=== PATIENT | female | born 1940 | race Caucasian/White ===

== ENCOUNTER 2022-02-15 12:12 | Outpatient (CLI) | payer MEDICARE, SELFPAY ==
[2022-02-15 12:54] LABS: Hematocrit 40.4 % (37.0-47.0); Hemoglobin 13.2 g/dL (12.0-15.0)
[2022-02-15 13:03] LABS: Estimated Glomerular Filt Rate > 60; Glucose 94 mg/dL (65-110)
== END 2022-02-15 12:13 | disposition home or self-care (01) ==
LOC: ANHLAB 12:15
PROVIDERS: PCP Family Medicine; Visit Provider Orthopaedic Surgery
DX: M17.11 Unilateral primary osteoarthritis, right knee (principal); Z01.818 Encounter for other preprocedural examination
CPT/HCPCS: 36415; 82040; 82565; 82947; 85014; 85018

== ENCOUNTER 2022-03-18 10:58 | Outpatient (CLI) | payer MEDICARE, SELFPAY ==
[2022-03-18 12:28] LABS: Basophils Percent Auto 0.5 % (0.2-1.2); Eosinophils Absolute Auto 0.2 K/mm3 (0-0.3); Hemoglobin 13.5 g/dL (12.0-15.0); Lymphocytes Absolute Auto 1.61 K/mm3 (0.9-3.2); Lymphocytes Percent Auto 28.3 % (18.3-44.2); Mean Corpuscular HGB Conc 32.1 g/dl (32-36); Mean Corpuscular Hemoglobin 32.1 pg (26-34); Mean Platelet Volume 11.1 fl (7.4-10.4); Monocytes Absolute Auto 0.5 K/mm3 (0.1-0.6); Monocytes Percent Auto 8.5 % (2.6-8.5); Neutrophils Absolute Auto 3.4 K/mm3 (1.3-6.7); Neutrophils Percent Auto 59.7 % (45.5-73.1); Platelet Count Result 156 k/mm3 (150-375); Red Cell Distribution Width 13.3 % (11.5-14.5); White Blood Count 5.7 K/mm3 (4.5-10.0)
[2022-03-18 12:33] LABS: Albumin Level 4.2 g/dL (3.5-5.1)
[2022-03-18 12:37] LABS: Anion Gap 4 mmol/L (8-16); Blood Urea Nitrogen 24 mg/dL (7-17); Calcium 9.1 mg/dL (8.4-10.2); Carbon Dioxide 35 mmol/L (22-30); Chloride 100 mmol/L (98-107); Estimated Glomerular Filt Rate 60; Glucose 107 mg/dL (65-110); Potassium 5.4 mmol/L (3.4-5.0); Sodium 139 mmol/L (137-145)
[2022-03-18 12:40] LABS: Hemoglobin A1C 5.3 % (<5.7)
[2022-03-18 12:40] LABS: Urine Cotinine NEGATIVE
== END 2022-03-18 10:59 | disposition home or self-care (01) ==
LOC: ANHSURGERY 11:07
PROVIDERS: Anesthesiology; PCP Family Medicine; Visit Provider Orthopaedic Surgery
DX: Z01.812 Encounter for preprocedural laboratory examination (principal); M17.0 Bilateral primary osteoarthritis of knee; Z51.81 Encounter for therapeutic drug level monitoring; Z79.899 Other long term (current) drug therapy
CPT/HCPCS: 80048; 80307; 82040; 83036; 85025; 87081

== ENCOUNTER 2022-04-20 00:11 | Day surgery (SDC) | payer MEDICARE, SELFPAY ==
--- NOTE | 2022-03-18 10:53 | PC.NURSE ---
Addendum entered by Janell Nicholas RN 03/18/22 12:03: PT/DAUGHTER INSTRUCTED NOT TO TAKE ESCITALOPRAM THE AM OF SURGERY - UNDERSTANDING VOICED. Addendum entered by Janell Nicholas RN 03/18/22 11:50: PT/DAUGHTER INSTRUCTED FOR PT TO TAKE LAMOTRIGINE AM OF SURGERY - UNDERSTANDING VOICED Original Note: Report to the Outpatient Waiting Room, entrance under the green pavilion located off [address], at time _0600_ on date _04/20/22_. OR Time: _729_. PACK A SMALL OVERNIGHT BAG AND LEAVE IN THE CAR - You and your visitor will be asked a series of questions to screen for COVID 19 for your protection. - Only one visitor is allowed at this time. - The patient visitor is requested to leave or wait in car when not with patient. VISITING HOURS 10AM-8PM, USE MAIN HOSPITAL ENTRANCE #1 - A mask is required within the hospital. Patients may have clear liquids (water, carbonated beverages, clear teas, apple juice) until 3 hours prior to surgery (0430 AM) with a maximum of 20 ounces. - No food from midnight until time of surgery Take the following medications with a SIP of water the morning of surgery: _ESCITALOPRAM, METOPROLOL, DORZOLAMIDE EYE DROP, PAIN MED IF NEEDED._ Medications to discontinue per DR. TONY - ASPIRIN & MELOXICAM 7 DAYS PRIOR TO SURGERY, Date to take last dose 04/12/22_ Medications to discontinue per ANESTHESIA - PRESERVISION AREDS-2 3 DAYS PRIOR TO SURGERY, Date to take last dose 04/16/22_ Please no make-up, nail french, hairspray, perfume, deodorant, or body powder the day of surgery. No jewelry (including any body piercings) or valuables the day of surgery, leave them at home. Please take a shower or bath the night before, or the morning of, surgery with an antibacterial soap. Wear comfortable, loose fitting clothing. - Jewelry must be removed prior to entering the operating room. Rings and piercings that are not removed may be cut off. - The hospital will not accept responsibility for valuables. - Please leave all valuables, including medications, at home the day of surgery. If you are going home after surgery, a licensed diesel pile driver operator must drive you home. - NO public transportation without another adult. - We recommend that an adult stay with you for 24 hours following discharge. - We also recommend that you do not drive, make important decision, drink alcoholic beverages, or take any drugs that were not prescribed by your health care provider for at least 24 hours after your discharge time. Follow any additional instructions given to you from DR. TONY. TOTAL JOINT CLASS 04/14/22 @ [address] [place] [address] LOWER LEVEL, USE MAIN HOSPITAL ENTRANCE # 1 If you or anyone in your household have experienced Covid symptoms in the week before your surgery, please notify your surgeon or the nurse liaison at the phone number below for possible testing. Instructions given to _PT & DAUGHTER ( JESSICA)_and asked if any additional questions and then verbalized understanding. Patient advised to call surgeon office or pre surgery nurse liaison [phone] if any additional questions.
[2022-03-18 11:39] VITALS: BP 180/80; PULSE 62; RESP 18; TEMP 36.7; O2SAT 95; BMI 30.7
--- NOTE | 2022-04-19 13:39 | WPDANESEPPF ---
Anes - Initial Pre Proc Eval Procedure: Operation Date: 04/20/22 07:30 Proposed Procedures p Right Total Knee Arthroplasty - Benjamin Rodriguez MD Date/Time: 04/19/22 13:39 Surgeon: Benjamin Rodriguez MD Pre Op Diagnosis: primary oa right knee Patient Data Age: 81 Gender: F Height: 1.64 m Weight: 82.5 kg Last Vital Signs Temp 36.7 C 03/18/22 11:39 Pulse 62 03/18/22 11:39 Resp 18 03/18/22 11:39 BP 180/80 H 03/18/22 11:39 Pulse Ox 95 03/18/22 11:39 O2 Del Method Room Air 03/18/22 11:39 Allergies Allergy/AdvReac Type Severity Reaction Status Date / Time No Known Allergies Allergy Verified 04/20/22 06:04 Home Medications Medication Instructions Recorded Confirmed Type aspirin 81 mg chewable tablet 81 mg PO HS 02/10/22 04/20/22 History (Abe Chewable Low Dose Aspirin) escitalopram oxalate 20 mg tablet 20 mg PO HS 02/10/22 04/20/22 History hydrochlorothiazide 25 mg tablet 25 mg PO QAM 02/10/22 04/20/22 History lamotrigine 200 mg tablet 200 mg PO QAM 02/10/22 04/20/22 History losartan 50 mg tablet 50 mg PO BID 02/10/22 04/20/22 History metoprolol tartrate 25 mg tablet 75 mg PO QAM 02/10/22 04/20/22 History simvastatin 20 mg tablet 20 mg PO HS 02/10/22 04/20/22 History vit C 250 mg-vit E 90 mg-zinc 40 1 tablet PO BID 02/10/22 04/20/22 History mg-copper 1 [id number] capsule (PreserVision AREDS-2) dorzolamide 2 % eye drops (Trusopt) 1 drp TID 03/18/22 04/20/22 History latanoprost 0.005 % eye drops 1 drp HS 03/18/22 04/20/22 History amlodipine 5 mg tablet 5 tablet PO QPM 04/20/22 04/20/22 History Patient hx anesthesia problems: none Family hx anesthesia problems: none Results Review: All pre-operative results and documents have been reviewed as part of the pre-operative evaluation. PMFSH Past Medical History Medical History (Updated 04/19/22 @ 13:40 by Guero Thomas MD) Arthritis History of benign ovarian tumor (~2002) History of bipolar disorder History of breast cancer (~2002) History of stress test Hyperlipidemia Hypertension CAT (obstructive sleep apnea) Surgical History Surgical History History of carpal tunnel release (~2020) History of cataract surgery History of hysterectomy (~2002) Family History Family History Other Cancer Social History Social History Smoking packs per day: 1 Smoking cigarettes per day: 20.0 Years smoked: 41 Smoking pack-years: 41.00 Smoking status: Former smoker Tobacco type: cigarettes Second hand tobacco smoke exposure: No Smoking end date: 11/14/79 Alcohol intake: never Drinks per week: 2 Substance use: never Substance use type: does not use Living arrangements: with friend(s) Additional living arrangements comments: LIVES WITH FRIEND JUAN ERICKSON Spiritual care concerns: No Anes - Eval Final PreProcedure Day of Procedure 04/19/22 13:39 Patient weight: obese Heart: regular rate and rhythm Lungs: clear to auscultation and normal air movement Airway: Mallampati scale class II Neurological: alert and oriented Last oral intake: >/= 8 hours ASA classification: III Emergent: no Anesthetic plan: proceed Anesthesia type and monitoring: general LMA Results Review: All pre-operative results and documents have been reviewed as part of the pre-operative evaluation. Informed Consent: The patient's anesthetic plan and its attendant risks and benefits were discussed with the patient/family/POA. Questions were solicited and answers provided to the satisfaction of the patient/family/POA.
--- NOTE | 2022-04-19 13:40 | WPDANESPNB ---
Anes - Peripheral Nerve Block Date/Time: 04/19/22 13:40 I have discussed with the patient/family/POA the placement of a peripheral nerve block for post-operative pain management, including associated risks, benefits, complications, and side effects. Alternative methods of post-operative analgesia were detailed. Questions were solicited and answers provided to the satisfaction of the patient/family/POA. Time-Out: A pre-procedural Time-Out was completed immediately before starting the procedure and confirmed: Patient Identification, Site, Procedure, Patient Position and the Availability of Requisite Equipment. Clinical Indications: Acute post-operative pain management requested by the operative surgeon. Nerve Block Insertion Note Anes-nerve block: adductor canal right Patient position: supine Skin prep: chlorhexidine Needle: 22 gauge, stimulating, insulated echogenic needle. Needle length: 80 mm Technique: ultrasound Technique comment: in plane Injectate: bupivacaine 0.5% with epi 5 mcg/ml (30cc) Observations: tolerated well Complications: none Procedure start time:: 715 Procedure end time:: 720
[2022-04-20] VITALS (17 sets, daily range): BP systolic 97–119; BP diastolic 42–60; PULSE 69–88; RESP 12–17; TEMP 36.3–37; O2SAT 91–100
--- NOTE | ~2022-04-20 | XR_ITS ---
EXAMINATION: XR knee RT 2V DATE: 04/20/2022 10:10 CDT INDICATION: Right total knee arthroplasty TECHNIQUE: 2 views right knee FINDINGS: There is a right total knee arthroplasty in expected position. Subcutaneous gas with fluid and air in the joint are consistent with recent surgery. No evidence of periprosthetic fracture. IMPRESSION: 1. Recent right total knee arthroplasty. Reviewed, dictated and finalized at location B.
[2022-04-20] MEDS: ACETAMINOPHEN 500 MG TABLET 1000 MG PO (06:10)
[2022-04-20] MEDS: LACTATED RINGERS 1,000 ML 30 ML IV CONT ×2 (06:56→09:52)
[2022-04-20] MEDS: TRANEXAMIC ACID 1,000MG/ISO100 1,000 MG/100 ML BAG 200 MG IVPB (06:56)
--- NOTE | 2022-04-20 07:17 | WPDHPUPDATE1 ---
History and Physical Update Update Date/Time: 04/20/22 07:17 History and Physical has been reviewed, including an updated exam of the patient. There are NO changes in the patient's condition. Risks, benefits, and alternatives have been discussed and questions answered. Patient agrees to proceed with procedure.
[2022-04-20] MEDS: ceFAZolin 2 GM/D5W 50 ML 2 GM/50 ML BAG IVPB ×2 (07:29→16:45)
--- NOTE | 2022-04-20 13:59 | PM.IMCN ---
Assessment and Plan Assessment and plan (1) Status post total right knee replacement: Code(s): Z96.651 - Presence of right artificial knee joint Status: Acute Assessment and Plan: POD 0 Post op care managed by ortho Pain medications: Oxycodone 5-10 mg p.o. Q 4 p.r.n., meloxicam 7.5 mg p.o. b.i.d. Antibiotic therapy: Cefazolin x3 bags Antiemetic Zofran 4 mg q.4 DVT prophylaxis per Orthopedic surgery PT and OT Weight-bearing status as tolerated (2) Primary osteoarthritis of knees, bilateral: Code(s): M17.0 - Bilateral primary osteoarthritis of knee Status: Acute Assessment and Plan: See above (3) Hypertension: Code(s): I10 - Essential (primary) hypertension Status: Acute Assessment and Plan: Current BP 102/57 Continue Home losartan 50mg PO BID, metoprolol 75mg PO Qam, amlodipine 5 PO, HCTZ 25mg PO Trend Blood pressure Adjust therapy as indicated (4) CAT (obstructive sleep apnea): Code(s): G47.33 - Obstructive sleep apnea (adult) (pediatric) Status: Acute Assessment and Plan: Continue with home treatment (5) Hyperlipidemia: Code(s): E78.5 - Hyperlipidemia, unspecified Status: Acute Assessment and Plan: Continue home simvastatin Check LFTs in the am HPI Data of Consult Consult date: 04/20/22 Requesting Physician: Benjamin Rodriguez MD Primary Care Provider: Zack SweeneyMD Consult Narrative Narrative: Jacquie Peters is a 81 year old female with a past medical history of HTN, HLD, and CAT who is here for an elective right knee replacement with Dr. Rodriguez. She is currently sitting in the chair and she is saying that she has very little pain. She currently has ice on her knee. She also is alert and oriented x 4 and is very aware. It was brought to my attention that her blood pressure can be as high as 180/95. However she stated that her blood pressure has actually been doing well. Her daughter stated that her blood pressure has been running even in preop. She stated that she is going to call the chief design engineer Dr. Earl about her blood pressure. She is doing really well. She is denying chest pain, shortness of breath, nausea, vomiting, diarrhea, constipation, weakness, or fatigue. Review of Systems Review of Systems: All systems reviewed & are unremarkable except as noted in HPI and below PMFSH Past Medical History Medical History Arthritis History of benign ovarian tumor (~2002) History of bipolar disorder History of breast cancer (~2002) History of stress test Hyperlipidemia Hypertension CAT (obstructive sleep apnea) Surgical History Surgical History History of carpal tunnel release (~2020) History of cataract surgery History of hysterectomy (~2002) Family History Family History Other Cancer Social History Social History (Updated 04/20/22 @ 14:02 by CRESCENCIO Valentin) Social History: Patient lives with a friend. She wishes to be a full code at this time. She wants her surrogate to be Smoking packs per day: 1 Smoking cigarettes per day: 20.0 Years smoked: 41 Smoking pack-years: 41.00 Smoking status: Former smoker Second hand tobacco smoke exposure: No Alcohol intake: never Drinks per week: 2 Substance use: never Substance use type: does not use Living arrangements: with friend(s) Additional living arrangements comments: LIVES WITH FRIEND JUAN ERICKSON Spiritual care concerns: No Meds Home Medications and Allergies Home Medications Medication Instructions Recorded Confirmed Type aspirin 81 mg chewable tablet 81 mg PO HS 02/10/22 04/20/22 History (Abe Chewable Low Dose Aspirin) escitalopram oxalate
[2022-04-20] MEDS: ASPIRIN 81 MG ENTERIC TABLET PO (16:45)
[2022-04-20] MEDS: SENNA/DOCUSATE SODIUM TABLET 2 TAB PO (16:46)
[2022-04-20] MEDS: LOSARTAN POTASSIUM 50 MG TABLET PO (16:47)
[2022-04-20] MEDS: MELOXICAM 7.5 MG TABLET PO (16:48)
[2022-04-20] MEDS: amLODIPine BESYLATE 5 MG TABLET PO (17:01)
--- NOTE | 2022-04-20 17:32 | W.PM.PROC2 ---
Procedure Note - Detailed Date of Procedure 04/20/22 Pre-op Diagnosis primary oa right knee Post-op Diagnosis Same Procedure Performed Total knee arthroplasty, right. Surgeon Benjamin Rodriguez MD Snuff Packing Machine Operator April Sheikh PA-C Anesthesia General and Regional (subsartorial block) Findings Bone quality was fair. Moderate valgus deformity was passively correctable. Thus only minimal releases along the lateral tibial capsular margin were required for balancing of the knee. Description of Procedure The patient was brought to the operating room. A general anesthetic was administered. The leg was prepped and draped in the usual sterile fashion. The limb was elevated and the tourniquet inflated to 300 mmHg during initial exposure, and cementation. A longitudinal incision was created along the medial border of the patella and patellar tendon, and a trivector approach to the knee was performed. No medial release was taken. Slight lateral release at the anterior and lateral tibia. The knee was then flexed. The osteophytes were carefully removed. The intramedullary guide was placed in the femoral canal. The distal femoral resection was then taken with the oscillating saw. The collateral ligaments were carefully protected. The tibia was carefully exposed. The jig was applied, and the proximal tibia was resected according to preoperative plan. The knee was balanced in extension. Appropriate releases were taken where needed. The anterior cruciate ligament and meniscal remnants were removed. The posterior cruciate ligament was preserved. The patella was measured. Patellar resection was carried out with the oscillating saw. The lug holes drilled. The femur was sized and rotation assessed using a combination of gap balancing, posterior referencing, and the AP axis. The 4 in 1 cutting block was used to finish the femoral cuts after equal gaps were assured. The osteophytes were carefully removed from the back of the knee. The knee was copiously irrigated with antibiotic solution periodically throughout the procedure. The meniscal remnants were removed. The spacer block was used to confirm equal flexion and extension gaps. The tibia was sized and broached. The bony surfaces were prepared for cementing with pulsatile lavage. The real tibial and femoral and patellar components were cemented into position. Excess cement was carefully removed. Patellar tracking was carefully assessed. No additional releases were required. Dilute sterile Betadine soak performed for three minutes. Copious irrigation then performed. The wound was closed with #1 Vicryl suture, #2, 2-0, and 3-0 barbed suture, followed by Steri-Strips. A sterile bulky dressing was applied. Meticulous hemostasis was maintained throughout the procedure. The bipolar cautery device was used. The pain relieving mixture was injected into the periarticular tissues during the procedure. There were no complications. The patient was extubated and brought to the recovery room in stable condition after the application of sterile dressing with [place] bandage. Implants SHIMAU[employer] Print System Triathlon knee system, low profile cemented tibia size 3, cemented cruciate retaining femoral component size 3 ,and an 11 mm cruciate retaining polyethylene insert. 32mm asymmetric all polyethylene patella component. Estimated Blood Loss 200 Drains No Pathology None sent Complications No immediate complications Condition Stable Disposition PACU [facility] Billing Surgery - Charge Forward: Surgery Billing
[2022-04-20] MEDS: FAMOTIDINE 20 MG TABLET PO (20:37)
[2022-04-20] MEDS: SIMVASTATIN 20 MG TABLET PO (20:37)
[2022-04-20] MEDS: ESCITALOPRAM OXALATE 10 MG TABLET 20 MG PO (20:37)
[2022-04-20] MEDS: oxyCODONE HCL (*CRX) 5 MG TAB IR PO (20:41)
[2022-04-21 00:41] VITALS: BP 137/57; PULSE 70; RESP 16; TEMP 37.1; O2SAT 93
[2022-04-21] MEDS: ceFAZolin 2 GM/D5W 50 ML 2 GM/50 ML BAG IVPB ×2 (00:42→09:10)
[2022-04-21 04:41] VITALS: BP 114/53; PULSE 79; RESP 16; TEMP 36.3; O2SAT 94
[2022-04-21 05:35] LABS: Basophils Percent Auto 0.3 % (0.2-1.2); Eosinophils Percent Auto 0.7 % (0-4.4); Hemoglobin 11.6 g/dL (12.0-15.0); Immature Platelet Fraction Pct 5.4 % (0.9-11.2); Lymphocytes Absolute Auto 0.25 K/mm3 (0.9-3.2); Lymphocytes Percent Auto 8.6 % (18.3-44.2); Mean Corpuscular HGB Conc 32.2 g/dl (32-36); Mean Corpuscular Volume 99.4 fl (80-100); Mean Platelet Volume 11.1 fl (7.4-10.4); Monocytes Absolute Auto 0.3 K/mm3 (0.1-0.6); Monocytes Percent Auto 10.3 % (2.6-8.5); Neutrophils Absolute Auto 2.3 K/mm3 (1.3-6.7); Neutrophils Percent Auto 80.1 % (45.5-73.1); Platelet Count Result 85 k/mm3 (150-375); Red Blood Count 3.62 M/mm3 (4.2-5.4); Red Cell Distribution Width 13.5 % (11.5-14.5); White Blood Count 2.9 K/mm3 (4.5-10.0)
[2022-04-21 05:46] LABS: Alanine Aminotransferase 18 U/L (6-35); Albumin Level 3.6 g/dL (3.5-5.1); Alkaline Phosphatase 61 U/L (38-126); Anion Gap 6 mmol/L (8-16); Aspartate Amino Transferase 32 U/L (14-36); Bilirubin,Total 0.4 mg/dL (0.2-1.3); Blood Urea Nitrogen 40 mg/dL (7-17); Calcium 7.8 mg/dL (8.4-10.2); Carbon Dioxide 30 mmol/L (22-30); Chloride 99 mmol/L (98-107); Estimated CRCL calculation 36 ml/min; Estimated Glomerular Filt Rate 48; Glucose 111 mg/dL (65-110); Magnesium 1.8 mg/dL (1.6-2.3); Potassium 4.2 mmol/L (3.4-5.0); Sodium 135 mmol/L (137-145)
[2022-04-21] MEDS: oxyCODONE HCL (*CRX) 5 MG TAB IR PO (06:22)
[2022-04-21] MEDS: SENNA/DOCUSATE SODIUM TABLET 2 TAB PO (09:09)
[2022-04-21] MEDS: polyethylene glycoL 3350 17 GM POWD.PACK PO (09:09)
[2022-04-21] MEDS: ASPIRIN 81 MG ENTERIC TABLET PO (09:10)
[2022-04-21] MEDS: lamoTRIgine 100 MG TABLET 200 MG PO (09:10)
[2022-04-21 09:11] VITALS: PULSE 79
[2022-04-21] MEDS: METOPROLOL TARTRATE 25 MG TABLET 75 MG PO (09:11)
--- NOTE | 2022-04-21 09:12 | WPDANESPN ---
Anes - Prog Note Post-Op Date/Time: 04/21/22 09:12 Cardiovascular status: normal Respiratory status: normal Airway patency: baseline Mental status: baseline Post-Op hydration status: normal Vital Signs: Last Vital Signs Temp 36.3 C L 04/21/22 04:41 Pulse 79 04/21/22 04:41 Resp 16 04/21/22 04:41 BP 114/53 L 04/21/22 04:41 Pulse Ox 94 04/21/22 04:41 O2 Del Method Room Air 04/20/22 21:12 O2 Flow Rate 2 04/20/22 11:30 Pain Score (VAS): 2 I/O: Intake & Output 04/20/22 04/21/22 04/21/22 23:59 07:59 15:59 Intake Total 540 500 480 Output Total 100 800 Balance 440 -300 480 Laboratory Tests 04/21/22 05:27 04/21/22 05:27 04/20/22 04/21/22 04/21/22 06:54 05:27 05:27 WBC 2.9 L RBC 3.62 L Hgb 11.6 L Hct 36.0 L MCV 99.4 MCH 32.0 MCHC 32.2 RDW 13.5 Plt Count 85 L MPV 11.1 H Immature Gran % (Auto) 0.0 Neut % (Auto) 80.1 H Lymph % (Auto) 8.6 L Branch % (Auto) 10.3 H Eos % (Auto) 0.7 Baso % (Auto) 0.3 Lymph # (Auto) 0.25 L Branch # (Auto) 0.3 Eos # (Auto) 0.0 Baso # (Auto) 0.0 Abs Immat Gran (auto) 0.00 Absolute Neuts (auto) 2.3 Absolute Nucleated RBC 0.0 Nucleated RBC % 0.0 % Immature Plt Fraction 5.4 Sodium 135 L Potassium 4.2 Chloride 99 Carbon Dioxide 30 Anion Gap 6 L BUN 40 H D Creatinine 1.10 H Estim Creat Clear Calc 36 Estimated GFR 48 L Glucose 111 H Calcium 7.8 L Magnesium 1.8 Total Bilirubin 0.4 AST 32 ALT 18 Alkaline Phosphatase 61 Total Protein 6.0 L Albumin 3.6 Antibody Identification Anti-D Antigen Identification C Antigen - NEGATIVE HENRY, Complement Interp Not Performed Patient Feedback: Patient satisfied with anesthetic care.
--- NOTE | 2022-04-21 09:13 | PM.DS ---
DS: Admitting Diagnosis Discharge Date 04/21/22 Admitting Diagnosis OA knee Right DS: Discharge Diagnosis Discharge Diagnosis (1) Status post total right knee replacement: Code(s): Z96.651 - Presence of right artificial knee joint Status: Acute Plan Postop day 1: Right total knee arthroplasty. Patient tolerated procedure well. No complications. Pain manageable with pain medication. No numbness or tingling. We had a lengthy discussion regarding postoperative wound care, limitations, expectations, and exercises. Patient shows good understanding. He has had initial physical therapy and is tolerating it well. DVT prophylaxis: 81 mg baby aspirin b.i.d. for 14 days. Pain medication: Percocet. Prednisone. Meloxicam. Patient has followup appointment with Dr. Rodriguez in 3 weeks. DS: Summary Hospital Course Reason for hospitalization: Total knee arthroplasty Hospital Course: Patient tolerated procedure well. Has had initial PT/OT. Status at Discharge Functional status at discharge: uses cane/walker Overall status at discharge: patient is progressing back to baseline Time Spent with Patient Time attestation: Total time spent providing and/or coordinating discharge services: Exam Narrative: Overweight 81 y/o female. Resting comfortably in bed. Wearing compression socks bilaterally. Dressing intact with no drainage. Moderate swelling. Small area of ecchymosis. No erythema. No hematoma. Range of motion limited due to pain. Calf nontender. Neurologic status intact. No varicosities. Distal pulses palpable. DS: Data Data Completed and Pending Labs on day of discharge: Labs from last 24 hours 04/21/22 04/21/22 04/20/22 05:27 05:27 06:54 WBC 2.9 L RBC 3.62 L Hgb 11.6 L Hct 36.0 L MCV 99.4 MCH 32.0 MCHC 32.2 RDW 13.5 Plt Count 85 L MPV 11.1 H Immature Gran % (Auto) 0.0 Neut % (Auto) 80.1 H Lymph % (Auto) 8.6 L Dickey % (Auto) 10.3 H Eos % (Auto) 0.7 Baso % (Auto) 0.3 Lymph # (Auto) 0.25 L Dickey # (Auto) 0.3 Eos # (Auto) 0.0 Baso # (Auto) 0.0 Abs Immat Gran (auto) 0.00 Absolute Neuts (auto) 2.3 Absolute Nucleated RBC 0.0 Nucleated RBC % 0.0 % Immature Plt Fraction 5.4 Sodium 135 L Potassium 4.2 Chloride 99 Carbon Dioxide 30 Anion Gap 6 L BUN 40 H D Creatinine 1.10 H Estim Creat Clear Calc 36 Estimated GFR 48 L Glucose 111 H Calcium 7.8 L Magnesium 1.8 Total Bilirubin 0.4 AST 32 ALT 18 Alkaline Phosphatase 61 Total Protein 6.0 L Albumin 3.6 Antibody Identification Anti-D Antigen Identification C Antigen - NEGATIVE HENRY, Complement Interp Not Performed Discharge Plan Discharge Patient Disposition: Home, Self-Care Discharge Instructions: See green instruction sheets Patient Instructions: Help Prevent Suicide in Older Adults (DC), Suicide Prevention (DC) Stand Alone Forms: General Discharge Instructions Follow-up/Referrals: April Sheikh PA [Physician Cloud Developer] - Discharge Medications: New prednisone 5 mg tablet 5 mg PO DAILY 21 Days Qty: 21 0RF oxycodone-acetaminophen 5-325 mg tablet 1 - 2 tablet PO Q4-6H MDD 6 PRN (Reason: pain) Qty: 30 0RF meloxicam 15 mg tablet 15 mg PO DAILY Qty: 30 0RF Rx Instructions: Cut in half. Take 1/2 in morning and 1/2 at night. Take with food. Stop if stomach upset. aspirin 81 mg tablet,delayed release (DR/EC) 81 mg PO BID 14 Days Qty: 28 0RF Continued simvastatin 20 mg tablet 20 mg PO HS hydrochlorothiazide 25 mg tablet 25 mg PO QAM metoprolol tartrate 25 mg tablet 75 mg PO QAM losartan 50 mg tablet 50 mg PO BID lamotrigine 200 mg tablet 200 mg PO QAM escitalopram oxalate 20 mg tablet 20 mg PO HS PreserVision AREDS-2 250-90-40-1 mg capsule 1 tablet PO BID latanoprost 0.005 % drops
[2022-04-21] MEDS: MELOXICAM 7.5 MG TABLET PO (09:14)
[2022-04-21] MEDS: FAMOTIDINE 20 MG TABLET PO (09:14)
[2022-04-21] MEDS: LOSARTAN POTASSIUM 50 MG TABLET PO (09:14)
[2022-04-21] MEDS: hydroCHLOROthiazide 25 MG TABLET PO (09:15)
[2022-04-21] MEDS: predniSONE 5 MG TABLET PO (09:15)
[2022-04-21 10:00] VITALS: BP 123/47; PULSE 76; RESP 16; TEMP 36.9; O2SAT 94
[2022-04-21] MEDS: oxyCODONE HCL (*CRX) 5 MG TAB IR 10 MG PO (11:10)
== END 2022-04-21 12:15 | disposition home or self-care (01) ==
LOC: ANHSURGERY 10:11 → ANH2MED 10:59
PROVIDERS: Nurse Practitioner; Orthopaedic Surgery; PCP Family Medicine; Visit Provider Physician Assistant
PROC: (CPT 27447; principal; 2022-04-20 07:30)
DX: M17.11 Unilateral primary osteoarthritis, right knee (principal); G89.18 Other acute postprocedural pain; I10 Essential (primary) hypertension; E78.5 Hyperlipidemia, unspecified; G47.33 Obstructive sleep apnea (adult) (pediatric); Z85.3 Personal history of malignant neoplasm of breast; F31.9 Bipolar disorder, unspecified; Z79.82 Long term (current) use of aspirin; Z87.891 Personal history of nicotine dependence; E66.9 Obesity, unspecified; Z68.29 Body mass index [BMI] 29.0-29.9, adult
CPT/HCPCS: 27447; 64447; 36415; 73560; 80048; 80053; 80307; 82040; 83036; 83735; 85025; 85055; 86850; 86880; 86900; 86901; 86902; 87081; 97110; 97161; 97165; 97530; 97535; A9270; C1713; C1776; J0131; J0171; J0690; J1100; J1885; J2250; J2270; J2405; J2704; J2795; J3010; J7120; J7512

== ENCOUNTER 2022-10-27 12:17 | Outpatient (CLI) | payer MEDICARE, SELFPAY ==
[2022-10-27 12:46] LABS: Hematocrit 39.4 % (37.0-47.0); Hemoglobin 12.8 g/dL (12.0-15.0)
--- NOTE | 2022-10-27 12:48 | ECG_ITS ---
Measurements Intervals [place] Rate: 63 P: 72 UT: 160 QRS: -15 QRSD: 93 T: 24 QT: 391 QTc: 402 Interpretive Statements SINUS RHYTHM NO PREVIOUS ECG AVAILABLE FOR COMPARISON Electronically Signed On 10-27-2022 13:27:12 SCRAP HOOKER by Abi Avalos M.D.
[2022-10-27 12:54] LABS: Albumin Level 4.3 g/dL (3.5-5.1); Estimated Glomerular Filt Rate 60; Glucose 94 mg/dL (65-110)
[2022-10-27 12:57] LABS: Urine Cotinine NEGATIVE
[2022-10-27 12:58] LABS: Hemoglobin A1C 5.6 % (<5.7)
== END 2022-10-27 12:18 | disposition home or self-care (01) ==
PROVIDERS: Visit Provider Orthopaedic Surgery
DX: M17.12 Unilateral primary osteoarthritis, left knee (principal); I10 Essential (primary) hypertension; Z92.89 Personal history of other medical treatment; E78.5 Hyperlipidemia, unspecified; Z79.899 Other long term (current) drug therapy
CPT/HCPCS: 80307; 82040; 82565; 82947; 83036; 85014; 85018; 93005

== ENCOUNTER 2023-01-06 11:48 | Outpatient (CLI) | payer MEDICARE, SELFPAY ==
[2023-01-06 13:20] LABS: Basophils Absolute Auto 0.1 K/mm3 (0.0-0.1); Basophils Percent Auto 0.7 % (0.2-1.2); Eosinophils Absolute Auto 0.2 K/mm3 (0-0.3); Eosinophils Percent Auto 2.4 % (0-4.4); Hematocrit 41.2 % (37.0-47.0); Hemoglobin 13.5 g/dL (12.0-15.0); Immature Granulocyte Absolute 0.07 K/mm3 (0.00-0.031); Immature Granulocyte Percent A 0.8 % (0-0.5); Lymphocytes Absolute Auto 1.83 K/mm3 (0.9-3.2); Mean Corpuscular HGB Conc 32.8 g/dl (32-36); Mean Corpuscular Hemoglobin 32.5 pg (26-34); Mean Platelet Volume 10.9 fl (7.4-10.4); Monocytes Absolute Auto 1.5 K/mm3 (0.1-0.6); Monocytes Percent Auto 16.4 % (2.6-8.5); Neutrophils Absolute Auto 5.5 K/mm3 (1.3-6.7); Neutrophils Percent Auto 59.7 % (45.5-73.1); Platelet Count Result 191 k/mm3 (150-375); Red Blood Count 4.16 M/mm3 (4.2-5.4); Red Cell Distribution Width 13.5 % (11.5-14.5); White Blood Count 9.2 K/mm3 (4.5-10.0)
[2023-01-06 13:26] LABS: Albumin Level 4.3 g/dL (3.5-5.1)
[2023-01-06 13:36] LABS: Urine Cotinine NEGATIVE
[2023-01-06 14:14] LABS: Hemoglobin A1C 5.6 % (<5.7)
[2023-01-07 12:16] LABS: Anion Gap 7 mmol/L (8-16); Blood Urea Nitrogen 22 mg/dL (7-17); Calcium 8.6 mg/dL (8.4-10.2); Carbon Dioxide 33 mmol/L (22-30); Chloride 98 mmol/L (98-107); Estimated Glomerular Filt Rate 60; Glucose 105 mg/dL (65-110); Potassium 4.3 mmol/L (3.4-5.0); Sodium 138 mmol/L (137-145)
== END 2023-01-06 11:49 | disposition home or self-care (01) ==
LOC: ANHSURGERY 11:54
PROVIDERS: PCP Family Medicine; Visit Provider Orthopaedic Surgery
DX: M17.12 Unilateral primary osteoarthritis, left knee (principal); Z01.818 Encounter for other preprocedural examination
CPT/HCPCS: 36415; 80048; 80307; 82040; 83036; 85025; 87081

== ENCOUNTER 2023-06-23 11:50 | Outpatient (CLI) | payer MEDICARE, SELFPAY ==
[2023-06-23 14:09] LABS: Basophils Percent Auto 0.2 % (0.2-1.2); Eosinophils Absolute Auto 0.2 K/mm3 (0-0.3); Eosinophils Percent Auto 2.7 % (0-4.4); Hematocrit 36.4 % (37.0-47.0); Hemoglobin 11.2 g/dL (12.0-15.0); Immature Granulocyte Absolute 0.02 K/mm3 (0.00-0.031); Immature Granulocyte Percent A 0.3 % (0-0.5); Lymphocytes Absolute Auto 1.71 K/mm3 (0.9-3.2); Lymphocytes Percent Auto 29.4 % (18.3-44.2); Mean Corpuscular HGB Conc 30.8 g/dl (32-36); Mean Corpuscular Hemoglobin 31.6 pg (26-34); Mean Corpuscular Volume 102.8 fl (80-100); Mean Platelet Volume 10.7 fl (7.4-10.4); Monocytes Absolute Auto 0.5 K/mm3 (0.1-0.6); Monocytes Percent Auto 8.4 % (2.6-8.5); Neutrophils Absolute Auto 3.4 K/mm3 (1.3-6.7); Platelet Count Result 201 k/mm3 (150-375); Red Blood Count 3.54 M/mm3 (4.2-5.4); Red Cell Distribution Width 15.6 % (11.5-14.5); White Blood Count 5.8 K/mm3 (4.5-10.0)
[2023-06-23 14:21] LABS: Albumin Level 4.1 g/dL (3.5-5.1)
[2023-06-23 14:23] LABS: Anion Gap 5 mmol/L (8-16); Blood Urea Nitrogen 17 mg/dL (7-17); Calcium 8.6 mg/dL (8.4-10.2); Carbon Dioxide 34 mmol/L (22-30); Chloride 100 mmol/L (98-107); Estimated Glomerular Filt Rate > 60; Glucose 95 mg/dL (65-110); Potassium 4.9 mmol/L (3.4-5.0); Sodium 139 mmol/L (137-145)
[2023-06-23 15:20] LABS: Urine Cotinine NEGATIVE
== END 2023-06-23 11:51 | disposition home or self-care (01) ==
LOC: ANHSURGERY 11:56
PROVIDERS: Anesthesiology; PCP Family Medicine; Visit Provider Orthopaedic Surgery
DX: Z01.818 Encounter for other preprocedural examination (principal); Z51.81 Encounter for therapeutic drug level monitoring; M17.12 Unilateral primary osteoarthritis, left knee
CPT/HCPCS: 36415; 80048; 80307; 82040; 83036; 85025; 87081

== ENCOUNTER 2023-07-21 03:02 | Day surgery (SDC) | payer MEDICARE, SELFPAY ==
[2023-06-23 12:01] VITALS: BMI 30.9
[2023-06-23 12:30] VITALS: BP 141/56; PULSE 65; RESP 16; TEMP 37.2; O2SAT 92
--- NOTE | 2023-06-23 12:53 | PC.NURSE ---
Report to the Outpatient Waiting Room, entrance under the green pavilion located off [facility], at time __6:00AM on date __07/21/23 . Planned Procedure Time: __7:30AM . Time changes happen often and if your time is changed the preop area will call you the afternoon before. - You and your visitor will be asked to self-screen and do not enter if you have any COVID symptoms. - A mask is optional within the hospital at this time. Patients may have clear liquids (water, carbonated beverages, clear teas, apple juice) until 3 hours prior to surgery with a maximum of 20 ounces. - No food from midnight until time of surgery Take the following medications with a SIP of water the morning of surgery: _AMLODIPINE, METOPROLOL, LAMOTRIGINE, EYE DROPS DO NOT STOP ANY OF YOUR OTHER PRESCRIPTION MEDICATIONS PRIOR TO SURGERY ?EXCEPT THE FOLLOWING Medications to discontinue per physician HOLD VITAMIN/SUPPLEMENTS FOR 3 DAYS PRE-OP Date to take last dose 07/17/23 Please no make-up, nail emirati, hairspray, perfume, deodorant, or body powder the day of surgery. No jewelry (including any body piercings) or valuables the day of surgery, leave them at home. Please take a shower or bath the night before, or the morning of, surgery with an antibacterial soap. Wear comfortable, loose fitting clothing. Children are encouraged to wear pajamas. - Jewelry must be removed prior to entering the operating room. Rings and piercings that are not removed may be cut off. - The hospital will not accept responsibility for valuables. - Please leave all valuables, including medications, at home the day of surgery. If you are going home after surgery, a licensed coal tram driver must drive you home. - NO public transportation without another adult if you receive anesthesia. - We recommend that an adult stay with you for 24 hours following discharge. - We also recommend that you do not drive, make important decision, drink alcoholic beverages, or take any drugs that were not prescribed by your health care provider for at least 24 hours after your discharge time. Follow any additional instructions given to you from your surgeon. If you or anyone in your household have experienced Covid symptoms in the past week, please notify your surgeon or the nurse liaison at the phone number below for possible testing. Telephone instructions given to _PATIENT AND S.O. and asked if any additional questions and then verbalized understanding. Patient advised to call surgeon office or pre surgery nurse liaison [phone] if any additional questions.
[2023-07-21] VITALS (15 sets, daily range): BP systolic 114–146; BP diastolic 48–80; PULSE 64–81; RESP 10–22; TEMP 36–37.1; O2SAT 91–99
--- NOTE | ~2023-07-21 | XR_ITS ---
EXAMINATION: [id number] DATE: 07/21/2023 09:53 INDICATION: Postoperative evaluation following left total knee arthroplasty. TECHNIQUE: Anteroposterior and lateral views of the left knee were obtained. COMPARISON: None. FINDINGS: Left total knee arthroplasty with patellar resurfacing appears well seated and in near anatomic align ment. No fractures identified. Expected postoperative subcutaneous and intra-articular gas. IMPRESSION: 1. Left total knee arthroplasty, negative for postoperative purposes. Reviewed, dictated and finalized at location A.
[2023-07-21] MEDS: LACTATED RINGERS 1,000 ML 30 ML IV CONT ×2 (06:30→09:28)
[2023-07-21] MEDS: ACETAMINOPHEN 500 MG TABLET 1000 MG PO ×3 (06:45→18:04)
[2023-07-21] MEDS: TRANEXAMIC ACID 1,000MG/ISO100 1,000 MG/100 ML BAG 200 MG IVPB (07:00)
--- NOTE | 2023-07-21 07:00 | WPDANESEPPF ---
Anes - Initial Pre Proc Eval Procedure: Operation Date: 07/21/23 07:30 Proposed Procedures p Left Total Knee Arthroplasty - Benjamin Rodriguez MD Date/Time: 07/21/23 07:00 Surgeon: Benjamin Rodriguez MD Pre Op Diagnosis: primary OA left knee Patient Data Age: 82 Gender: F Height: 1.61 m Weight: 79.8 kg Last Vital Signs Temp 37.2 C 06/23/23 12:30 Pulse 65 06/23/23 12:30 Resp 16 06/23/23 12:30 BP 141/56 H 06/23/23 12:30 Pulse Ox 92 06/23/23 12:30 O2 Del Method Room Air 06/23/23 12:30 Allergies Allergy/AdvReac Type Severity Reaction Status Date / Time No Known Allergies Allergy Verified 07/21/23 06:54 Home Medications Medication Instructions Recorded Confirmed Type escitalopram oxalate 20 mg tablet 20 mg PO HS 02/10/22 07/21/23 History lamotrigine 200 mg tablet 200 mg PO QAM 02/10/22 07/21/23 History losartan 50 mg tablet 50 mg PO BID 02/10/22 07/21/23 History metoprolol tartrate 25 mg tablet 75 mg PO QAM 02/10/22 07/21/23 History vit C 250 mg-vit E 90 mg-zinc 40 1 tablet PO BID 02/10/22 07/21/23 History mg-copper 1 [id number] capsule (PreserVision AREDS-2) dorzolamide 2 % eye drops (Trusopt) 1 drp EACH EYE TID 03/18/22 07/21/23 History latanoprost 0.005 % eye drops 1 drp EACH EYE HS 03/18/22 07/21/23 History amlodipine 5 mg tablet 5 tablet PO QAM 04/20/22 07/21/23 History acetaminophen 500 mg tablet 1,000 mg PO Q6H PRN Pain 06/23/23 07/21/23 History atorvastatin 10 mg tablet 10 mg PO HS 06/23/23 07/21/23 History furosemide 20 mg tablet 20 mg PO QAM 06/23/23 07/21/23 History potassium chloride 10 mEq 10 meq PO QAM 06/23/23 07/21/23 History tablet,extended release(part/cryst) (Klor-Con M) Patient hx anesthesia problems: none Family hx anesthesia problems: none Results Review: All pre-operative results and documents have been reviewed as part of the pre-operative evaluation. [facility] Past Medical History Medical History Arthritis History of benign ovarian tumor (~2002) History of bipolar disorder History of breast cancer (~2002) History of stress test Hyperlipidemia Hypertension CAT (obstructive sleep apnea) Surgical History Surgical History History of carpal tunnel release (~2020) History of cataract surgery History of hysterectomy (~2002) Family History Family History Other Cancer Social History Social History Social History: Patient lives with a friend. She wishes to be a full code at this time. She wants her surrogate to be Smoking packs per day: 1 Smoking cigarettes per day: 20.0 Years smoked: 20 Smoking pack-years: 20.00 Smoking status: Former smoker Tobacco type: cigarettes Second hand tobacco smoke exposure: No Smoking end date: 05/14/80 Alcohol intake: current Drinks per week: 2 Substance use: never Substance use type: does not use Lack of Transportation: No Lack of Food: Never True Current Housing: I Have Housing Concerned About Future Housing: No Difficulty Paying Gas/Electric Bills: No Difficulty Paying for Meds: No Currently Unemployed: No Education: High School Diploma/GED Difficulty w/ Childcare or Family Care: No Living arrangements: with family Additional living arrangements comments: S.O. Spiritual care concerns: No Anes - Eval Final PreProcedure Day of Procedure 07/21/23 07:00 Patient weight: obese Heart: regular rate and rhythm Lungs: clear to auscultation Airway: Mallampati scale class II Neurological: alert and oriented Last oral intake: >/= 8 hours ASA classification: III Emergent: no Anesthetic plan: proceed Anesthesia type and monitoring: general LMA and standard monitoring Results Review: All pre-operative results and d
--- NOTE | 2023-07-21 07:11 | WPDHPUPDATE1 ---
History and Physical Update Update Date/Time: 07/21/23 07:11 History and Physical has been reviewed, including an updated exam of the patient. There are NO changes in the patient's condition. Risks, benefits, and alternatives have been discussed and questions answered. Patient agrees to proceed with procedure.
--- NOTE | 2023-07-21 07:28 | WPDANESPNB ---
Anes - Peripheral Nerve Block Date/Time: 07/21/23 07:28 I have discussed with the patient/family/POA the placement of a peripheral nerve block for post-operative pain management, including associated risks, benefits, complications, and side effects. Alternative methods of post-operative analgesia were detailed. Questions were solicited and answers provided to the satisfaction of the patient/family/POA. Time-Out: A pre-procedural Time-Out was completed immediately before starting the procedure and confirmed: Patient Identification, Site, Procedure, Patient Position and the Availability of Requisite Equipment. Clinical Indications: Acute post-operative pain management requested by the operative surgeon. Nerve Block Insertion Note Anes-nerve block: adductor canal left Patient position: supine Skin prep: chlorhexidine Needle: 22 gauge, stimulating, insulated echogenic needle. Needle length: 80 mm Technique: ultrasound Technique comment: mid 0.5mg fent 50mcg Injectate: bupivacaine 0.5% with epi 5 mcg/ml (30ml no epi) and dexamethasone (mg) (4) Observations: tolerated well Complications: none Procedure start time:: 715 Procedure end time:: 722
[2023-07-21] MEDS: ceFAZolin 2 GM/D5W 50 ML 2 GM/50 ML BAG IVPB ×2 (07:30→15:46)
[2023-07-21] MEDS: GENTAMICIN BONE CEMENT REFOBACIN 1 EACH TOPICAL (08:12)
--- NOTE | 2023-07-21 11:20 | ADMGEN ---
This patient, Jacquie Peters, was admitted to 3 [facility] Surg Room 309-01. Patient/family oriented to hospital policies and general routines including ID bracelet, bed and alarms, visiting hours, pain management, procedures, bathroom and other care routines, personal items, smoking policy, room service/diet, and visiting hours. Information on how to activate the Rapid Response Team has been discussed. Patient/Family are encouraged to report perceived risks to care and to ask questions if they do not understand what they are told or what they should do.
[2023-07-21] MEDS: ASPIRIN 81 MG ENTERIC TABLET PO ×2 (12:10→18:04)
[2023-07-21] MEDS: predniSONE 5 MG TABLET PO (12:11)
[2023-07-21] MEDS: LOSARTAN POTASSIUM 50 MG TABLET PO ×2 (12:13→21:39)
[2023-07-21] MEDS: FAMOTIDINE 20 MG TABLET PO ×2 (12:13→21:39)
[2023-07-21] MEDS: lamoTRIgine 100 MG TABLET 200 MG PO (12:14)
--- NOTE | 2023-07-21 15:28 | P.OP_ITS ---
Procedure Note - Detailed Date of Procedure 07/21/23 Pre-op Diagnosis primary OA left knee Post-op Diagnosis Same Procedure Performed Total knee arthroplasty, left. Surgeon Benjamin Rodriguez MD Surgeon Partner April Sheikh PA-C Anesthesia General and Regional (subsartorial block) Findings No contracture. Good bone quality. Standard resections. Description of Procedure The patient was brought to the operating room. A general anesthetic was administered. The leg was prepped and draped in the usual sterile fashion. The limb was elevated and the tourniquet inflated to 300 mmHg during initial exposure, and cementation. A longitudinal incision was created along the medial border of the patella and patellar tendon, and a trivector approach to the knee was performed. A mild medial release was taken. The knee was then flexed. The osteophytes were carefully removed. The intramedullary guide was placed in the femoral canal. The distal femoral resection was then taken with the oscillating saw. The collateral ligaments were carefully protected. The tibia was carefully exposed. The jig was applied, and the proximal tibia was resected according to preoperative plan. The knee was balanced in extension. Appropriate releases were taken where needed. The anterior cruciate ligament and meniscal remnants were removed. The posterior cruciate ligament was preserved. The patella was measured. Patellar resection was carried out with the oscillating saw. The lug holes drilled. The femur was sized and rotation assessed using a combination of gap balancing, posterior referencing, and the AP axis. The 4 in 1 cutting block was used to finish the femoral cuts after equal gaps were assured. The osteophytes were carefully removed from the back of the knee. The knee was copiously irrigated with antibiotic solution periodically throughout the procedure. The meniscal remnants were removed. The spacer block was used to confirm equal flexion and extension gaps. No further releases were needed. The tibia was sized and broached. The bony surfaces were prepared for cementing with pulsatile lavage. The real tibial and femoral and patellar components were cemented into position. Excess cement was carefully removed. Patellar tracking was carefully assessed. No additional releases were required. Dilute sterile Betadine soak performed for three minutes. Copious irrigation then performed. The wound was closed with #1 Vicryl suture, #2, 2-0, and 3-0 barbed suture, followed by Steri-Strips. A sterile bulky dressing was applied. Meticulous hemostasis was maintained throughout the procedure. The bipolar cautery device was used. The pain relieving mixture was injected into the periarticular tissues during the procedure. There were no complications. The patient was extubated and brought to the recovery room in stable condition after the application of sterile dressing with [place] bandage. Physician assistant program manager, April Sheikh PA-C, required for surgery; including patient positioning, draping, tissue retraction, maintaining instrument position, cement removal, wound closure, and dressing placement. Implants Aphria Triathlon knee system, low profile cemented tibia size 3, cemented cruciate retaining femoral component size 3 ,and an 11 mm cruciate stabilizing polyethylene insert. 32mm asymmetric all polyethylene patella component. Estimated Blood Loss -150.0 Drains No Pathology None sent Complications No immediate complications Condition Stable Disposition PACU [facility] Billing Surgery - Charge Forward: Surgery Billing
[2023-07-21] MEDS: ESCITALOPRAM OXALATE 10 MG TABLET 20 MG PO (21:38)
[2023-07-21] MEDS: ATORVASTATIN 10 MG TABLET PO (21:38)
[2023-07-21] MEDS: SENNA/DOCUSATE SODIUM TABLET 2 TAB PO (21:39)
[2023-07-22] VITALS: BP 138/58; PULSE 77; RESP 16; TEMP 36.5; O2SAT 92
[2023-07-22] MEDS: ACETAMINOPHEN 500 MG TABLET 1000 MG PO ×3 (00:29→12:22)
[2023-07-22] MEDS: ceFAZolin 2 GM/D5W 50 ML 2 GM/50 ML BAG IVPB ×2 (00:31→08:51)
[2023-07-22 04:00] VITALS: BP 135/54; PULSE 77; RESP 20; TEMP 36.4; O2SAT 93
[2023-07-22 06:20] LABS: Basophils Percent Auto 0.1 % (0.2-1.2); Eosinophils Percent Auto 0.3 % (0-4.4); Hematocrit 33.4 % (37.0-47.0); Hemoglobin 10.5 g/dL (12.0-15.0); Immature Granulocyte Absolute 0.04 K/mm3 (0.00-0.031); Immature Granulocyte Percent A 0.5 % (0-0.5); Lymphocytes Percent Auto 16.5 % (18.3-44.2); Mean Corpuscular HGB Conc 31.4 g/dl (32-36); Mean Corpuscular Hemoglobin 32.4 pg (26-34); Mean Corpuscular Volume 103.1 fl (80-100); Mean Platelet Volume 11.6 fl (7.4-10.4); Monocytes Absolute Auto 0.8 K/mm3 (0.1-0.6); Monocytes Percent Auto 10.7 % (2.6-8.5); Neutrophils Absolute Auto 5.2 K/mm3 (1.3-6.7); Neutrophils Percent Auto 71.9 % (45.5-73.1); Platelet Count Result 120 k/mm3 (150-375); Red Blood Count 3.24 M/mm3 (4.2-5.4); Red Cell Distribution Width 12.8 % (11.5-14.5); White Blood Count 7.3 K/mm3 (4.5-10.0)
[2023-07-22 06:28] LABS: Anion Gap 4 mmol/L (8-16); Blood Urea Nitrogen 28 mg/dL (7-17); Calcium 8.3 mg/dL (8.4-10.2); Carbon Dioxide 33 mmol/L (22-30); Chloride 104 mmol/L (98-107); Estimated CRCL calculation 41 ml/min; Estimated Glomerular Filt Rate 60; Glucose 105 mg/dL (65-110); Potassium 4.7 mmol/L (3.4-5.0); Sodium 141 mmol/L (137-145)
[2023-07-22 07:45] VITALS: BP 139/55; PULSE 73; RESP 16; TEMP 36.3; O2SAT 94
--- NOTE | 2023-07-22 08:25 | PM.DS ---
DS: Admitting Diagnosis Discharge Date 07/22/23 Admitting Diagnosis OA knee Left DS: Discharge Diagnosis Discharge Diagnosis (1) Status post total left knee replacement: Code(s): Z96.652 - Presence of left artificial knee joint Status: Acute Assessment and Plan: Postop day 1: Left total knee arthroplasty. Patient tolerated procedure well. No complications. Pain manageable with pain medication. No numbness or tingling. We had a lengthy discussion regarding postoperative wound care, limitations, expectations, and exercises. Patient shows good understanding. She has had initial physical therapy and is tolerating it well. DVT prophylaxis: 81 mg baby aspirin b.i.d. for 14 days. Pain medication: Percocet. Prednisone. Patient has followup appointment with Dr. Rodriguez in 3 weeks. DS: Summary Hospital Course Reason for hospitalization: Total knee arthroplasty Hospital Course: Patient tolerated procedure well. Has had initial PT/OT. Status at Discharge Functional status at discharge: uses cane/walker Overall status at discharge: patient is progressing back to baseline Time Spent with Patient Time attestation: Total time spent providing and/or coordinating discharge services: Exam Narrative: 82-year-old overweight female. Resting comfortably in chair. Alert and oriented x3. No acute distress. Wearing compression socks bilaterally. Dressing dry and intact without drainage. Moderate swelling. No ecchymosis. No erythema. No hematoma. Range of motion limited due to pain. Calf nontender. Neurologic status intact. No varicosities. Distal pulses palpable. DS: Data Data Completed and Pending Labs on day of discharge: Labs from last 24 hours 07/22/23 07/21/23 07/21/23 05:38 06:47 06:47 WBC 7.3 RBC 3.24 L Hgb 10.5 L Hct 33.4 L MCV 103.1 H MCH 32.4 MCHC 31.4 L RDW 12.8 Plt Count 120 L MPV 11.6 H Immature Gran % (Auto) 0.5 Neut % (Auto) 71.9 Lymph % (Auto) 16.5 L [place] % (Auto) 10.7 H Eos % (Auto) 0.3 Baso % (Auto) 0.1 L Lymph # (Auto) 1.20 [place] # (Auto) 0.8 H Eos # (Auto) 0.0 Baso # (Auto) 0.0 Abs Immat Gran (auto) 0.04 H Absolute Neuts (auto) 5.2 Absolute Nucleated RBC 0.0 Nucleated RBC % 0.0 Sodium 141 Potassium 4.7 Chloride 104 Carbon Dioxide 33 H Anion Gap 4 L BUN 28 H D Creatinine 0.90 Estim Creat Clear Calc 41 Estimated GFR 60 Glucose 105 Calcium 8.3 L Blood Type A Negative Antibody Screen Positive Antibody Identification Anti-D Anti-C Antigen Identification TNP HENRY, IgG Interpret Not Performed HENRY, Poly Interpret Negative HENRY, Complement Interp Not Performed Enhanced Crossmatch See Detail Discharge Plan Discharge Patient Disposition: Home, Self-Care Discharge Instructions: See green instructions sheets Stand Alone Forms: General Discharge Instructions Follow-up/Referrals: April Sheikh PA [Physician [facility] Guide] - Discharge Medications: New prednisone 5 mg tablet 5 mg PO DAILY 21 Days Qty: 21 0RF aspirin 81 mg tablet,delayed release (DR/EC) 81 mg PO BID 14 Days Qty: 28 0RF oxycodone-acetaminophen 5-325 mg tablet 1 - 2 tablet PO Q4-6H MDD 6 PRN (Reason: pain) Qty: 30 0RF Continued metoprolol tartrate 25 mg tablet 75 mg PO QAM losartan 50 mg tablet 50 mg PO BID lamotrigine 200 mg tablet 200 mg PO QAM escitalopram oxalate 20 mg tablet 20 mg PO HS PreserVision AREDS-2 250-90-40-1 mg capsule 1 tablet PO BID latanoprost 0.005 % drops 1 drp EACH EYE HS Rx Instructions: EACH EYE dorzolamide [Trusopt] 2 % drops 1 drp EACH EYE TID Rx Instructions: EACH EYE amlodipine 5 mg tablet 5 tablet PO QAM atorvastatin 10 mg tablet 10 mg PO HS furosemide 20 mg tablet 20 mg PO QAM potassium chloride [Kl
[2023-07-22] MEDS: ASPIRIN 81 MG ENTERIC TABLET PO (08:52)
[2023-07-22] MEDS: POTASSIUM CHLORIDE 10 MEQ ER TABLET PO (08:52)
[2023-07-22] MEDS: lamoTRIgine 100 MG TABLET 200 MG PO (08:52)
[2023-07-22] MEDS: FUROSEMIDE 20 MG TABLET PO (08:53)
[2023-07-22] MEDS: predniSONE 5 MG TABLET PO (08:53)
[2023-07-22] MEDS: LOSARTAN POTASSIUM 50 MG TABLET PO (08:53)
[2023-07-22] MEDS: FAMOTIDINE 20 MG TABLET PO (08:53)
[2023-07-22 11:53] VITALS: BP 157/59; PULSE 73; RESP 20; TEMP 36.5; O2SAT 92
[2023-07-22 12:21] VITALS: PULSE 92
[2023-07-22] MEDS: METOPROLOL SUCCINATE EXT REL 25 MG TABCR 75 MG PO (12:21)
[2023-07-22] MEDS: amLODIPine BESYLATE 5 MG TABLET 25 MG PO (12:21)
--- NOTE | 2023-07-22 12:34 | WPDANESPN ---
Anes - Prog Note Post-Op Date/Time: 07/22/23 12:34 Cardiovascular status: normal Respiratory status: normal Airway patency: baseline Mental status: baseline Post-Op hydration status: normal Vital Signs: Last Vital Signs Temp 36.5 C 07/22/23 11:53 Pulse 92 07/22/23 12:21 Resp 20 07/22/23 11:53 BP 157/59 H 07/22/23 11:53 Pulse Ox 92 07/22/23 11:53 O2 Del Method Room Air 07/22/23 08:00 O2 Flow Rate 2 07/21/23 11:30 Pain Score (VAS): 04/23 I/O: Intake & Output 07/21/23 07/22/23 07/22/23 23:59 07:59 15:59 Intake Total 450 300 240 Output Total 500 400 Balance -50 -100 240 Laboratory Tests 07/22/23 05:38 07/22/23 05:38 07/22/23 05:38 WBC 7.3 RBC 3.24 L Hgb 10.5 L Hct 33.4 L MCV 103.1 H MCH 32.4 MCHC 31.4 L RDW 12.8 Plt Count 120 L MPV 11.6 H Immature Gran % (Auto) 0.5 Neut % (Auto) 71.9 Lymph % (Auto) 16.5 L [place] % (Auto) 10.7 H Eos % (Auto) 0.3 Baso % (Auto) 0.1 L Lymph # (Auto) 1.20 [place] # (Auto) 0.8 H Eos # (Auto) 0.0 Baso # (Auto) 0.0 Abs Immat Gran (auto) 0.04 H Absolute Neuts (auto) 5.2 Absolute Nucleated RBC 0.0 Nucleated RBC % 0.0 Sodium 141 Potassium 4.7 Chloride 104 Carbon Dioxide 33 H Anion Gap 4 L BUN 28 H D Creatinine 0.90 Estim Creat Clear Calc 41 Estimated GFR 60 Glucose 105 Calcium 8.3 L Post-procedural complaints: none Patient Feedback: Patient satisfied with anesthetic care.
== END 2023-07-22 14:25 | disposition home or self-care (01) ==
LOC: ANHSURGERY 07:22 → ANH3MEDSUR 11:13
PROVIDERS: Physician Assistant Surgical; PCP Family Medicine; Visit Provider Orthopaedic Surgery
PROC: (CPT 27447; principal; 2023-07-21 07:30)
DX: M17.12 Unilateral primary osteoarthritis, left knee (principal); G89.18 Other acute postprocedural pain; I10 Essential (primary) hypertension; E78.5 Hyperlipidemia, unspecified; G47.33 Obstructive sleep apnea (adult) (pediatric); Z85.3 Personal history of malignant neoplasm of breast; F31.9 Bipolar disorder, unspecified; Z87.891 Personal history of nicotine dependence; E66.9 Obesity, unspecified; Z68.30 Body mass index [BMI] 30.0-30.9, adult
CPT/HCPCS: 27447; 64447; 36415; 73560; 80048; 80307; 82040; 83036; 85025; 86850; 86880; 86900; 86901; 86902; 86922; 87081; 97110; 97116; 97161; 97165; 97530; 97535; A9270; C1713; C1776; J0171; J0690; J1100; J1170; J1885; J2250; J2270; J2405; J2704; J2795; J3010; J7120; J7512

== ENCOUNTER 2024-07-31 16:01 | Outpatient (CLI) | payer MEDICARE, SELFPAY ==
--- NOTE | ~2024-07-31 | XR_ITS ---
EXAM: XR knee LT 3V DATE: 07/31/2024 16:20 HISTORY: Z96.652 - Presence of left artificial knee joint . COMPARISON: 07/21/2023. FINDINGS: Decreased mineralization. No fracture or dislocation. No lytic or blastic lesion. Status p ost left total knee arthroplasty. No hardware fracture or perihardware lucency. No erosion or periost eal change. Large volume joint fluid. IMPRESSION: Osteopenia. No acute osseous finding in the left knee. Uncomplicated appearing left total knee arthroplasty hardware. Large knee joint effusion. Reviewed, dictated and finalized at location K. IMPRESSION: Osteopenia. No acute osseous finding in the left knee. Uncomplicate d appearing left total knee arthroplasty hardware. Large knee joint effusion.
== END 2024-07-31 16:02 | disposition home or self-care (01) ==
LOC: ANHIMG 16:06
PROVIDERS: PCP Family Medicine; Visit Provider Orthopaedic Surgery
DX: M85.88 Other specified disorders of bone density and structure, other site (principal); M25.462 Effusion, left knee; Z96.652 Presence of left artificial knee joint
CPT/HCPCS: 73562

== ENCOUNTER 2024-12-05 14:34 | Outpatient (CLI) | payer MEDICARE, SELFPAY ==
--- NOTE | ~2024-12-05 | XR_ITS ---
HISTORY: S92.355A - Nondisplaced fracture of fifth metatarsal bone... COMPARISON: None TECHNIQUE: 3 views of the left foot were performed FINDINGS: No acute fracture or dislocation is appreciated. Moderate degenerative disease is noted. Subacute nondisplaced fracture of the base of the fifth metatarsal is identified, with callus formati on. Moderate calcaneal spur is noted. Ossification of the insertion of the Achilles tendon is noted. Increased density within the visualized bones for which a systemic process is suspected. No significant soft tissue swelling is present. IMPRESSION: Subacute nondisplaced fracture of the base of the fifth metatarsal with callus formation. Reviewed, dictated and finalized at location A. 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
--- OUTSIDE RECORDS SUMMARY | 2024-12-07 02:17 | XMS_ITS | Encounter Summary ---
Author Organization [facility] Address [address] [place] [address]. [place] [address] [place] [address] Care Team Providers Care Sustainability Purchasing Agent Name Role Phone Zack Sweeney MD Primary Care Provider Chi Earl MD Unavailable [phone] Reason for Visit * Reason Onset Date Comments Information 12/05/2024 Encounter Details Date Type Department Care Team (Late st Contact Info) Description 12/05/2024 Telephone [facility] [address] [place] [address] Zack Sweeney MD [address] [place] [address] Information Social History Tobacco Use Types Packs/Day Years Used Date Smoking Tobacco: Former Cigarettes 1 20 0 11/14/1959 - 11/14/1979 Passive Smoke Exposure: Past Smokeless Tobacco: Never Comments:None Alcohol Use Standard Drinks/Week Comments Yes 3.3 (1 standard drink = 0.6 oz p ure alcohol) Social drinker Humiliation, Afraid, Rape, and Kick questionnair e Answer Date Recorded Within the last year, have y ou been afraid of your partner or ex-partner? No 06/03/2023 Within the last year, have y ou been humiliated or emotionally abused in other ways by your partner or ex-partner? No Within the last year, have y ou been kicked, hit, slapped, or otherwise physically hurt by your partner or ex-partner? No 06/03/2023 Within the last year, have y ou been raped or forced to have any kind of sexual activity by your partner or ex-partner? No 06/03/2023 Social Connection and Isolation Panel [NHANES] A nswer Date Recorded In a typical week, how many times do you talk on the phone with family, friends, or neighbors? Twice a week 06/03/20 How often do you get togethe r with friends or relatives? Three times a week 06/03/2023 How often do you attend chur ch or latter-day services? Never 06/03/2023 Do you belong to any clubs o r organizations such as scientology groups, unions, fraternal or athletic groups, or school groups? Yes 06/03/2023 How often do you attend meet ings of the clubs or organizations you belong to? 1 to 4 times per year 06/03/2023 Are you , , di vorced, , never , or living with a partner? Living with partner 06/03/2023 AUDIT-C Answer Date Recorded Q1: How often do you have a drink containing alc ohol? Monthly or less 06/03/2023 Q2: How many drinks containi ng alcohol do you have on a typical day when you are drinking? 1 or 2 06/03/2023 Q3: How often do you have si x or more drinks on one occasion? Never 06/03/2023 Overall Financial Resource Strain (CARDIA) Answe r Date Recorded How hard is it for you to pa y for the very basics like food, housing, medical care, and heating? Not hard at all 06/03/2023 PHQ-2 Answer Date Recorded Patient Health Questionnaire-2 Score 0 08/21/2024 [facility] - Occupational Stress Questionnaire Answer Date Recorded Do you feel stress - tense, restless, nervous, or anxious, or unable to sleep at night because your mind is troubled all the time - these days? Not at all 06/03/2023 Exercise Vital Sign Answer Date Recorde d On average, how many days pe r week do you engage in moderate to strenuous exercise (like a brisk walk)? 0 days 06/03/2023 On average, how many minutes do you engage in exercise at this level? 0 min 06/03/2023 Hunger Vital Sign Answer Date Recorded Within the past 12 months, y ou worried that your food would run out before you got the money to buy more. Never true 06/03/20 23 Within the past 12 months, t he food you bought just didn't last and you didn't have money to get more. Never true 06/03/2023 PRAPARE - Transportation Answer Date Re corded In the past 12 months, has l ack of transportation kept you from medical appointments or from getting medications? No 05/15 In the past 12 months, has l ack of transportation kept you from meetings, work, or from getting things needed for daily living? No 06/03/2023 Housing Stability Vital Sign Answer Branodn e Recorded In the last 12 months, was t here a time when you were not able to pay the mortgage or rent on time? No 06/03/2023 In the last 12 months, how many places have you lived? 1 06/03/2023 In the last 12 months, was t here a time when you did not have a steady place to sleep or slept in a fdc (including now)? 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 Answer Date of Assessment Author Status No 06/03/2023 6:13 AM Coy Silveira RN Active * Do you have serious difficulty walking or climbing stairs? Answer Date of Assessment Author Status No 06/03/2023 6:13 AM Coy Silveira RN Active * Do you have difficulty dressing or bathing? Answer Date of Assessment Author Status No 06/03/2023 6:13 AM Coy Silveira RN Active * Because of a physical, mental, or emotional condition, do you have difficulty doing errands alone such as visiting a doctor's office or shopping? Answer Date of Assessment Author Status No 06/03/2023 6:13 AM Coy Silveira RN Active documented as of this encounter Mental Status * Because of a physical, mental, or emotional condition, do you have serious difficulty concentrating, remembering, or making decisions? Answer Entry Date Author Status No 06/03/2023 6:13 AM Coy Silveira RN Active documented in this encounter Progress Notes * Loren Kennedy RN - 12/05/2024 4:23 PM CST Addressed via another task EXTINGUISHER INSPECTOR * Cyndi Campuzano - 12/05/2024 3:[address] Rodriguez's office called to let Dr. Sweeney know pt needs an US to rule out DVT's in her leg. Person on the phone asked for our fax number. Informed that our outpatient registration closes at 5 and she would not be back from [place] in time to have it done today. Informed they would need to have her go somewhere local there to have it done. EXTINGUISHER INSPECTOR documented in this encounter Plan of Treatment Upcoming Encounters Date Type Department Care Team (Late st Contact Info) Description 02/07/2025 1:00 PM CDT Office Visit [facility] [address] [place] [address] Zack Sweeney MD [address] [place] [address] 02/22/2025 11:00 AM [place] [address] [place] [address] Georges Gandhi MD [address] [facility] [address] [place] [address] 02/28/2025 10:15 AM CDT [facility] [place] [address] [place] [address] Georges Gandhi MD [address] [facility] [address] [place] [address] 03/19/2025 10:00 AM CDT Appointment [facility] [address] [place] [address] Chi Earl MD [address] [facility]. [place] [address] [place] [address] 04/03/2025 11:30 AM CDT Office Visit [facility] [address] [place] [id number] Chi Earl MD [address] [facility]. [address] [id number] documented as of this encounter Goals Goal Patient Goal Type Associated Problems Recent Progress Patient-Stated? Author Establish Regular Follow-Ups with PCP Lifestyle On track( 023 3:37 PM CDT) No Marylou Carter, RN Note: 06/08/23: PCP appt on 06/14/23 and patient is aware of this appt. Moving forward, please see body of note for patient status and progress towards the goal. Establish Plan for Symptom Monitoring Lifestyle On track( 023 3:37 PM CDT) No Marylou Carter, RN Note: 06/08/23: Moving forward, please see body of note for patient status and progress towards the goal. documented as of this encounter Visit Diagnoses Not on filedocumented in this encounter Additional Health Concerns Assessment Noted Time PHQ-9 Depression Total Score: 14 023 12:45 PM CDT documented as of this encounter Care Teams Sustainability Purchasing Agent Relationship Specialty Start Date End Date Zack Sweeney MD PCP - General FAMILY PRACTICE 04/14/16 Chi Earl MD [facility]. [address] [address] [place] [employer] Developer CARDIOVASCULAR DISEASE 04/14/16 documented as of this encounter
--- OUTSIDE RECORDS SUMMARY | 2024-12-07 02:17 | XMS_ITS | Patient Health Summary ---
Author Organization [facility] Address [address] [place] [address] Care Team Providers Care Die Developer Name Role Phone Zack Sweeney MD Primary Care Provider [phone] Note from [facility],non-owned Affiliates and Associated Physician Practices is amultiple site organization consisting of ambulatory clinics and hospital sitesin [place], [place]. This disclosure is being madepursuant to the Care Everywhere program and may not contain all information available regarding this patient. Last updated 18.[facility] Allergies No known active allergies Medications * Be aware that medications may not be up to date on this document. Alwaysverify current medications with the patient. * escitalopram (LEXAPRO) 20 MG tablet(Started 04/11/2018) Take 20 mg by mouth 2 times daily * lamoTRIgine (LAMICTAL) 200 MG tablet(Started 06/15/2018) Take 200 mg by mouth once daily as needed * losartan (COZAAR) 50 MG tablet(Started 07/21/2018) Take 50 mg by mouth once daily * metoprolol succinate XL 24hr (TOPROL XL) 25 MG tablet(Started 07/29/2018) Take 75 mg by mouth once daily * simvastatin (ZOCOR) 20 MG tablet(Started 07/21/2018) Take 20 mg by mouth once daily * BABY ASPIRIN PO Take 81 mg by mouth * hydroCHLOROthiazide (HYDRODIURIL) 25 MG tablet(Started 05/14/2019) Take 25 mg by mouth once daily 1 refill left * latanoprost (XALATAN) 0.005 % ophthalmic solution(Started 05/25/2019) Instill 2.5 mL into both eyes once daily 3 refills left * meloxicam (MOBIC) 7.5 MG tablet(Started 07/09/2019) Take 7.5 mg by mouth once daily 2 refills left Social History Tobacco Use Types Packs/Day Years Used Date Smoking Tobacco: Former Smokeless Tobacco: Never Sex and Gender Information Value Date Recorded Sex Assigned at Not on file Gender Identity Not on file Sexual Orientation Not on file Last Filed Vital Signs Vital Sign Reading Time Taken Comments Blood Pressure 130/70 08/06/2019 9:13 AM CDT Pulse - - Temperature - - Respiratory Rate - - Oxygen Saturation - - Inhaled Oxygen Concentration - - Weight 85.9 kg (189 lb 6.4 oz) 08/06/2019 9:13 A M CDT Height 165.1 cm (5' 5 ) 08/06/2019 9:13 AM CDT Body Mass Index 31.52 08/06/2019 9:13 AM CDT Procedures * DERMATOPATHOLOGY(Performed 10/24/2023) * DERMATOPATHOLOGY(Performed 09/29/2023) * MAMMOGRAM(Performed 08/13/2019) * MAMMOGRAM(Performed 08/01/2018) * PAP IG RFLX HPV ASCU(Performed 04/30/2013) * LAB HISTORICAL RESULTS-ONBASE(Performed 04/24/2012) * PATHOLOGY/GENETICS HISTORICAL-ONBASE(Performed 12/27/2011) * LAB HISTORICAL RESULTS-ONBASE(Performed 12/20/2011) * LAB HISTORICAL RESULTS-ONBASE(Performed 12/20/2011) * LAB HISTORICAL RESULTS-ONBASE(Performed 08/26/2011) * LAB HISTORICAL RESULTS-ONBASE(Performed 10/28/2010) * LAB HISTORICAL RESULTS-ONBASE(Performed 07/03/2010) * LAB HISTORICAL RESULTS-ONBASE(Performed 03/02/2010) * LAB HISTORICAL RESULTS-ONBASE(Performed 09/22/2009) * LAB HISTORICAL RESULTS-ONBASE(Performed 05/06/2009) * LAB HISTORICAL RESULTS-ONBASE(Performed 01/13/2009) * LAB HISTORICAL RESULTS-ONBASE(Performed 01/03/2009) * LAB HISTORICAL RESULTS-ONBASE(Performed 07/23/2008) * PATHOLOGY/GENETICS HISTORICAL-ONBASE(Performed 07/20/2007) * PATHOLOGY/GENETICS HISTORICAL-ONBASE(Performed 04/29/2003) * CYTOLOGY NON-SCRIPT WRITER PANEL(Performed 04/17/2003) * FROZEN SECTION(Performed 04/16/2003) * PATHOLOGY/GENETICS HISTORICAL-ONBASE(Performed 04/16/2003) Results * DERMATOPATHOLOGY (10/24/2023 12:00 AM INDUSTRIAL RELATIONS SPECIALIST) Only the most recent of2 resultswithin the time period is included. Case Report Dermatopathology Report ? Case: [id number] ? Authorizing Provider: ??Román Bridges MD ?Collected: ? 10/24/2023 12:00 AM ? Ordering Location: ? [facility] ? Received: ?10/25/2023 06:24 AM ? Pathologist: ? Debbie Beckman, ? MD ? Specimen: ?Skin, right medial max ? 3 12:51 PM INDUSTRIAL RELATIONS SPECIALIST DERMATOPATHOLOGY LABORATORY Final Diagnosis Specimen A. SKIN, right medial max: DERMAL SCAR RESIDUAL BASAL CELL CARCINOMA NOT IDENTIFIED (L90.5) CHRONIC PERIFOLLICULITIS (L73.8) 3 12:51 PM [facility] Clinical History BCC Bx Site. Check Margins. 3 12:51 PM [facility] Gross Description Specimen A: Received is one formalin filled container labeled with the patient's name and designated right medial max. The specimen consists of a curettage and desiccation biopsy measuring 6x4x1 mm. Jar 0. 3 12:51 PM [facility] Microscopic Description Specimen A. SKIN, right medial max: There are fibroblasts and collagen bundles oriented parallel to the skin surface. There are elongated blood vessels, some of which are oriented perpendicular to the skin surface. No basal cell carcinoma is identified. There is also a perifollicular lymphohistiocytic infiltrate. 3 12:51 PM [facility] Disclaimer An external and internal positive and negative controls are appropriate for the histochemical, immunohistochemical and immunofluorescence stain(s) in this case (if any), except where stated explicitly. The performance characteristics of the stain(s) cited in this report were developed and its performance characteristic determined by the Dermatopathology Laboratory at [facility], directed by Dr. Tiny Avendaño. These tests need not be, and therefore are not, approved by the [place] Food and Drug Administration. The tests are used for clinical purposes. Billing Codes Specimen Charges Stain Charges 20324 1 3 12:51 PM [facility] Embedded Images 3 12:51 PM [facility] Pathology/Cytolog y TISSUE SPECIMEN FROM SKIN / Unknown 10/24/2023 10/25/2023 6:24 AM INDUSTRIAL RELATIONS SPECIALIST Román Bridges MD LAB - PATHOLOGY/CYTO LOGY ORDERABLES DERMATOPATHOLOGY LABORATORY [facility] Department of Dermatology [facility] [address] [facility] [phone] * MAMMOGRAM (08/13/2019) Only the most recent of2 resultswithin the time period is included. Anatomical Region Laterality Modality Other Historical Provider MD SCANNING ONLY * PAP IG RFLX HPV ASCU (04/30/2013) ENTIRE VAGINA / Unknown 04/30/2013 Narrative [facility] - 05/02/2013 4:16 PM CDT Fani Posadas MD LAB - PATHOLOGY/CYTO LOGY ORDERABLES Performing Organization Address [facility] Co de Phone Number [address] * LAB HISTORICAL RESULTS-ONBASE (04/24/2012) Only the most recent of12 resultswithin the time period is included. 04/24/2012 Historical Provider LAB - CHEMISTRY O RDERABLES Performing Organization Address [facility] Co de Phone Number [address] * PATHOLOGY/GENETICS HISTORICAL-ONBASE (12/27/2011) Only the most recent of4 resultswithin the time period is included. 12/27/2011 Historical Provider LAB - CHEMISTRY O RDERAEPIFANIO Performing Organization Address [facility] de Phone Number [address] * CYTOLOGY NON-SCRIPT WRITER PANEL (04/17/2003 10:18 AM CDT) Result CASE NUMBER [id number] Comment: ORDERING PHYSICIAN ??TIFFANIE POSADAS SPECIMEN TYPE ?Pelvic Washings Date ? 04/17/2003 Physician ?[place] Specimen Adequacy ?Satisfactory for Evaluation Cell Pathology ? Abundant benign mesothelial cells' *Diagnosis ? Negative for malignant or atypical cells. Snomed. ?04/17/2003 1451 <1> Pathologist ?Maverick Morrell M.D. CPT code ? 69164. MISCELLANEOUS SAMPLES / Unknown 04/17/2003 10:18 AM CDT 04/17/2003 10:18 AM CDT Historical Provider MD LAB - PATHOLOGY/C YTOLOGY ORDERABLES * FROZEN SECTION (04/16/2003 3:13 PM CDT) Result CASE NUMBER [id number] Comment: ORDERING PHYSICIAN ??TIFFANIE POSADAS SPECIMEN TYPE ?Tissue-vaginal polyp Date ? 04/16/2003 Physician ?Tiny Posadas Gross Description ? The specimen is received fresh labeled with the patient's name and identified as vaginal polyp . ??The specimen is a fragment of whitish tissue measuring 3 x 2 x 1.5 cm. ??The external surface is smooth and glistening. ??The specimen is serially sectioned to reveal a cyst filled with clear fluid. ??Splash Line Operator sections are submitted for frozen section examination in cassette FSA ??the rest of the specimen is entirely submitted in cassette B. TK/bk The next specimen is identified as left tube and ovary and consists of a single cyst of dilated left ovary measuring 27 x 25 x 15 cm. with attached fragment of fallopian tube measuring 2.5 x 0.5 cm. ??The total weight of the specimen is 2,550 grams. ??The external surface of the ovary is slightly variegated in color but smooth and glistening in most areas. ??The specimen is sectioned to reveal mucus in consistency fluid mucus. ??The cut surface is multiloculated, cystically dilated cavity filled with mucus with multiple areas that appear whitish, firm in consistency. ??Splash Line Operator sections are submitted for frozen section examination in cassettes FSA and D. ??Splash Line Operator sections from different areas of the ovary are submitted in cassettes E through K ?? cassette L, fallopian tube. TK/bk The next container is identified as omentum and consists of a single fragment of adipose tissue measuring 39 x 10 x 0.5 cm. ??On sectioning, it is grossly unremarkable. ??Splash Line Operator sections are submitted in cassettes M and N. The next container is identified as sigmoid appendage and consists of an irregularly-shaped fragment of adipose tissue measuring 5 x 1.5 x 2.5 cm. ??Splash Line Operator sections are submitted in cassette O. The next container is identified as pelvic washings and consists of bright reddish, semi-translucent fluid measuring approximately 30 ml. ?? The specimen is entirely submitted for cell block preparation in cassette P. The next container is identified as left pelvic wall adhesion and consists of an irregularly-shaped fragment of brownish soft tissue measuring 1.5 x 1 x 0.3 cm. ??The entire specimen is submitted in a single cassette labeled Q. The next container is identified as cul-de-sac, biopsy and consists of two fragments of soft kirkpatrick tissue, one measuring 0.2 x less than 0.1 x less than 0.1 cm., the second measuring 0.5 x 0.2 x 0.2 cm. ??The entire specimen is submitted in a single cassette labeled R. The next container is identified as right pelvic lymph node and consists of a fragment of fibroadipose tissue measuring 6 x 5 x 1 cm. ?? Grossly there are 5 lymph nodes present within the specimen. ??The lymph nodes are entirely submitted in cassette S, single sectioned lymph node ??cassette T, single serially sectioned lymph node ??cassette U, single serially sectioned lymph node ??cassette V, two lymph nodes. The next container is identified as right common iliac and consists of a fragment of fibroadipose tissue measuring 3 x 2 x 0.5 cm. ??Grossly there are 4 lymph nodes present within the specimen. ??They are entirely submitted in cassette W, single serially sectioned lymph node ??cassette X, three lymph nodes. The next container is identified as uterus, cervix, right tube and ovary . ??The specimen consists of a uterus measuring 5 x 4.5 x 3 cm. with attached cervix measuring 3.5 x 3 x 2.5 cm. ??The total weight of the uterus, including the cervix is 80 grams. ??The serosal surface of the uterus appears partially smooth, partially shaggy with a few outpouching fibroid nodules. ??The cervix has an external os measuring 0.7 cm. in diameter. ??The uterine cavity is elongated, slit-like, measuring 3 x 1 cm. ??It has a pinkish internal lining. ??The thickness of the myometrium is 2 cm. ??The cervix has multiple cysts varying in size from 0.2 x 0.2 cm. to 1 x 0.8 x 0.8 cm. filled with mucus. ??Serial sectioning through the specimen doesn't reveal any additional fibroid nodules. ??Splash Line Operator sections are submitted as follows ??cassettes Y and Z, cervix, anterior/posterior ??cassettes AA, BB, endomyometrium, anterior/posterior ??cassette CC, fibroid nodules. ?? The right ovary measures 2.5 x 2 x 1 cm. ??The right fallopian tube measures 5 x 0.7 cm. ??Both are grossly unremarkable. ??Splash Line Operator sections are submitted in cassette DD. The next container is identified as left pelvic lymph node and consists of several fragments of fibroadipose tissue measuring in aggregate 5.5 x 5 x 1.5 cm. ??Splash Line Operator sections are submitted as follows ??cassette EE, three lymph nodes, the bigger one is inked black and bisected ??cassette FF, single serially sectioned lymph node ?? cassette GG, two lymph nodes, the bigger one is inked black, serially sectioned ??cassette HH, single serially sectioned lymph node ??cassette II, JJ, single serially sectioned lymph node. The next container is identified as left common iliac lymph node and consists of a fragment of soft tissue measuring 2 x 1.3 x 0.5 cm. ?? There is a single lymph node identified within the specimen. ??It is serially sectioned and entirely submitted in cassette KK. ?? The next container is identified as sigmoid adhesion and consists of two fragments of lobulated adipose tissue, one measuring 4 x 2.5 x 0.3 cm., the second measuring 5 x 3 x 0.3 cm. ??Splash Line Operator sections are submitted in cassette LL. ?? The next container is identified as right gutter biopsy and consists of two irregularly-shaped, equally-sized fragments of soft kirkpatrick tissue, each measuring 0.8 x 0.3 x 0.3 cm. ??The entire specimen is submitted in a single cassette labeled MM. The next container is identified as left gutter biopsy and consists of two fragments of soft kirkpatrick tissue, one measuring 0.6 x 0.3 x 0.3 cm., the second measuring 0.5 x 0.2 x 0.2 cm. ??The entire specimen is submitted in a single cassette labeled NN. ?? The next container is identified as omentum and consists of a single brownish fragment of soft tissue measuring 1.5 x 1 x 0.3 cm. ??It is bisected and entirely submitted in cassette OO. The next container is identified as appendix and consists of an appendix measuring 6.5 x 0.3 cm. with a mesoappendix measuring 6 x 2 cm. ??The serosal surface of the appendix is smooth, glistening and kirkpatrick in color. ??On sectioning, the appendix is grossly unremarkable. ?? Splash Line Operator sections are submitted in cassette PP. The next container is identified as right periaortic lymph nodes and consists of a fragment of fibroadipose tissue measuring 2.5 x 2.5 x 0.5 cm. ??There are three lymph nodes present within the specimen. ?? Splash Line Operator sections are submitted as follow ??cassette QQ, two bisected lymph nodes, the smaller one is inked black ??cassette RR, single serially sectioned lymph node. The next container is identified as left periaortic lymph node and consists of a fragment of soft tissue measuring 2.3 x 1 x 0.3 cm. ??The specimen consists of two lymph nodes, entirely submitted in cassette SS. TK/bk Microscopic Exam ? Permanent sections confirm the frozen section diagnoses. 1. ??Sections show a fragment of squamous cell lined mucosa. ??Submucosal benign cyst is identified which is lined by a single layer of endocervical type mucinous cells. ??There is no evidence of atypia or malignancy. ?? 2. ??Sections of the fallopian tube are benign with no evidence of malignancy. 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 ??The tumor shows both intestinal and endocervical differentiation with majority of tumors showing endocervical differentiation with scattered goblet cells present. ??The tumor shows large glandular structures with numerous papillary projections into the glandular lumina. ??The tumor cells are columnar with a moderate amount of cytoplasm, large, irregular dense to vesicular nuclei with moderate nuclear hyperchromasia and pleomorphism, and brisk mitotic activity. ??Splash Line Operator sections of the tumor were reviewed with Drs Rudy and Tisha, who concur with the diagnosis. 3, 4. ??Sections show benign lobulated adipose tissue. ??No malignancy is seen. 5. ??Sections of the cell block show scattered mesothelial cells and blood. ??There is no evidence of malignancy. 6,7 ??Sections show benign fibroadipose tissue. ??No malignancy is seen. 8,9. ??Specimen #8 has five benign lymph nodes and specimen #9 has four benign lymph nodes. ??No metastatic carcinoma is seen. 10. ??Sections of the cervical tissue shows focal mild chronic inflammation with squamous metaplasia. ??No dysplasia or malignancy is seen. ??Sections of the endomyometrium show inactive endometrium and benign myometrium. ??Sections of the fibroids show proliferation of benign smooth muscle cells in fascicles. ??Sections of the fallopian tube and ovary are benign with no evidence of malignancy. 11, 12. ??Specimen #11 shows eight benign lymph nodes and specimen #12 shows five benign lymph nodes. ??There is no evidence of metastatic carcinoma. 13-16 ??Sections show benign fibroadipose tissue. ??There is no evidence of malignancy. 17. ??Sections show a benign unremarkable appendix. ??No atypia or malignancy is seen. 18 and 19. ??Specimen #18 shows three benign lymph nodes and specimen #19 shows two benign lymph nodes. ??There is no evidence of metastatic carcinoma. MC/bk 1 Diagnosis ? FROZEN SECTION DIAGNOSIS ?I. ??Vaginal polyp, frozen section diagnosis ?FSA - mucinous cyst, benign in a squamous epithelial lined ?fragment. ? (SR/GM/RT). ? II. 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 ??(SR/GM/RT). FINAL DIAGNOSIS ?I. ??Vaginal polyp, resection ?A. ??Benign mucinous cyst. ? II. ??Left fallopian tube and ovary, salpingo-oophorectomy ?A. 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 ?B. ??TNM stage, T1b, N0, MX. ?C. ??Benign fallopian tube tissue. ?III. ??Omentum, omentectomy ?A. ??Negative for malignancy. ? IV. ??Sigmoid appendage, resection ?A. ??Negative for malignancy. ?V. ??Pelvic washings, cell block ?A. ??Negative for malignancy. ? . ??Left pelvic wall adhesion, biopsy ?A. ??Negative for malignancy. ?VII. ??Cul-de-sac, biopsy ?A. ??Negative for malignancy. ? VIII. ??Pelvic lymph node, right, biopsy ?A. ??Five benign lymph nodes, negative for metastatic ?carcinoma (0/5). ? IX. ??Common iliac lymph node, right, biopsy ?A. ??Four benign lymph nodes, negative for metastatic ?carcinoma (0/4). ?X. ??Uterus, right fallopian tube and ovary, hysterectomy and ?salpingo-oophorectomy ?A. ??Inactive endometrium. ?B. ??Mild chronic cervicitis. ?C. ??Leiomyomata. ?D. ??Benign ovarian and fallopian tube tissue. ? XI. ??Pelvic lymph node, left, biopsy ?A. ??Eight benign lymph nodes, negative for metastatic ?carcinoma (0/8). ?XII. ??Common iliac lymph node, left, biopsy ?A. ??One benign lymph node, negative for metastatic ?carcinoma (0/1). ? XIII. ??Sigmoid adhesion, biopsy ?A. ??Negative for malignancy. ?XIV. ??Right gutter, biopsy ?A. ??Negative for malignancy. ? XV. ??Left gutter, biopsy ?A. ??Negative for malignancy. ?XVI. ??Omentum, biopsy ?A. ??Negative for malignancy. ? XVII. ??Appendix, appendectomy ?A. ??Negative for malignancy. ?XVIII. ??Periaortic lymph node, right, biopsy ?A. ??Three benign lymph nodes, negative for metastatic ?carcinoma (0/3). ?XIX. ??Periaortic lymph node, left, biopsy ?A. ??Two benign lymph nodes, negative for metastatic ?carcinoma (0/2). ? Incendiary Powder Mixer ? bk Pathologist ?Teresa Walter M.D. / Jessica Morrell M.D. Snomed. ?04/18/2003 1139 <13> CPT code ? 34812 x2, 00605 x2, 24723 x16, 17567 x2, 74368 x1 MISCELLANEOUS SAMPLES / Unknown 04/16/2003 3:13 PM CDT 04/16/2003 3:13 PM CDT Historical Provider LAB - PATHOLOGY/C YTOLOGY ORDERABLES Care Teams Die Developer Relationship Specialty Start Date End Date Zack Sweeney MD PCP - General 04/21/18
--- OUTSIDE RECORDS SUMMARY | 2024-12-07 02:17 | XMS_ITS | Encounter Summary ---
Author Organization [facility] Address [address] [place] [address] Care Team Providers Care Rural Sociologist Name Role Phone Zack Sweeney MD Primary Care Provider [phone] Encounter Details Date Type Department Care Team (Late st Contact Info) Description 10/24/2023 Lab Requisition [facility] Derm[facility] Lab [address] [place] [address] Román Bridges MD [address] [place] [address] Social History Tobacco Use Types Packs/Day Years Used Date Smoking Tobacco: Former Smokeless Tobacco: Never Sex and Gender Information Value Date Recorded Sex Assigned at Not on file Gender Identity Not on file Sexual Orientation Not on file documented as of this encounter Plan of Treatment Not on file documented as of this encounter Procedures Procedure Name Priority Date/Time Associated Diagnosis Comments DERMATOPATHOLOGY Routine 10/24/2023 12:0 0 AM PROGRAMMING DEVELOPMENT PROJECT MANAGER documented in this encounter Results * DERMATOPATHOLOGY (10/24/2023 12:00 AM PROGRAMMING DEVELOPMENT PROJECT MANAGER) Case Report Dermatopathology Report ? Case: [id number] ? Authorizing Provider: ??Román Bridges MD ?Collected: ? 10/24/2023 12:00 AM ? Ordering Location: ? [facility] ? Received: ?10/25/2023 06:24 AM ? Pathologist: ? Debbie Beckman, ? MD ? Specimen: ?Skin, right medial max ? 3 12:51 PM [facility] Final Diagnosis Specimen A. SKIN, right medial max: DERMAL SCAR RESIDUAL BASAL CELL CARCINOMA NOT IDENTIFIED (L90.5) CHRONIC PERIFOLLICULITIS (L73.8) 3 12:51 PM [facility] Clinical History BCC Bx Site. Check Margins. 3 12:51 PM [facility] Gross Description Specimen A: Received is one formalin filled container labeled with the patient's name and designated right medial max. The specimen consists of a curettage and desiccation biopsy measuring 6x4x1 mm. Jar 0. 3 12:51 PM [facility] Microscopic Description Specimen A. SKIN, right medial max: There are fibroblasts and collagen bundles oriented parallel to the skin surface. There are elongated blood vessels, some of which are oriented perpendicular to the skin surface. No basal cell carcinoma is identified. There is also a perifollicular lymphohistiocytic infiltrate. 3 12:51 PM [facility] Disclaimer An external and internal positive and negative controls are appropriate for the histochemical, immunohistochemical and immunofluorescence stain(s) in this case (if any), except where stated explicitly. The performance characteristics of the stain(s) cited in this report were developed and its performance characteristic determined by the Dermatopathology Laboratory at [facility], directed by Dr. Tiny Avendaño. These tests need not be, and therefore are not, approved by the [place] Food and Drug Administration. The tests are used for clinical purposes. Billing Codes Specimen Charges Stain Charges 86733 1 3 12:51 PM [facility] Embedded Images 3 12:51 PM [facility] Pathology/Cytolog y TISSUE SPECIMEN FROM SKIN / Unknown 10/24/2023 10/25/2023 6:24 AM PROGRAMMING DEVELOPMENT PROJECT MANAGER Román Bridges MD LAB - PATHOLOGY/CYTO [facility] ORDERABLES DERMATOPATHOLOGY LABORATORY [facility] - Department of Dermatology [facility] [address] [place] [address], [address] [phone] documented in this encounter Visit Diagnoses Not on filedocumented in this encounter Care Teams Rural Sociologist Relationship Specialty Start Date End Date Zack Sweeney MD PCP - General 04/21/18 documented as of this encounter
--- OUTSIDE RECORDS SUMMARY | 2024-12-07 02:17 | XMS_ITS | Patient Health Record ---
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 Name Role Phone DL STUBBS Unavailable [phone] Zack Sweeney Unavailable Unavailable Allergies No Known Allergies Reason For Referral No Information Immunizations Vaccine Route Administration Date Status Comme nts Influenza, high dose seasonal Unknown 08/19/2023 Admini stered Vital Signs Height-cm 167.64 cm 03/19/2024 Weight-kg 83.91 kg 03/19/2024 Height 66.00 in 03/19/2024 Weight 185 lbs 03/19/2024 BMI 29.86 kg/m2 03/19/2024 Encounters Encounter Location Date Provider Diagnosis [facility] [address] [place] [address] [id number] 12/03/2024 DL SNOOK Tinea unguium B35.1 ; Pain in right toe(s) M79.674 ; Pain in left toe(s) M79.675 ; Atherosclerosis of [place] arteries of extremities with intermittent claudication, bilateral legs 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 and Type 2 diabetes mellitus with other circulatory complications E11.59 [facility] [address] [place] [address] [id number] 12/26/2023 DL SNJOSE [place] Tinea unguium B35.1 ; Pain in right toe(s) M79.674 ; Pain in left toe(s) M79.675 and Atherosclerosis of [place] arteries of extremities with intermittent claudication, bilateral legs I70.213 [facility] [address] [place] [address] [id number] 03/19/2024 DL SNOOK Tinea unguium B35.1 ; Pain in right toe(s) M79.674 ; Pain in left toe(s) M79.675 and Atherosclerosis of [place] arteries of extremities with intermittent claudication, bilateral legs I70.213 [facility] [place] [address] [place], [place] [phone] 07/23/2024 DL SNOOK Tinea unguium B35.1 ; Pain in right toe(s) M79.674 ; Pain in left toe(s) M79.675 and Atherosclerosis of [place] arteries of extremities with intermittent claudication, bilateral legs I70.213 Assessments Encounter Date Diagnosis (ICD Code) Assessment Notes Treatment Notes Treatment Clinical Notes Section Notes 12/26/2023 Tinea unguium (ICD-10 - B35.1) FUNGAL TOENAILS: Discussed various treatment options for fungal toenails including debridement, topical antifungals, oral antifungals, toenail avulsion, or toenail matrixectomy. NAIL DEBRIDEMENT: Nails 1-5 Bilateral were debrided extensively with nail nippers and emery board, reducing length and girth to pink healthy tissue with any subungual debris and necrotic tissue removed 12/26/2023 Pain in right toe(s) (ICD-10 - M79.674) 03/19/2024 Tinea unguium (ICD-10 - B35.1) FUNGAL TOENAILS: Discussed various treatment options for fungal toenails including debridement, topical antifungals, oral antifungals, toenail avulsion, or toenail matrixectomy. NAIL DEBRIDEMENT: Nails 1-5 Bilateral were debrided extensively with nail nippers and emery board, reducing length and girth to pink healthy tissue with any subungual debris and necrotic tissue removed 03/19/2024 Pain in right toe(s) (ICD-10 - M79.674) 07/23/2024 Tinea unguium (ICD-10 - B35.1) FUNGAL TOENAILS: Discussed various treatment options for fungal toenails including debridement, topical antifungals, oral antifungals, toenail avulsion, or toenail matrixectomy. NAIL DEBRIDEMENT: Nails 1-5 Bilateral were debrided extensively with nail nippers and emery board, reducing length and girth to pink healthy tissue with any subungual debris and necrotic tissue removed 07/23/2024 Pain in right toe(s) (ICD-10 - M79.674) 12/03/2024 Tinea unguium (ICD-10 - B35.1) NAIL DEBRIDEMENT: Nails 1-5 Bilateral were debrided extensively with nail nippers and emery board, reducing length and girth to pink healthy tissue with any subungual debris and necrotic tissue removed 12/03/2024 Pain in right toe(s) (ICD-10 - M79.674) 07/23/2024 Pain in left toe(s) (ICD-10 - M79.675) 03/19/2024 Pain in left toe(s) (ICD-10 - M79.675) 12/26/2023 Pain in left toe(s) (ICD-10 - M79.675) 12/26/2023 Atherosclerosis of [place] arteries of extremities with intermittent claudication, bilateral legs (ICD-10 - I70.213) 03/19/2024 Atherosclerosis of [place] arteries of extremities with intermittent claudication, bilateral legs (ICD-10 - I70.213) 07/23/2024 Atherosclerosis of [place] arteries of extremities with intermittent claudication, bilateral legs (ICD-10 - I70.213) 12/03/2024 Pain in left toe(s) (ICD-10 - M79.675) 12/03/2024 Atherosclerosis of [place] arteries of extremities with intermittent claudication, bilateral legs (ICD-10 - I70.213) 12/03/2024 Type 2 diabetes mellitus with other circulatory complications (ICD-10 - E11.59) Diabetic Foot Care: The patient was educated on diabetes and the lower extremity. The patient was instructed to check his feet daily to report any problems or signs of infection immediately. The patient was provided written information on Diabetic Foot Care as well as the Amputation Prevention Guide. Plan Of Treatment Next Appt Details Provider Name:DL STUBBS, 01:00:00 PM, [address] [facility], [place], [place], [id number], Insurance Providers Payer Name Payer Address Payer Phone Subscriber Number Group Number Insured Name Patient Relationship to Insured Coverage Start Date Coverage End Date [employer] [address] [place] [phone] [id number] EVAN BUSTOS Self - patient is the insured
--- OUTSIDE RECORDS SUMMARY | 2024-12-07 02:17 | XMS_ITS | Clinical Summary ---
Author Organization [facility] Address [facility] [place] [address] [place] [address] Care Team Providers Care Overhead Cleaner Maintainer Name Role Phone Zack Sweeney MD Primary Care Provider [phone] Chi Earl MD Unavailable [phone] Allergies No known active allergies Medications * This document contains information received from the source organization and may not represent a complete record from that organization. Multiple Vitamins-Minerals (PRESERVISION AREDS) Tab Take 1 tablet by mouth 2 (two) times daily. 11/29/19 17 Active dorzolamide 2 % ophthalmic solution Place 1 drop into both eyes 3 (three) times daily. 03/02/20 18 Active latanoprost 0.005 % ophthalmic solution Place 1 drop into both eyes nightly at bedtime. 3 01/17/20 19 Active furosemide (LASIX) 20 MG tablet take 1 tablet by mouth every day 90 tablet 2 06/11/20 24 Active metoprolol succinate ER (TOPROL-XL) 25 MG 24 hr tabletIndications :Hypertension TAKE 3 TABLETS BY MOUTH DAILY 270 tablet 10/04/20 24 Active lamoTRIgine (LAMICTAL) 200 MG tabletIndications :Hypertension TAKE 1 TABLET BY MOUTH EVERY DAY 90 tablet 1 10/05/20 24 Active losartan (COZAAR) 50 MG tabletIndications :Hypertension TAKE 1 TABLET BY MOUTH TWICE A DAY 180 tablet 10/19/20 24 Active atorvastatin (LIPITOR) 20 MG tabletIndications :Mixed hyperlipidemia TAKE 1 TABLET BY MOUTH NIGHTLY AT BEDTIME 90 tablet 1 12/04/19 25 Active escitalopram (LEXAPRO) 20 MG tabletIndications :Anxiety TAKE 1 TABLET BY MOUTH EVERY DAY 90 tablet 1 12/05/19 25 Active amLODIPine (NORVASC) 5 MG tabletIndications :Primary hypertension TAKE 1 TABLET (5 MG TOTAL) BY MOUTH DAILY. 90 tablet 1 12/05/19 25 Active pantoprazole EC (PROTONIX) 40 MG tabletIndications :Duodenal ulcer,Gastrointes tinal hemorrhage associated with duodenal ulcer TAKE 1 TABLET BY MOUTH EVERY DAY 90 tablet 1 12/05/19 25 Active potassium chloride CR (KLOR-CON M10) 10 MEQ tablet Take 1 tablet (10 mEq total) by mouth daily. 90 tablet 1 12/05/19 25 Active atorvastatin (LIPITOR) 20 MG tabletIndications :Mixed hyperlipidemia Take 1 tablet (20 mg total) by mouth nightly at bedtime. 90 tablet 2 03/14/20 24 025 Discontinued escitalopram (LEXAPRO) 20 MG tabletIndications :Anxiety take 1 tablet by mouth every day 90 tablet 2 05/11/20 24 025 Discontinued KLOR-CON M10 10 MEQ tablet take 1 tablet by mouth every day 90 tablet 1 05/11/20 24 025 Discontinued(Re order) amLODIPine (NORVASC) 5 MG tabletIndications :Primary hypertension Take 1 tablet (5 mg total) by mouth daily. 90 tablet 1 07/02/20 24 025 Discontinued pantoprazole EC (PROTONIX) 40 MG tabletIndications :Duodenal ulcer,Gastrointes tinal hemorrhage associated with duodenal ulcer Take 1 tablet (40 mg total) by mouth daily. 90 tablet 1 07/17/20 24 025 Discontinued Active Problems Problem Noted Date Diagnosed Date Acute bronchitis 08/28/2024 Assessment & Plan (08/28/2024 3:56 PM CDT): Cough is much better and almost resolved. Same with nasal congestion and drainage. Continue to finish Z-Serg as ordered. Tylenol as needed. Encourage increase fluids. No need for chest x-ray for now. Clear breath sound is clear. S/P TKR (total knee replacement), left Assessment & Plan (10/04/2023 2:19 PM CORK FLOOR INSTALLER): Patient continues to do well. Ambulating well. Continue exercises learned to PT. Knee pain, left 08/04/2023 Preoperative clearance 06/28/2023 Assessment & Plan (06/28/2023 3:45 PM CDT): Refer patient to pulmonology and cardiology for clearances before stated left total knee replacement July 21. She was already seen by GI and was cleared to undergo stated procedure. Lung nodule 06/14/2023 Assessment & Plan (10/08/2024 1:42 PM CORK FLOOR INSTALLER): Patient CT of the chest without contrast showed stable pulmonary nodules. Patient has follow-up appointment with pulmonology next week. Assessment & Plan (06/06/2024 1:25 PM CDT): Stable. Under the care of pulmonology. Monitoring surveillance. Has a follow-up in July. Assessment & Plan (02/04/2024 4:35 PM CDT): Stable. Evaluated by pulmonology. Recommend monitoring surveillance. Assessment & Plan (06/14/2023 10:39 AM CDT): Stable. Seen and evaluated by pulmonology. Follow-up next year with repeat CTA. Anemia 06/14/2023 Assessment & Plan (10/04/2023 2:19 PM CORK FLOOR INSTALLER): Anemia due to GI loss. No episode of bleeding. CBC back to normal. Denies any rectal bleed or black stool. Continue ferrous sulfate as ordered. Assessment & Plan (06/28/2023 3:50 PM CDT): Anemia due to GI loss. No episode of bleeding. Patient hemoglobin/hematocrit 10.3/33.1 from 8.3/36.7 during admission. Scheduled for CBC next week. Denies any rectal bleed or black stool. Continue ferrous sulfate as ordered. Assessment & Plan (06/14/2023 10:37 AM CDT): Anemia due to acute GI loss. Recent hemoglobin hematocrit June 06: 8.3/26.7. We will get repeat CBC this coming . Denies any rectal bleed or black stool. Denies any abdominal pain. Duodenal ulcer 06/07/2023 Assessment & Plan (10/04/2023 2:18 PM CORK FLOOR INSTALLER): Large duodenal ulcer noted per EGD. Intervention done successfully. Continue pantoprazole 40 mg twice daily for 2 months then once daily dosing thereafter indefinitely. Done with Carafate. Asymptomatic. Denies abdominal pain, nausea, vomiting, rectal bleed or black stool. Assessment & Plan (06/28/2023 3:46 PM CDT): Large duodenal ulcer noted per EGD. Intervention done successfully. Continue pantoprazole 40 mg twice daily for 2 months then once daily dosing thereafter indefinitely. Likewise continue Carafate as ordered and just to finish then discontinue. Patient asymptomatic. Denies any abdominal pain, nausea, vomiting and no rectal blood or black stool. Assessment & Plan (06/14/2023 11:17 AM CDT): Large duodenal ulcer noted per EGD. Intervention done successfully. Currently on pantoprazole and sucralfate as ordered. Hemoglobin/hematocrit stable. We will get CBC. Follow-up GI.-She was again advised to avoid any NSAIDs at all. This was discussed at length with patient.--SHe is currently asymptomatic. Denies any abdominal pain, nausea, vomiting. No rectal blood or black stool. Gastrointestinal hemorrhage associated with duod enal ulcer 06/07/2023 Assessment & Plan (10/04/2023 2:18 PM CORK FLOOR INSTALLER): History of GI bleed due to large duodenal ulcer. Underwent EGD intervention/epinephrine injection plus cautery. No episode of bleeding. Patient continues to do well. CBC back to normal. Continue ferrous sulfate 325 mg daily. Denies any rectal bleed/black stool. Assessment & Plan (06/28/2023 3:49 PM CDT): GI bleed due to large duodenal ulcer. Underwent EGD intervention/epinephrine injection plus cautery. Patient continues to do well. Hemoglobin/hematocrit stable and much better. Recent hemoglobin/hematocrit 10.3/33.1 from 8.3/25.9. She is scheduled to get another CBC next week. Continue iron ferrous sulfate 325 mg daily. Denies any rectal bleed/black stool. We will continue to monitor. Assessment & Plan (06/14/2023 10:35 AM CDT): GI bleed due to large duodenal ulcer. Patient underwent EGD intervention/epinephrine injection plus cautery. Tolerated procedure well. Hemoglobin/hematocrit stable. Denies any rectal bleed or black stool. We will get CBC this coming . Continue pantoprazole and sucralfate as ordered compliantly. Has appointment with GI this coming Tuesday. Duodenitis 06/03/2023 Overview (06/04/2023): Added automatically from request for surgery [id number] Assessment & Plan (06/28/2023 3:49 PM CDT): Asymptomatic. Continue pantoprazole and Carafate as ordered compliantly. Assessment & Plan (06/14/2023 10:36 AM CDT): Currently asymptomatic. Continue pantoprazole and Carafate as ordered. Abdominal aortic aneurysm (AAA) 03/08/2023 Assessment & Plan (10/08/2024 1:44 PM CORK FLOOR INSTALLER): Stable ascending aortic aneurysm 4.1 x 4.0 cm. Asymptomatic. Follow-up cardiology and vascular. Monitor. Assessment & Plan (06/06/2024 1:27 PM CDT): Stable ascending aortic aneurysm 4.1 x 4.0 cm. She remains asymptomatic. Monitor. Follow-up cardiology and vascular. Assessment & Plan (02/04/2024 4:35 PM CDT): Stable ascending aortic aneurysm 4.1 x 4.0 cm. Asymptomatic. Monitor. Follow-up cardiology/vascular. Assessment & Plan (10/04/2023 2:15 PM CORK FLOOR INSTALLER): Stable ascending aortic aneurysm 4.1 x 4.0 cm. Follow-up cardiology/vascular. Assessment & Plan (06/14/2023 10:42 AM CDT): Ascending aortic aneurysm 4.1 x 4.0 cm. Stable. Follow-up vascular. Assessment & Plan (03/08/2023 9:16 AM CDT): Ascending aortic aneurysm measuring 4.1 x 4.0 cm. We will refer patient to vascular. Leg edema 02/14/2023 Assessment & Plan (03/08/2023 10:19 AM CDT): Venous insufficiency/stasis dermatitis. No leg swelling/edema noted in this visit. Patient currently HCTZ. Continue wearing tight support compression stocking hose. On during the day and off during the night. Leg elevation as needed. Patient aware of signs and symptoms of heart failure. Assessment & Plan (02/14/2023 12:44 PM CDT): Possibly venous insufficiency/stasis dermatitis right more than the left. History of right total knee replacement--no warmth/tenderness/pain.--Swelling/edema obvious during the end of the day. Gone when she wakes up in the morning. Patient is currently on HCTZ. Advised patient to be compliant in wearing her tight support compression stocking hose. On during the day and off during the night. Leg elevation as needed. Patient aware of signs and symptoms of heart failure. We will continue to monitor for now. Consider discontinuing HCTZ and start Lasix if indicated. Monitor. Acute respiratory failure with hypoxia ([facility]/HCC HHS/HCC) 01/13/2023 Assessment & Plan (06/28/2023 3:51 PM CDT): Patient continues to do well. Denies any shortness of breath and CAMACHO. Home O2 between 94 to 96% without oxygen. Continue albuterol HFA 2 puffs 4 times daily as needed. We will get pulmonary clearance before surgery. Assessment & Plan (06/14/2023 10:38 AM CDT): Shortness of breath is better. Same with CAMACHO. Home oxygen stat between 93 to 95%. States more than 95% with oxygen 2 L during exertion or activities. Advised to continue albuterol HFA 2 puffs 4 times daily as needed. Patient was already seen and evaluated by pulmonology recently. Assessment & Plan (02/14/2023 12:40 PM CDT): Shortness of breath is resolved. Same with CAMACHO. No longer using O2. O2 sat at room air 94% to 96%. Continue butyryl HFA 2 puffs 4 times daily as needed. Was referred to pulmonology. Assessment & Plan (01/31/2023 6:50 AM CDT): Clinically doing well. Denies any shortness of breath. No longer using O2. O2 sat at room air 94% to 96%. Continue albuterol HFA 2 puffs 4 times daily as needed. Was referred to pulmonology. Assessment & Plan (01/16/2023 3:33 PM CORK FLOOR INSTALLER): Clinically better compared from admission. Patient is still currently needing O2. O2 sat is between 94 to 97% with oxygen. Continue O2 as ordered compliantly including albuterol HFA. Will refer patient to pulmonology. S/P total knee arthroplasty, right 05/12/2022 Assessment & Plan (10/04/2023 2:19 PM CORK FLOOR INSTALLER): Patient continues to do well. Ambulating well. Done with PT. Continue exercises learned from PT. Primary osteoarthritis of right knee 04/15/2022 Assessment & Plan (12/01/2022 1:14 PM CORK FLOOR INSTALLER): SP total knee replacement April 20, 2022. She continues to do well. No complications noted. She is ambulating well with her right knee. Assessment & Plan (07/21/2022 2:08 PM CDT): SP right total knee replacement. April 20, 2022. She did well with no complications noted. Tolerated procedure well. Ambulating well. Assessment & Plan (04/18/2022 2:45 PM CDT): Patient is scheduled for total right knee replacement April 20, 2022. Cardiac peters cleared and may undergo stated procedure. Skin lesion 04/15/2022 Assessment & Plan (04/18/2022 2:48 PM CDT): Discolored skin lesion noted left posterior lower leg. No warmth, swelling, tenderness, erythema.-Chronic. No sign of infection. States does not bother her at all. Prediabetes 12/24/2021 Assessment & Plan (10/08/2024 1:43 PM CORK FLOOR INSTALLER): Hemoglobin A1c 5.8, 5.6. Continue diet and exercise. See ophthalmology regular. Footcare. Routine blood test/labs next visit. Assessment & Plan (06/06/2024 1:26 PM CDT): Recent hemoglobin A1c 5.8 from 5.6. Continue diet and exercise. See ophthalmology regular. Footcare. Assessment & Plan (02/04/2024 4:34 PM CDT): Most recent hemoglobin A1c 5.6. Controlled with diet and exercise. See ophthalmology regular. Footcare. Will get routine blood tests including hemoglobin A1c. Consider low-dose metformin if indicated. Assessment & Plan (10/04/2023 2:16 PM CORK FLOOR INSTALLER): Last hemoglobin A1c 5.6. Continue diet and exercise. Routine blood test next visit. See ophthalmology regularly. Foot care. Assessment & Plan (06/14/2023 10:42 AM CDT): Hemoglobin A1c 5.6. Continue diet and exercise. See ophthalmology regular. Foot care. Monitor. Assessment & Plan (02/14/2023 12:43 PM CDT): Hemoglobin A1c 5.6. Continue low-cholesterol/carbohydrate diet. Monitor. Assessment & Plan (01/31/2023 6:52 AM CDT): Recent hemoglobin A1c 5.6. Continue diet and exercise. See ophthalmology regularly. Foot care. Assessment & Plan (01/16/2023 3:36 PM CORK FLOOR INSTALLER): Most recent hemoglobin A1c 5.6. Controlled with diet and exercise. See ophthalmology regular. Foot care. Assessment & Plan (12/01/2022 1:59 PM CORK FLOOR INSTALLER): Less hemoglobin A1c 5.6. Continue diet and exercise. See ophthalmology regular. Foot care. Routine blood tests in December. Assessment & Plan (07/21/2022 2:18 PM CDT): Hemoglobin A1c 5.6. Continue diet and exercise. Monitor. See ophthalmology regularly. Foot care. Assessment & Plan (04/18/2022 2:46 PM CDT): Last hemoglobin A1c 5.6. Diet and exercise. We will continue to monitor. This ophthalmology regularly. Foot care. Assessment & Plan (12/27/2021 4:53 PM CORK FLOOR INSTALLER): Will get routine blood test with hemoglobin A1c. Consider low-dose Metformin if indicated. Advised to always stay on a low-cholesterol/carbohydrate diet. See ophthalmology regularly. Foot care. Impacted cerumen, right ear 12/14/2021 Assessment & Plan (09/03/2024 9:46 AM CDT): Ear flushing/irrigation/lavage of right ear done successfully with no complications noted. Patient tolerated procedure well. Tympanic membrane normal with good light reflex. Same with canal. No congestion is noted. Counseling done regarding how to clean ear. Avoid Q-tips. May discontinue Debrox otic solution now. Assessment & Plan (08/28/2024 3:56 PM CDT): Tried ear flushing/irrigation/lavage--unsuccessfully due to hard cerumen. She was again advised to start using Debrox otic solution 3 drops 3-4 times a day and avoid using cotton plug. Return to clinic in 5 to 7 days for ear flushing and irrigation. Avoid Q-tips as well. Counseling done. Assessment & Plan (12/27/2021 4:54 PM CORK FLOOR INSTALLER): Ear flushing/irrigation/lavage of right ear done successfully with no complications noted. Tolerated procedure well. Tympanic membrane normal with good light reflex and landmarks. Not congested. Same with canal. Advised to discontinue Debrox Otic solution. Avoid Q-tips. Assessment & Plan (12/14/2021 1:18 PM CORK FLOOR INSTALLER): Start Debrox otic solution 2 to 3 drops 3 times a day until her next visit. Will do ear flushing/irrigation/lavage. Advised not to use any Q-tips. Carpal tunnel syndrome, right 10/13/2020 Assessment & Plan (12/01/2022 2:00 PM CORK FLOOR INSTALLER): Stable. Advised to continue wearing cock up wrist splint especially at night. She had steroid injection with some relief. Assessment & Plan (07/21/2022 2:19 PM CDT): She had steroid injection with relief. Advised to continue wearing cock up splint. She continues to do well. Assessment & Plan (04/18/2022 2:39 PM CDT): She continues to do well. Had steroid injection with relief. Continue wearing cock-up splint. Assessment & Plan (12/27/2021 4:52 PM CORK FLOOR INSTALLER): Stable. SP steroid injection with relief. Continue wearing cock-up wrist splint as needed. Assessment & Plan (08/23/2021 10:02 AM CDT): Stable. Had steroid injection with some relief. Continue wearing cock-up wrist splint. Assessment & Plan (10/13/2020 11:27 AM CORK FLOOR INSTALLER): Seen by hand surgeon recently. Had steroid injection with some relief. We will continue to monitor. Consider surgery/release if getting worse. Subclinical hypothyroidism 01/01/2020 Assessment & Plan (10/08/2024 1:43 PM CORK FLOOR INSTALLER): Slight elevated TSH with normal free T4. She remains asymptomatic. Monitor. TSH/reflex next visit. Assessment & Plan (06/06/2024 1:26 PM CDT): Slightly elevated TSH with normal free T4. Asymptomatic. Monitor. Assessment & Plan (02/04/2024 4:34 PM CDT): Last TSH back to normal. Asymptomatic. Monitor. Assessment & Plan (10/04/2023 2:17 PM CORK FLOOR INSTALLER): TSH back to normal. Asymptomatic. Monitor. Assessment & Plan (03/08/2023 10:17 AM CDT): Asymptomatic. We will continue to monitor for now. Normal free T4. Assessment & Plan (02/14/2023 12:42 PM CDT): Slight elevated TSH with normal free T4. Asymptomatic. Monitor. Assessment & Plan (01/31/2023 6:52 AM CDT): Slight elevated TSH with normal free T4. She remains asymptomatic. Monitor. Assessment & Plan (01/16/2023 3:35 PM CORK FLOOR INSTALLER): Slightly elevated TSH with normal free T4. Asymptomatic. We will continue to monitor. Continue low-dose levothyroxine if indicated. Assessment & Plan (12/01/2022 1:59 PM CORK FLOOR INSTALLER): Mild elevated TSH. Normal free T4. She remains asymptomatic. Monitor. Routine blood test in December including TSH. Consider low-dose allopurinol if indicated. Assessment & Plan (07/21/2022 2:19 PM CDT): Mildly elevated TSH with normal free T4. Asymptomatic. Monitor. Routine blood test next visit. Continue low-dose levothyroxine if indicated. Assessment & Plan (08/23/2021 10:01 AM CDT): TSH 4.3, free T4 0.85. She remains asymptomatic. We will continue to monitor. Consider low-dose levothyroxine if indicated. Assessment & Plan (01/06/2021 11:12 AM CORK FLOOR INSTALLER): Recent TSH 4.3 with normal free T4 0.85. She is asymptomatic. We will continue to monitor. Assessment & Plan (10/13/2020 11:29 AM CORK FLOOR INSTALLER): She remains asymptomatic. Slight elevated TSH with normal free T4. We will continue to monitor. Repeat TSH in December. Assessment & Plan (06/25/2020 11:49 AM CDT): Slight elevated TSH with normal free T4--patient is asymptomatic. We will continue to monitor. Assessment & Plan (01/01/2020 3:24 PM CORK FLOOR INSTALLER): TSH 4.39 with normal free T4 0.9. Patient is completely asymptomatic. Will continue to monitor for now. Primary osteoarthritis of left knee 08/13/2019 Assessment & Plan (06/28/2023 3:45 PM CDT): Chronic left knee pain due to severe OA/DJD. Scheduled for total knee arthroplasty July 21. We will get pulmonary and cardiac clearance. Assessment & Plan (06/14/2023 10:39 AM CDT): Chronic left knee pain due to severe OA/DJD. Scheduled for total knee arthroplasty possibly July 21. If this persists 2, we will send patient to pulmonology and cardiology for clearances before surgery. Assessment & Plan (03/08/2023 10:16 AM CDT): Chronic left knee pain due to severe OA/DJD. Scheduled for total knee arthroplasty but was canceled due to recent admission and Tuesday. Scheduled to see pulmonology for further evaluation. Will need to get clearance both from pulmonology and cardiology. Assessment & Plan (02/14/2023 12:41 PM CDT): She continues to have left knee pain due to severe OA/DJD. Scheduled for total knee arthroplasty but was canceled due to recent admission. Will get CT scan of the chest and possibly pulmonary clearance before undergoing stated procedure. Same with cardiac clearance. Assessment & Plan (01/31/2023 6:51 AM CDT): Severe OA/DJD left knee. Scheduled for left total knee arthroplasty. This was canceled due to recent admission to hospital. Was referred to pulmonology for further evaluation and possibly clearance as well. Same referred to cardiology for cardiac clearance. Assessment & Plan (01/16/2023 3:37 PM CORK FLOOR INSTALLER): Severe OA/DJD left knee. Scheduled for left total knee arthroplasty this January. Currently on meloxicam 75 mg daily as needed. Refer patient to pulmonology for further evaluation and clearance before surgery. Likewise referred to cardiology for cardiac clearance as well. Assessment & Plan (12/01/2022 2:00 PM CORK FLOOR INSTALLER): Severe OA/DJD left knee. Patient scheduled for left total knee arthroplasty sometime in January. She is currently taking meloxicam 75 mg daily as needed. Advised to always take it with food. Aware of adverse effects of chronic usage of NSAIDs. Assessment & Plan (12/27/2021 4:53 PM CORK FLOOR INSTALLER): Stable. Continue meloxicam 7.5 mg daily as needed with food. Patient aware of adverse effects of chronic usage of NSAIDs. Assessment & Plan (08/23/2021 10:03 AM CDT): Stable. Continue meloxicam 7.5 mg daily as needed with food. Discussed again adverse effects of chronic usage of NSAIDs. Assessment & Plan (01/06/2021 11:11 AM CORK FLOOR INSTALLER): Stable. She takes meloxicam 7.5 mg daily and responding well to this. She was advised to take it only as needed and always with food. She is aware of adverse effect/reactions of chronic usage of NSAIDs. Assessment & Plan (12/18/2019 2:15 PM CORK FLOOR INSTALLER): Patient currently is doing well. Denies any pain. Responding well with meloxicam 7.5 mg daily. She sees Dr. Daley regularly. She was advised to always take meloxicam with food. Adverse effect/reactions of chronic usage of NSAIDs discussed. Assessment & Plan (08/13/2019 12:53 PM CDT): So far doing well. She was started on meloxicam 7.[address] Daley. Adverse effect/reaction discussed. Advised to always take it with food. Likewise take it as needed. Otherwise may take Tylenol Extra Strength 1-2 every 8 hours as needed. History of breast cancer 08/13/2019 Assessment & Plan (10/08/2024 1:44 PM CORK FLOOR INSTALLER): She continues to do well. Follow-up oncologist at [place]. Assessment & Plan (06/06/2024 1:27 PM CDT): Patient continues to do well. Follow-up oncologist at [place]. Assessment & Plan (01/16/2023 3:36 PM CORK FLOOR INSTALLER): She continues to do well. Follow-up oncologist at [place]. Assessment & Plan (07/21/2022 2:19 PM CDT): Follow-up oncologist at [place]. She continues to do well. Assessment & Plan (04/18/2022 2:46 PM CDT): She continues to do well. Follow-up oncologist at [place]. Assessment & Plan (12/27/2021 4:55 PM CORK FLOOR INSTALLER): She continues to do worse. Follow-up oncologist at [place]. Assessment & Plan (08/23/2021 10:03 AM CDT): She continues to do well. Follow-up with oncologist at [place]. Assessment & Plan (10/13/2020 11:29 AM CORK FLOOR INSTALLER): She continues to do well. She follow-ups with her doctor at [place]. Assessment & Plan (06/25/2020 11:50 AM CDT): Patient continues to do well. She was again advised to follow-up with her doctor at [place]. Assessment & Plan (12/18/2019 2:16 PM CORK FLOOR INSTALLER): Patient is up-to-date with mammogram. She continues to do well. She goes regularly to [place]. Assessment & Plan (08/13/2019 11:37 AM CDT): Patient is doing well. She is scheduled for mammogram at [place] this afternoon. History of ovarian cancer 08/13/2019 Assessment & Plan (10/08/2024 1:44 PM CORK FLOOR INSTALLER): She continues to do well. Follow-up gynecology. Assessment & Plan (06/06/2024 1:27 PM CDT): She continues to do well. Follow-up gynecology. Assessment & Plan (01/16/2023 3:36 PM CORK FLOOR INSTALLER): She continues to do well. Follow-up gynecology. Assessment & Plan (04/18/2022 2:46 PM CDT): She continues to do well. Follow-up with gynecology regularly. Assessment & Plan (12/27/2021 4:55 PM CORK FLOOR INSTALLER): She continues to do well. Advised to follow-up regularly with tool setter. Assessment & Plan (08/23/2021 10:04 AM CDT): She continues to do well. Follow-up with [facility] WRITER/oncologist. Assessment & Plan (10/13/2020 11:29 AM CORK FLOOR INSTALLER): She continues to do well. She follows up with her PROCESS DESCRIPTION WRITER/oncologist/. Assessment & Plan (06/25/2020 11:50 AM CDT): Patient continues to do well. She was again advised to follow-up with her PROCESS DESCRIPTION WRITER oncologist/Dr. Posadas. Assessment & Plan (12/18/2019 2:16 PM CORK FLOOR INSTALLER): Patient continues to do well. She is under the care of PROCESS DESCRIPTION WRITER oncologist/. Assessment & Plan (08/13/2019 11:37 AM CDT): Patient is doing well. She was just seen by her tool setter/oncologist Dr. Posadas last week. Arthralgia of left knee 04/12/2019 Assessment & Plan (04/12/2019 11:23 AM CDT): Will get x-ray of the left knee. For now continue Motrin 400 to 600 mg 3 times daily as needed with food. Consider referral to Dr. Daley who is known to patient. Moderate mitral regurgitation 08/02/2017 Assessment & Plan (10/08/2024 1:42 PM CORK FLOOR INSTALLER): Stable. Denies any symptoms of heart failure. Continue beta-blockers, baby aspirin. Follow-up cardiology. Assessment & Plan (06/06/2024 1:25 PM CDT): Stable. Denies any symptoms heart failure. Continue beta-blockers, baby aspirin. Follow-up cardiology. Assessment & Plan (02/04/2024 4:33 PM CDT): Stable. Denies any symptoms of heart failure. Continue beta-blockers, baby aspirin. Follow-up cardiology. Assessment & Plan (10/04/2023 2:16 PM CORK FLOOR INSTALLER): Denies any symptoms heart failure. Currently on beta-blockers and baby aspirin. Follow-up cardiology. Assessment & Plan (03/08/2023 10:16 AM CDT): Denies any symptoms heart failure. Continue beta-blockers and baby aspirin. Follow-up cardiology. Assessment & Plan (02/14/2023 12:42 PM CDT): Denies any symptoms of heart failure. She continues to do well. Currently on beta-blockers and baby aspirin. Assessment & Plan (01/31/2023 6:51 AM CDT): Patient continues to do well and denies any symptoms heart failure. Continue beta-blockers and baby aspirin. Assessment & Plan (01/16/2023 3:34 PM CORK FLOOR INSTALLER): Denies symptoms of heart failure. Continue beta-blockers and baby aspirin. Assessment & Plan (12/01/2022 1:57 PM CORK FLOOR INSTALLER): Asymptomatic. Denies any symptoms heart failure. Currently on beta-blockers and baby aspirin. Assessment & Plan (07/21/2022 2:18 PM CDT): Denies any symptoms heart failure. She remains asymptomatic. Currently on beta-blockers and baby aspirin. Assessment & Plan (04/18/2022 2:42 PM CDT): Asymptomatic and denies any symptoms of heart failure. Currently on beta- blockers and baby aspirin. Assessment & Plan (12/27/2021 4:52 PM CORK FLOOR INSTALLER): She remains asymptomatic. Denies any symptoms of heart failure. Currently on beta-blockers and baby aspirin. Assessment & Plan (08/23/2021 10:02 AM CDT): Asymptomatic. Denies any symptoms of heart failure. Continue beta-blockers and baby aspirin. Assessment & Plan (01/06/2021 11:11 AM CORK FLOOR INSTALLER): She continues to remain asymptomatic. No symptoms heart failure. Continue beta-lauren and baby aspirin. Assessment & Plan (10/13/2020 11:28 AM CORK FLOOR INSTALLER): She remains asymptomatic. Denies any chest pain/shortness of breath. Denies any symptoms of heart failure. Continue beta-lauren and baby aspirin. Seen recently by cardiology. Assessment & Plan (06/25/2020 11:48 AM CDT): Stable and asymptomatic. Denies chest pain/shortness of breath. No sign or symptoms of heart failure. Currently on beta-lauren and baby aspirin. Follow-up with Dr. Earl. Assessment & Plan (12/18/2019 2:13 PM CORK FLOOR INSTALLER): Stable. She denies any chest pain/shortness of breath. No signs or symptoms of CHF. She is asymptomatic. Continue beta-lauren and baby aspirin. Follow-up with Dr. Earl. Assessment & Plan (08/13/2019 12:52 PM CDT): Stable and asymptomatic. Denies any chest pain/shortness of breath. Currently on beta-lauren and baby aspirin. Follow-up with Dr. Earl. Assessment & Plan (04/12/2019 11:30 AM CDT): Stable and symptomatic. Follow-up with Dr. Earl. Patient is on beta-lauren and baby aspirin. Assessment & Plan (12/11/2018 11:37 AM CORK FLOOR INSTALLER): Stable and asymptomatic. She sees cardiology on a regularly. SOB (shortness of breath) 12/14/2016 Heart murmur 12/14/2016 Aortic insufficiency 12/14/2016 Mild major depression 02/19/2013 Assessment & Plan (10/08/2024 1:43 PM CORK FLOOR INSTALLER): In good spirits. She denies suicidal ideation or self-harm. Continue Lexapro 10 mg daily. Assessment & Plan (06/06/2024 1:26 PM CDT): In good spirits. Denies any suicidal ideation. Continue Lexapro 10 mg daily. Assessment & Plan (02/04/2024 4:35 PM CDT): She continues to do well. In good spirits. Denies any suicidal ideation/self- harm. Continue Lexapro 10 mg daily. Assessment & Plan (10/04/2023 2:19 PM CORK FLOOR INSTALLER): In good spirits. Continue Lexapro 10 mg daily. Denies any suicidal ideation/self-harm. Assessment & Plan (06/14/2023 10:42 AM CDT): In good spirits. Denies any suicidal ideation/self-harm. Continue Lexapro 10 mg daily. Assessment & Plan (01/31/2023 6:53 AM CDT): She continues to do well and in good spirits. Denies any suicidal ideation and self-harm. continue escitalopram 10 mg daily. Assessment & Plan (01/16/2023 3:37 PM CORK FLOOR INSTALLER): In good spirits. Continue escitalopram 10 mg daily. Denies any suicidal ideation or self-harm. Assessment & Plan (12/01/2022 1:59 PM CORK FLOOR INSTALLER): In good spirits. Denies suicidal ideation or self-harm. Continue escitalopram 20 mg daily. Assessment & Plan (04/18/2022 2:47 PM CDT): In good spirits. Continue escitalopram daily. She denies any suicidal ideation/self-harm. Assessment & Plan (12/27/2021 4:54 PM CORK FLOOR INSTALLER): In good spirits. Denies any suicidal ideation/self-harm. Continue escitalopram 10 mg daily. Assessment & Plan (08/23/2021 10:03 AM CDT): In good spirits. She continues to do well with escitalopram 10 mg daily. Denies suicidal ideation/self-harm. Assessment & Plan (01/06/2021 11:12 AM CORK FLOOR INSTALLER): In good spirits. Denies any suicidal ideation/self-harm. Continue escitalopram 10 mg daily compliantly and faithfully. Assessment & Plan (10/13/2020 11:29 AM CORK FLOOR INSTALLER): In good spirits. Continue escitalopram 10 mg daily. She denies any suicidal ideation or self-harm. Assessment & Plan (06/25/2020 11:49 AM CDT): In good spirits. Denies suicidal ideation/self-harm. Continue escitalopram 10 mg daily. Assessment & Plan (01/01/2020 3:25 PM CORK FLOOR INSTALLER): In good spirits. Patient responding well with escitalopram 10 mg daily. She denies any suicidal ideation/self-harm. Assessment & Plan (12/18/2019 2:16 PM CORK FLOOR INSTALLER): In good spirits. Continue escitalopram 10 mg daily. Denies suicidal ideation/self-harm. Assessment & Plan (08/13/2019 11:42 AM CDT): In good spirits. Doing well with escitalopram 10 mg daily. Denies any suicidal ideation/self-harm. Assessment & Plan (04/12/2019 11:31 AM CDT): Continue escitalopram 10 mg daily. In good spirits. Assessment & Plan (12/11/2018 11:38 AM CORK FLOOR INSTALLER): In good spirits. Currently on escitalopram 20 mg daily. Hyperlipidemia 02/19/2013 Assessment & Plan (10/08/2024 1:43 PM CORK FLOOR INSTALLER): Lipid panel controlled with normal LFTs. Continue atorvastatin 10 mg daily and low-cholesterol diet. Stay active. Routine blood test/labs next visit. Assessment & Plan (06/06/2024 1:26 PM CDT): Lipids controlled. LFTs normal. Continue atorvastatin 10 mg daily and low- cholesterol diet. Stay active. Assessment & Plan (02/04/2024 4:34 PM CDT): Stable lipids with normal LFTs. Will get routine blood test/labs including lipid panel. Currently on atorvastatin 10 mg daily. Will adjust dose accordingly. Always stay on a low-cholesterol diet. Stay active. Assessment & Plan (10/04/2023 2:16 PM CORK FLOOR INSTALLER): Stable lipids with normal LFTs. Continue atorvastatin 10 mg daily and low- cholesterol diet. Routine blood test next visit. Assessment & Plan (06/14/2023 10:41 AM CDT): Stable lipids. LFTs normal. Continue atorvastatin 10 mg daily and low- cholesterol diet. Assessment & Plan (03/08/2023 10:17 AM CDT): Normal lipids. LFTs normal. Continue simvastatin 20 mg daily and low-cholesterol diet. Assessment & Plan (02/14/2023 12:42 PM CDT): Lipids controlled. LFTs normal. Continue simvastatin 20 mg daily and low- cholesterol diet. Assessment & Plan (01/31/2023 6:51 AM CDT): Lipids controlled with normal LFTs. Continue simvastatin 20 mg daily and low-cholesterol diet. Assessment & Plan (01/16/2023 3:35 PM CORK FLOOR INSTALLER): Lipid panel controlled. LFTs normal. Continue simvastatin 20 mg daily and low-cholesterol diet. Assessment & Plan (12/01/2022 1:57 PM CORK FLOOR INSTALLER): Lipids controlled with normal LFTs. Continue simvastatin 20 mg daily and low-cholesterol diet. Routine blood tests in December. Assessment & Plan (07/21/2022 2:18 PM CDT): Lipids well controlled. LFTs normal. Continue simvastatin and low-cholesterol diet. Assessment & Plan (04/18/2022 2:46 PM CDT): Lipids controlled. LFTs normal. Continue simvastatin, low-cholesterol/salt diet. Stay active. Assessment & Plan (12/27/2021 4:55 PM CORK FLOOR INSTALLER): Lipids controlled with normal LFTs. Will get routine blood test/labs including lipid panel. Continue simvastatin 40 mg daily and low-salt diet. Exercise. Assessment & Plan (08/23/2021 10:01 AM CDT): Lipids controlled. LFTs normal. Continue simvastatin 20 mg daily and low- cholesterol diet. Assessment & Plan (01/06/2021 11:12 AM CORK FLOOR INSTALLER): Recent lipid panel well controlled. LFTs normal. Continue same dose of simvastatin 20 mg daily, low-cholesterol/salt diet. Stay active. Assessment & Plan (10/13/2020 11:28 AM CORK FLOOR INSTALLER): Controlled with normal LFTs. Continue simvastatin 20 mg daily. Continue low-cholesterol/salt diet. Stay active. Will get routine blood test this coming December. Assessment & Plan (06/25/2020 11:49 AM CDT): Her last lipid panel well controlled. LFTs normal. Continue simvastatin 20 mg daily and low-cholesterol/salt diet. Exercise and stay active. Assessment & Plan (01/01/2020 3:24 PM CORK FLOOR INSTALLER): Lipids well controlled. LFTs normal. Doing well with simvastatin 20 mg daily. Advised to continue low-cholesterol/salt diet. Exercise and stay active. Assessment & Plan (12/18/2019 2:17 PM CORK FLOOR INSTALLER): Lipid panel controlled. LFTs normal. Continue simvastatin daily. Always stay in a low-cholesterol diet. Exercise and stay active. Will get routine blood test including lipids in 1 to 2 weeks. Assessment & Plan (08/13/2019 11:42 AM CDT): Lipids controlled. Continue simvastatin 20 mg daily and low-cholesterol diet. Exercise and stay active. Assessment & Plan (04/12/2019 11:31 AM CDT): Lipids well controlled. Continue simvastatin 20 mg daily. Continue low- cholesterol diet. Exercise. Assessment & Plan (12/11/2018 11:37 AM CORK FLOOR INSTALLER): Controlled. Currently on simvastatin 20 mg daily. Essential hypertension Assessment & Plan (10/08/2024 1:42 PM CORK FLOOR INSTALLER): Repeat BP 135/65. States home BP is always normal below 140/90. Continue amlodipine 5 mg daily, losartan 50 mg daily and metoprolol succinate ER 25 mg 2 tablets daily. She is also on furosemide and KCl. Low-salt diet. Stay active. Assessment & Plan (08/28/2024 3:58 PM CDT): Repeat BP 138/68. Continue amlodipine 5 mg daily, losartan 50 mg daily, metoprolol succinate ER 25 mg 2 tablets daily, furosemide and KCl. Low-salt diet. Assessment & Plan (06/06/2024 1:25 PM CDT): Normotensive and controlled. Continue amlodipine 5 mg daily, losartan 50 mg daily, metoprolol succinate ER 25 mg 2 tablets daily, furosemide 20 mg daily and KCl 20 mEq daily. Low-salt diet. Stay active. Assessment & Plan (02/04/2024 4:33 PM CDT): Repeat BP 135/62. Continue amlodipine 5 mg daily, losartan 50 mg daily, metoprolol succinate ER 25 mg 2 tablets daily furosemide 20 mg daily, KCl 20 mEq daily. Low-salt diet. Stay active. Assessment & Plan (10/04/2023 2:15 PM CORK FLOOR INSTALLER): Normotensive and controlled. Continue amlodipine 5 mg daily, furosemide 20 mg daily, potassium 10 mEq daily and losartan 50 mg daily, metoprolol succinate ER 25 mg 2 tablets daily and low-salt diet. Stay active. Assessment & Plan (06/14/2023 10:40 AM CDT): BP is controlled. Continue amlodipine 5 mg daily, furosemide 20 mg daily, potassium 10 mg once daily, losartan 50 mg daily, metoprolol succinate ER 25 mg 2 tablets daily. Low-salt diet. Assessment & Plan (03/08/2023 10:16 AM CDT): Normotensive. Continue HCTZ 25 mg daily, metoprolol succinate 25 mg daily and losartan 50 mg daily. Low-salt diet. Assessment & Plan (02/14/2023 12:42 PM CDT): BP is controlled and normotensive. Continue HCTZ 25 mg daily, metoprolol succinate 25 mg daily and losartan 50 mg daily. Low-salt diet. Assessment & Plan (01/31/2023 6:52 AM CDT): Normotensive and controlled. Continue HCTZ 25 mg daily, metoprolol succinate 25 mg daily, losartan 50 mg daily and low-salt diet. Assessment & Plan (01/16/2023 3:35 PM CORK FLOOR INSTALLER): BP is controlled. Continue HCTZ 25 mg daily, metoprolol succinate 25 mg daily losartan 50 mg daily, low-salt diet. Assessment & Plan (12/01/2022 1:58 PM CORK FLOOR INSTALLER): Normotensive and controlled. Continue HCTZ 25 mg daily, metoprolol succinate 25 mg daily and losartan 50 mg daily. Low-salt diet. Stay active. Assessment & Plan (07/21/2022 2:17 PM CDT): BP is controlled. Continue same regimen: HCTZ, metoprolol succinate, losartan as previously ordered compliantly. Low-salt diet. Stay active. Assessment & Plan (04/18/2022 2:40 PM CDT): Repeat BP 130/70. Continue HCTZ, metoprolol succinate, losartan, as previously ordered. Low-salt diet. Exercise and stay active. Assessment & Plan (12/27/2021 4:52 PM CORK FLOOR INSTALLER): Repeat BP 135/75. Continue HCTZ 25 mg daily, metoprolol succinate 25 mg daily and losartan 50 mg daily. Monitor BP twice daily at least 3 times a week and record. Parameters discussed. Continue low-cholesterol/salt diet. Stay active. Assessment & Plan (08/23/2021 10:00 AM CDT): Normotensive and well controlled. Continue HCTZ 25 mg daily, metoprolol succinate 25 mg daily, losartan 50 mg daily,. Continue low-cholesterol/salt diet and stay active. Assessment & Plan (01/06/2021 11:11 AM CORK FLOOR INSTALLER): BP is controlled. Continue HCTZ 25 mg daily, metoprolol succinate 25 mg daily, losartan 50 mg daily, low-cholesterol/salt diet. Stay active. Assessment & Plan (10/13/2020 11:30 AM CORK FLOOR INSTALLER): Repeat BP 140/80, 140/70. Continue HCTZ 25 mg daily, metoprolol succinate 25 mg daily and losartan 50 mg daily. Continue low-cholesterol/salt diet. Stay active. Monitor BP twice daily and record. Parameters discussed. Assessment & Plan (06/25/2020 11:48 AM CDT): BP is well controlled. Continue HCTZ 25 mg daily, metoprolol succinate 25 mg daily, losartan 5 mg daily. Continue low-cholesterol/salt diet. Stay active. Assessment & Plan (01/01/2020 3:26 PM CORK FLOOR INSTALLER): Normotensive and well controlled. Continue HCTZ 25 mg daily, metoprolol succinate 25 mg daily losartan 50 mg daily. Continue low-cholesterol/carbohydrate/salt diet. Stay active. Assessment & Plan (12/18/2019 2:13 PM CORK FLOOR INSTALLER): Blood pressures well controlled. Continue HCTZ 25 mg daily, metoprolol succinate 25 mg 3 times daily and losartan 50 mg daily. Advised to always stay on a low cholesterol/carbohydrate/salt diet. Stay active. Assessment & Plan (08/13/2019 11:32 AM CDT): Normotensive and controlled. Continue HCTZ 25 mg daily, metoprolol succinate 25 mg 3 tabs daily and losartan 50 mg daily. Continue low carbohydrate/cholesterol/salt diet. Stay active. Assessment & Plan (04/12/2019 11:30 AM CDT): Pressures well controlled. Continue HCTz 25 mg daily, metoprolol succinate 25 mg ( 3 tabs )daily and losartan 50 mg daily. Diet and exercise. Assessment & Plan (12/11/2018 11:36 AM CORK FLOOR INSTALLER): Controlled. She is currently on hydrochlorothiazide 25 mg daily. Metoprolol succinate 25 mg daily and losartan 50 mg daily. She also takes baby aspirin daily. Dyslipidemia H/O mammogram Overview (12/18/2019): 07-31-18, goes to [facility] , HX breast CA Resolved Problems Problem Noted Date Diagnosed Date Resolved Date Paresthesia of thumb of right hand 04/12/2019 06/22/2023 Assessment & Plan (06/25/2020 11:47 AM CDT): Tingling/numbness/pain--much better improved. She is doing well with wearing cock-up wrist splint brace. Advised to continue especially at bedtime. Seen by neurology. Assessment & Plan (01/01/2020 3:27 PM CORK FLOOR INSTALLER): Patient was referred to neurology and for EMG/NCS. For now advised patient to always wear right cock-up splint/brace especially at bedtime. Assessment & Plan (12/18/2019 12:00 PM CORK FLOOR INSTALLER): Possible CTS. For now advised patient to continue wearing right cock-up wrist splint/brace and will refer to neurology/EMG/NCS. Assessment & Plan (04/12/2019 11:25 AM CDT): Possible CTS. For now advised patient to wear right cock up wrist splint/brace and go from there. Consider referral to neurology/EMG/NCS. Chest pain 12/14/2016 02/16/2023 Encounter for preventive health examination 02/19/2013 07/25/2020 Encounters Date Type Department Care Team Description 12/05/2024 Telephone [facility] [address] [place] [phone] Zack Sweeney MD Orders 12/05/2024 Telephone [facility] [address] [place] [phone] Zack Sweeney MD Information 12/05/2024 Telephone [facility], [place] [address] [place] [address] Chi Earl MD Refill Request (POTASSIUM) 11/20/2024 Scan [facility] INFO SRVCS Scanned, Doc [facility] 10/22/2024 Patient Outreach [address] [phone] Miladys Newell, MANAGER MARKETING ER F/U 10/19/2024 8:06 PM CORK FLOOR INSTALLER - 10/19/2024 10:13 PM CORK FLOOR INSTALLER Emergency [facility] Emergency Room [id number] [place] [phone] Kishor Suh MD Foot Injury Discharge Disposition: Home or Self Care (Routine Discharge) 10/19/2024 Travel 10/16/2024 Scan [facility] INFO SRVCS Scanned, Doc [facility] 10/15/2024 11:40 AM CORK FLOOR INSTALLER Office Visit [facility] [address] [phone] Yessi Sanford DO Follow Up 10/15/2024 Travel 10/08/2024 1:20 PM CORK FLOOR INSTALLER Office Visit [address] [phone] Zack Sweeney MD Follow Up (4mo) 10/08/2024 Travel 10/02/2024 10:52 AM CORK FLOOR INSTALLER - 10/02/2024 11:59 PM CORK FLOOR INSTALLER Hospital Encounter [facility] [id number] [place] [phone] Ysesi Sanford DO Discharge Disposition: Home or Self Care (Routine Discharge) 10/02/2024 Travel 09/25/2024 Scan [facility] INFO SRVCS Scanned, Doc [facility] 09/19/2024 10:30 AM CORK FLOOR INSTALLER Office Visit [facility] [address] [phone] Myra Winter, TELETYPEWRITER INSTALLER-C Chi Earl MD Mitral Valve Disorders; Hypertension; Lipids; Aneurysm 09/19/2024 Travel 09/11/2024 Scan [facility] INFO SRVCS Scanned, [facility] from Last 3 Months Immunizations Name Administration Dates Next Due Arexvy Respiratory Syncytial Virus (RSV, adjuvanted) 0.5 mL, PF 07/04/2024 Fluzone High Dose (IIV, triv alent, 0.5mL) 07/04/2024 Fluzone High Dose - >Age 65 (Prefilled Syringe) 09/22/2023,08/20/2021,09/10/2020,2018 Influenza (Generic) 08/05/2015,09/28/2014,1938 Influenza Adult (Generic) 09/04/2022,02/2019,08/07/2018,2016,11/02/2017,10/01/2016 MODERNA COVID-19 BIVALENT (1 2+), MRNA, LNP-S, PF 09/14/2022 MODERNA COVID-19 (12+) MRNA, LNP-S, PF, 100 MCG/ 0.5 ML DOSE 01/08/2021,12/11/2020 MODERNA COVID-19 (CHANNEL ACCOUNT MANAGER ROBERTO SHANKAR), MRNA, LNP-S, PF, 50 MCG/ 0.25 ML DOSE 10/04/2021 Pneumococcal (Pneumovax 23) 10/25/2016 Pneumococcal (Prevnar 13) 10/17/2015 Shingrix 05/09/2023,09/24/2022 Td 06/14/2010 Tdap (Generic) 09/24/2022 Zoster (Zostavax) [address] Unt/0.65Ml 05/09/2023 Family History Medical History Relation Comments Cancer Brother non hodgkins lym phoma No Known Problems Daughter Heart Attack Father Hypertension Father No Known Problems Mother Breast Cancer Sister 2 Cancer Sister 2 breast Diabetes Sister 3 Breast Cancer Sister 4 Cancer Sister 4 breast Kidney Disease Sister 4 Mental Health Sister 5 No Known Problems Son 1 No Known Problems Son 2 No Known Problems Son 3 Relation Status Comments Brother (Age 70) Daughter Alive Father (Age 66) Maternal Grandfather Maternal Grandmother Mother (Age 92) Paternal Grandfather Paternal Grandmother Sister 1 (Age 40) Sister 2 Sister 3 Alive Sister 4 Other Sister 5 Son 1 Alive Son 2 Alive Son 3 Alive Social History Tobacco Use Types Packs/Day Years Used Date Smoking Tobacco: Former Cigarettes 1 20 0 11/14/1959 - 11/14/1979 Passive Smoke Exposure: Past Smokeless Tobacco: Never Tobacco Cessation:Counseling Given: Yes Comments:None Alcohol Use Standard Drinks/Week Comments Yes [...] often do you attend chur ch or baptist services? Never 06/03/2023 Do you belong to any clubs o r organizations such as roman catholic groups, unions, fraternal or athletic groups, or [...] Recorded Patient Health Questionnaire-2 Score 0 08/21/2024 [facility] - [...] No 06/03/2023 Housing Stability Vital Sign Answer Brandon e Recorded In the last 12 months, [...] place to sleep or slept in a correction (including now)? No 06/03/2023 Comments No Sex and Gender Information Value Date Recorded Sex Assigned at Not on file Legal Sex Female 4:17 PM CORK FLOOR INSTALLER Gender Identity Female 02/10/2022 1:07 PM CDT Sexual Orientation Not on file Occupation Industry Job Start Date Job End Date Not on file Not on file Not on file Not on file Last Filed Vital Signs Vital Sign Reading Time Taken Comments Blood Pressure 122/54 10/19/2024 8:11 PM CORK FLOOR INSTALLER Pulse 60 10/19/2024 10:00 PM CORK FLOOR INSTALLER Temperature 36.1 ??C (97 ??F) 10/19/2024 10:00 PM CORK FLOOR INSTALLER Respiratory Rate 18 10/19/2024 10:00 PM CORK FLOOR INSTALLER Oxygen Saturation 92% 10/19/2024 10:00 PM CORK FLOOR INSTALLER Inhaled Oxygen Concentration - - Weight 82.6 kg (182 lb) 10/19/2024 8:11 PM CORK FLOOR INSTALLER Height 160 cm (5' 3 ) 10/19/2024 8:11 PM CORK FLOOR INSTALLER Body Mass Index 32.24 10/19/2024 8:11 PM CORK FLOOR INSTALLER Plan of Treatment Upcoming Encounters Date Type Department Care Team (Late st Contact Info) Description 02/07/2025 1:00 PM CDT Office Visit [facility] [address] [place] [phone] Zack Sweeney MD [address] [place] [phone] 02/22/2025 11:00 AM [place] [address] [place], [place] [phone] Georges Gandhi MD [address] [facility] [address] [place] [address] 02/28/2025 10:15 AM CDT Office Visit [facility], [address] [address] Georges Gandhi MD [address] [facility] [address] [place] [address] 03/19/2025 10:00 AM CDT Appointment [facility] [address] [place], [place] [phone] Chi Earl MD Three [facility]. [address] [place] [address] 04/03/2025 11:30 AM CDT [facility] [address] [place] [phone] Chi Earl MD [address] [place] [address] Health Maintenance Due Date Last Done Comments Annual Medicare Wellness Visit 2004 PHQ-2 (Physician [place]) 08/21/2025 08/21/2024 DTaP, Tdap and Td Vaccines (2 - Td or Tdap) 09/24/2032 09/24/2022, 06/14/2010 Pneumococcal Vaccine: 65+ Years Completed 10/25/2016, 10/17/2015 Zoster Vaccines Completed 05/09/2023, 04/15, 09/24/2022 Influenza Adult Completed 07/04/2024, 07/2023, 09/04/2022, Additional history exists RSV Immunization or 60+ Years Completed 07/04/2024 COVID-19 Vaccine Completed 07/28/2024, , 09/14/2022, Additional history exists Meningococcal B Vaccine Aged Out No l onger eligible based on patient's age to complete this topic Meningococcal Vaccine Aged Out No nuno marion eligible based on patient's age to complete this topic RSV Immunizations Under 20 Months Aged Out No longer eligible based on patient's age to complete this topic Goals Goal Patient Goal Type Associated Problems Recent Progress Patient-Stated? Author Establish Regular Follow-Ups with PCP Lifestyle On track( 023 3:37 PM CDT) No Marylou Carter RN Note: 06/08/23: PCP appt on 06/14/23 and patient is aware of this appt. Moving forward, please see body of note for patient status and progress towards the goal. Establish Plan for Symptom Monitoring Lifestyle On track( 023 3:37 PM CDT) Marylou King, RN Note: 06/08/23: Moving forward, please see body of note for patient status and progress towards the goal. Procedures Procedure Name Priority Date/Time Associated Diagnosis Comments XR FOOT LT 3V STAT 10/19/2024 8:59 PM CORK FLOOR INSTALLER XR ANKLE LT M3V STAT 10/19/2024 8:59 PM CORK FLOOR INSTALLER XR TIBIA+FIBULA LT 2V STAT 10/19/2024 8:59 PM C[address] FLOOR INSTALLER CT CHEST WO CON Routine 10/02/2024 11:16 AM CORK FLOOR INSTALLER Abnormal CT scan of lung Multiple nodules of lung from Last 3 Months Results * XR TIBIA+FIBULA LT 2V (10/19/2024 8:59 PM CORK FLOOR INSTALLER) Anatomical Region Laterality Modality TibFib Radiographic Karen ging 10/19/2024 9:10 PM CORK FLOOR INSTALLER Impressions 10/19/2024 9:12 PM CORK FLOOR INSTALLER IMPRESSION: 1. ??NO EVIDENCE OF ACUTE FRACTURE INVOLVING THE TIBIA NOR THE FIBULA. 2. ??ACUTE NONDISPLACED FRACTURE AT THE BASE OF THE FIFTH METATARSAL. Signed: Carter Cochran MD Referred By: ?? Interpreted By: Carter Cochran MD, 10/19/2024 9:10 PM Narrative 10/19/2024 9:12 PM C[address] FLOOR INSTALLER [facility] [address] [place] [address] PATIENT NAME: JACQUIE BUSTOS EXAM: Left tibia/fibula 2 view DATE OF EXAM: 10/19/2024 COMPARISON EXAM: None INDICATION: Trauma TECHNIQUE: AP and lateral left tibia/fibula FINDINGS: Diffuse soft tissue swelling. ??No soft tissue gas or radiopaque foreign body. ??There is no evidence of acute tibial fracture. ??No evidence of acute fibular fracture. ??There is a nondisplaced acute fracture at the base of the fifth metatarsal. ??Right knee arthroplasty without evidence of complication. Procedure Note Carter Cochran MD - 10/19/2024 [place] [address] [place] [address] PATIENT NAME: JACQUIE BUSTOS EXAM: Left tibia/fibula 2 view DATE OF EXAM: 10/19/2024 COMPARISON EXAM: None INDICATION: Trauma TECHNIQUE: AP and lateral left tibia/fibula FINDINGS: Diffuse soft tissue swelling. No soft tissue gas or radiopaqueforeign body. There is no evidence of acute tibial fracture. No evidenceof acute fibular fracture. There is a nondisplaced acute fracture at thebase of the fifth metatarsal. Right knee arthroplasty without evidence ofcomplication. IMPRESSION: 1. NO EVIDENCE OF ACUTE FRACTURE INVOLVING THE TIBIA NOR THE FIBULA. 2. ACUTE NONDISPLACED FRACTURE AT THE BASE OF THE FIFTH METATARSAL. Signed: Carter Cochran MD Referred By: Interpreted By: Carter Cochran MD, 10/19/2024 9:10 PM us Kishor Suh MD GENERAL IMAGING Final Result * XR FOOT LT 3V (10/19/2024 8:59 PM CORK FLOOR INSTALLER) Anatomical Region Laterality Modality Foot Radiographic Karen ging 10/19/2024 9:07 PM CORK FLOOR INSTALLER Impressions 10/19/2024 9:09 PM CORK FLOOR INSTALLER IMPRESSION: 1. ??ACUTE NONDISPLACED FRACTURE PROXIMAL FIFTH METATARSAL. Signed: Carter Cochran MD Referred By: ?? Interpreted By: Carter Cochran MD, 10/19/2024 9:07 PM Narrative 10/19/2024 9:09 PM C[address] FLOOR INSTALLER [facility] [address] [place] [address] PATIENT NAME: JACQUIE BUSTOS EXAM: Left foot 3 view DATE OF EXAM: 10/19/2024 COMPARISON EXAM: None INDICATION: Trauma, lateral pain TECHNIQUE: AP, lateral and oblique left foot FINDINGS: Lateral soft tissue swelling. ??Acute nondisplaced fracture proximal fifth metatarsal. ??No other evidence of fracture or dislocation is demonstrated. ??Joint spaces are fairly well-maintained. ??Accessory navicular. ??Calcaneal traction spurs. Procedure Note Carter Cochran MD - 10/19/2024 [facility] [address] [place] [address] PATIENT NAME: JACQUIE BUSTOS EXAM: Left foot 3 view DATE OF EXAM: 10/19/2024 COMPARISON EXAM: None INDICATION: Trauma, lateral pain TECHNIQUE: AP, lateral and oblique left foot FINDINGS: Lateral soft tissue swelling. Acute nondisplaced fractureproximal fifth metatarsal. No other evidence of fracture or dislocationis demonstrated. Joint spaces are fairly well-maintained. Accessorynavicular. Calcaneal traction spurs. IMPRESSION: 1. ACUTE NONDISPLACED FRACTURE PROXIMAL FIFTH METATARSAL. Signed: Carter Cochran MD Referred By: Interpreted By: Carter Cochran MD, 10/19/2024 9:07 PM Kishor Suh MD GENERAL IMAGING Final Result * XR ANKLE LT M3V (10/19/2024 8:59 PM CORK FLOOR INSTALLER) Anatomical Region Laterality Modality Ankle Radiographic Karen ging 10/19/2024 9:09 PM CORK FLOOR INSTALLER Impressions 10/19/2024 9:10 PM CORK FLOOR INSTALLER IMPRESSION: 1. ??ACUTE NONDISPLACED FRACTURE PROXIMAL FIFTH METATARSAL. Signed: Carter Cochran MD Referred By: ?? Interpreted By: Carter Cochran MD, 10/19/2024 9:09 PM Narrative 10/19/2024 9:10 PM C[address] F[address]OR INSTALLER [facility] [address] [place] [id number] PATIENT NAME: JACQUIE BUSTOS EXAM: Left ankle 3 view DATE OF EXAM: 10/19/2024 COMPARISON EXAM: None INDICATION: Trauma TECHNIQUE: AP, lateral and oblique left ankle FINDINGS: Diffuse abnormal soft tissue swelling. ??No soft tissue gas or radiopaque foreign body. ??There is no definite evidence of acute fracture or dislocation involving the ankle. ??Ankle mortise relationships are normal. ??There is an acute nondisplaced fracture distal fifth metatarsal. ??Calcaneal traction spurs. Procedure Note Carter Cochran MD - 10/19/2024 [facility] [address] [place] [address] PATIENT NAME: JACQUIE BUSTOS EXAM: Left ankle 3 view DATE OF EXAM: 10/19/2024 COMPARISON EXAM: None INDICATION: Trauma TECHNIQUE: AP, lateral and oblique left ankle FINDINGS: Diffuse abnormal soft tissue swelling. No soft tissue gas orradiopaque foreign body. There is no definite evidence of acute fractureor dislocation involving the ankle. Ankle mortise relationships arenormal. There is an acute nondisplaced fracture distal fifth metatarsal.Calcaneal traction spurs. IMPRESSION: 1. ACUTE NONDISPLACED FRACTURE PROXIMAL FIFTH METATARSAL. Signed: Carter Cochran MD Referred By: Interpreted By: Carter Cochran MD, 10/19/2024 9:09 PM Kishor Suh MD GENERAL IMAGING Final Result * CT CHEST WO CON (10/02/2024 11:16 AM CORK FLOOR INSTALLER) Anatomical Region Laterality Modality Chest Computed Tomogra phy 10/07/2024 8:22 AM CORK FLOOR INSTALLER Impressions 10/07/2024 8:29 AM CORK FLOOR INSTALLER IMPRESSION: 1. ??Stable bilateral pulmonary nodules. ??Follow-up on 01/06/2025 would document 2 years of stability. 2. ??No new nodules. ??No pathologic lymphadenopathy. Referred By: YESSI SANFORD Interpreted By: Yang Burks MD, 10/07/2024 8:22 AM Narrative 10/07/2024 8:29 AM C[address] FLOOR INSTALLER [facility] [address] [place] [address] EXAMINATION: CT CHEST WITHOUT CONTRAST EXAM DATE/TIME: 10/02/2024 10:59 AM REASON FOR EXAM: ??ION PROTOCOL - please push to ion laptop/pulmonary upon completion. Follow up lung nodule ?? COMPARISON: 03/12/2024. ??01/06/2023 TECHNIQUE: Computed tomography was performed of the chest without intravenous contrast. A dose lowering technique was used for this procedure, which may include, but is not limited to, dose reduction technique, automated exposure control, iterative reconstruction, ALARA (As Low As Reasonably Achievable), or Image Gently techniques. FINDINGS: On lung windows, no patchy infiltrate, pneumothorax, or pleural effusion. ??Stable mild scattered interstitial scar formation.. Stable 6 mm nodule in left lung apex on image 103 of series 4. ??Stable 6 mm nodule in anterior left upper lobe on image 223. Stable 1.1 cm nodule within medial right lung apex on image 120. ??Stable 1.4 cm groundglass ill-defined nodule in right lower lobe on image 286. ??No new nodules. On soft tissue windows, no axillary or supraclavicular lymphadenopathy. On mediastinal windows, no evidence of hilar or mediastinal lymphadenopathy. Heart size normal. No pericardial effusion. Stable ascending aortic dilatation measuring up to 4.1 cm.. ??Slightly prominent pulmonary artery trunk at 3.1 cm. ??Possibility of mild pulmonary arterial hypertension is raised.. Stable dystrophic calcifications in the right breast consistent with prior surgery. Limited evaluation of the upper abdomen demonstrates no acute abnormality. On bone windows, no suspicious skeletal lesion or acute compression fracture deformity. Procedure Note Yang Burks MD - 10/07/2024 [facility] [address] [place] [id number] EXAMINATION: CT CHEST WITHOUT CONTRAST EXAM DATE/TIME: 10/02/2024 10:59 AM REASON FOR EXAM: ION PROTOCOL - please push to ion laptop/pulmonary uponcompletion. Follow up lung nodule COMPARISON: 03/12/2024. 01/06/2023 TECHNIQUE: Computed tomography was performed of the chest withoutintravenous contrast. A dose lowering technique was used for this procedure, which may include,but is not limited to, dose reduction technique, automated exposurecontrol, iterative reconstruction, ALARA (As Low As ReasonablyAchievable), or Image Gently techniques. FINDINGS: On lung windows, no patchy infiltrate, pneumothorax, or pleural effusion.Stable mild scattered interstitial scar formation.. Stable 6 mm nodule in left lung apex on image 103 of series 4. Stable 6mm nodule in anterior left upper lobe on image 223. Stable 1.1 cm nodule within medial right lung apex on image 120. Stable1.4 cm groundglass ill-defined nodule in right lower lobe on image 286.No new nodules. On soft tissue windows, no axillary or supraclavicular lymphadenopathy. On mediastinal windows, no evidence of hilar or mediastinallymphadenopathy. Heart size normal. No pericardial effusion. Stable ascending aortic dilatation measuring up to 4.1 cm.. Slightlyprominent pulmonary artery trunk at 3.1 cm. Possibility of mild pulmonaryarterial hypertension is raised.. Stable dystrophic calcifications in the right breast consistent with priorsurgery. Limited evaluation of the upper abdomen demonstrates no acuteabnormality. On bone windows, no suspicious skeletal lesion or acute compressionfracture deformity. IMPRESSION: 1. Stable bilateral pulmonary nodules. Follow-up on 01/06/2025 woulddocument 2 years of stability. 2. No new nodules. No pathologic lymphadenopathy. 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 [facility] [address] [place] [address] [facility] Information Specialist CARDIOVASCULAR DISEASE 04/14/16
--- OUTSIDE RECORDS SUMMARY | 2024-12-07 02:17 | XMS_ITS | Encounter Summary ---
Author Organization [facility] Address [address] [place] [address]. [place] [address] [place] [address] Care Team Providers Care Flask Handler Name Role Phone Zack Sweeney MD Primary Care Provider [phone] Chi Earl MD Unavailable [phone] Marylou Carter RN Unavailable [phone] Marylou Carter RN Unavailable [phone] Encounter Details Date Type Department Care Team (Late st Contact Info) Description 12/17/2016 Abstract [facility] AT [address] [address] Janie Kong MA Social History Tobacco Use Types Packs/Day Years Used Date Smoking Tobacco: Former Cigarettes Q uit: 1980 Smokeless Tobacco: Never Alcohol Use Standard Drinks/Week Comments Yes 0 (1 standard drink = 0.6 oz pur e alcohol) 3 drinks a week Comments Unknown Sex and Gender Information Value Date Recorded Sex Assigned at Not on file Legal Sex Female 4:17 PM BRICK POINTER Gender Identity Female 02/10/2022 1:07 PM CDT Sexual Orientation Not on file documented as of this encounter Plan of Treatment Upcoming Encounters Date Type Department Care Team (Late st Contact Info) Description 02/07/2025 1:00 PM CDT Office Visit [facility] [address] [place] [phone] Zack Sweeney MD [address] [place] [phone] 02/22/2025 11:00 [place] [address] [place] [address] Georges Gandhi MD [address] [facility] [address] [place] [address] 02/28/2025 10:15 AM CDT Office [facility] [address] [place] [address] Georges Gandhi MD [address] [facility] [address] [place] [address] 03/19/2025 10:00 AM CDT Appointment [facility] [address] [place] [address] Chi Earl MD Three [facility]. [address] [place] [address] 04/03/2025 11:30 AM CDT Office Visit [facility] [address] [place] [address] Chi Earl MD Three [facility]. [address] [place] [address] documented as of this encounter Procedures Procedure Name Priority Date/Time Associated Diagnosis Comments BASIC METABOLIC PANEL Routine 05/04/2018 LIPID PANEL Routine 03/13/2018 HEPATIC FUNCTION PANEL Routine 03/13/2018 CBC (OUTSIDE LAB) Routine 01/06/2018 CMP (ABSTRACTED LAB) Routine 10/30/2015 CBC (OUTSIDE LAB) Routine 10/30/2015 LIPID PANEL Routine 10/30/2015 THYROID STIM HORMONE TSH Routine 10/30/2015 documented in this encounter Results * BASIC METABOLIC PANEL (05/04/2018) SODIUM S/P/B 141 POTASSIUM S/P/B 4.3 CO2 33.4 CHLORIDE S/P/B 101 GLUCOSE 111 mg/dL CALCIUM S/P/B 9.4 BUN 20 CREATININE S/P/B 0.70 0.5 - 1.0 EGFR AFR. AMER. >90 <=90 EGFR NON-AFR. AMER. 83 <=90 05/04/2018 us Doc [facility] Abstract LABORATORY Final Result * HEPATIC FUNCTION PANEL (03/13/2018) ALBUMIN S/P/B 3.7 3.5 - 5.0 ALKALINE PHOSPHATASE S/P/B 80 ALT 18 AST 14 BILIRUBIN DIRECT S/P/B 0.1 BILIRUBIN TOTAL S/P/B 0.6 TOTAL PROTEIN S/P/B 6.4 03/13/2018 us Doc [facility] Abstract LABORATORY Final Result * LIPID PANEL (03/13/2018) CHOLESTEROL 168 HDL 65 TRIGLYCERIDES 83 NON HDL CHOLESTEROL 103 LDL (CALCULATED) 86.4 03/13/2018 us Doc [facility] Abstract LABORATORY Final Result * CBC (OUTSIDE LAB) (01/06/2018) WBC 5.8 HGB 12.8 HCT 39.3 PLT 151 01/06/2018 us Doc [facility] Abstract LAB-OUTSIDE/ABSTRACTED Final Result * THYROID STIM HORMONE, TSH (10/30/2015) Pathologist [facility] TSH 3.731 10/30/2015 us Doc [facility] Abstract LABORATORY Final Result * CMP (ABSTRACTED LAB) (10/30/2015) Pathologist [facility] SODIUM S/P/B 145 POTASSIUM S/P/B 5.5 CHLORIDE S/P/B 104 CO2 33 BUN 13 CREATININE S/P/B 0.77 0.5 - 1.0 EGFR AFR. AMER. >60 <=90 EGFR NON-AFR. AMER. >60 <=90 CALCIUM S/P/B 9.3 GLUCOSE 99 TOTAL PROTEIN S/P/B 5.9 ALBUMIN S/P/B 4.1 3.5 - 5.0 AST 15 ALT 15 ALKALINE PHOSPHATASE S/P/B 67 BILIRUBIN TOTAL S/P/B 0.7 TOTAL PROTEIN S/P/B 5.9 URIC ACID 3.7 10/30/2015 us Doc [facility] Abstract LAB-OUTSIDE/ABSTRACTED Edite d Result - Final * LIPID PANEL (10/30/2015) Pathologist [facility] CHOLESTEROL 199 HDL 55 TRIGLYCERIDES 172 LDL (CALCULATED) 110 10/30/2015 us Doc [facility] Abstract LABORATORY Final Result * CBC (OUTSIDE LAB) (10/30/2015) Pathologist [facility] WBC 4.5 HGB 13.6 HCT 39.9 PLT 133 10/30/2015 us Doc [facility] Abstract LAB-OUTSIDE/ABSTRACTED Final Result documented in this encounter Visit Diagnoses Not on filedocumented in this encounter Additional Health Concerns Infection Onset Date Last Indicated Resolved Time COVID-19 Rule Out 02/17/2021 02/17/2021 02/18/2021 10:16 AM CDT COVID-19 Rule Out 01/06/2023 01/06/2023 01/06/2023 3:30 PM BRICK POINTER COVID-19 Rule Out 01/06/2023 01/06/2023 01/07/2023 11:07 AM BRICK POINTER COVID-19 Rule Out 08/21/2024 08/21/2024 08/21/2024 1:35 PM CDT documented as of this encounter Care Teams Flask Handler Relationship Specialty Start Date End Date Zack Sweeney MD PCP - General FAMILY PRACTICE 04/14/16 Chi Earl MD [facility]. [address] [address] Roxie Order Desk Caller CARDIOVASCULAR DISEASE 04/14/16 Marylou Carter RN [address] [place], [place] [phone] Limb Driver (Ambulatory) REGISTERED NURSE 01/07/23 02/08/23 Marylou Carter RN [address] [place] [address] Limb Driver (Ambulatory) REGISTERED NURSE 06/06/23 08/09/23 documented as of this encounter
--- OUTSIDE RECORDS SUMMARY | 2024-12-07 02:17 | XMS_ITS | Encounter Summary ---
Author Organization [facility] Address [address] [place] [address]. [place] [address] [place] [address] Care Team Providers Care Bow Making Machine Operator Name Role Phone Zack Sweeney MD Primary Care Provider Chi Earl MD Unavailable [phone] Reason for Visit * Reason Onset Date Comments Refill Request 12/05/2024 POTASSIUM Encounter Details Date Type Department Care Team ([facility] st Contact Info) Description 12/05/2024 Telephone [facility] [address] [phone] Chi Earl MD [address] [phone] Refill Request (POTASSIUM) Social History Tobacco Use Types Packs/Day Years [...] often do you attend chur ch or adventist services? Never 06/03/2023 Do you belong to any clubs o r organizations such as judaism groups, unions, fraternal or athletic groups, or [...] Recorded Patient Health Questionnaire-2 Score 0 08/21/2024 [facility] Occupat ional Health - Occupational Stress [...] place to sleep or slept in a fpc (including now)? No 06/03/2023 Comments No Sex and Gender Information Value Date Recorded Sex Assigned at Not on file Legal Sex Female 4:17 PM INPATIENT CODER Gender Identity Female 02/10/2022 1:07 PM CDT [...] Silveira RN Active documented in this encounter Plan of Treatment Upcoming Encounters Date Type Department Care Team (Late st Contact Info) Description 02/07/2025 1:00 PM CDT Office Visit [facility] [address] [place] [phone] Zack Sweeney MD [address] [place] [phone] 02/22/2025 11:00 AM CDT Appointment [facility] [address] [place], [place] [phone] Georges Gandhi MD 3 [facility] [address] [place] [address] 02/28/2025 10:15 AM CDT [facility], [facility] [address] [place] [address] Georges Gandhi MD 3 [facility] [address] [facility] [place] [address] 03/19/2025 10:00 AM CDT Appointment [facility] [address] [place] [address] Chi Earl MD Three [facility]. [facility] [address] [place] [address] 04/03/2025 11:30 AM CDT [facility] [address] [place] [address] Chi Earl MD Three [facility]. [facility] [address] [place], [place] [phone] documented as of this encounter Goals Goal [...] documented as of this encounter Care Teams Bow Making Machine Operator Relationship Specialty Start Date End Date Zack Sweeney MD PCP - General FAMILY PRACTICE 04/14/16 Chi Earl MD Three [facility]. [facility] [address] [place], [place] [address] Linnea Wharf Builder CARDIOVASCULAR DISEASE 04/14/16 documented as of this encounter
--- OUTSIDE RECORDS SUMMARY | 2024-12-07 02:17 | XMS_ITS | Encounter Summary ---
Author Organization [facility] Address [address] [place] [address]. [place] [address] [place] [address] Care Team Providers Care Isotope Hydrologist Name Role Phone Zack Sweeney MD Primary Care Provider [phone] Chi Earl MD Unavailable [phone] Marylou Carter RN Unavailable [phone] Marylou Carter RN Unavailable [phone] Encounter Details Date Type Department Care Team (Latest Contact Info) Description 09/19/2018 Abstract [facility] , Anna Golden MD Social History Tobacco Use Types Packs/Day Years Used Date Smoking Tobacco: Former Cigarettes Q uit: 1980 Smokeless Tobacco: Never Alcohol Use Standard Drinks/Week Comments Yes 0 (1 standard drink = 0.6 oz pur e alcohol) AUDIT-C Answer Date Recorded Frequency of Alcohol Consumption 2-3 times a wee k 08/02/2018 Average Number of Drinks 1 or 2 018 Frequency of Binge Drinking Never 07/15 Comments Unknown Sex and Gender Information Value Date Recorded Sex Assigned at Not on file Legal Sex Female 4:17 PM RAIL TRACK MAINTAINER Gender Identity Female 02/10/2022 1:07 PM CDT Sexual Orientation Not on file Occupation Industry Job Start Date Job End Date Not on file Not on file Not on file Not on file documented as of this encounter Plan of Treatment Upcoming Encounters Date Type Department Care Team (Late st Contact Info) Description 02/07/2025 1:00 PM CDT Office [facility] [address] [place] [phone] Zack Sweeney MD [address] [place] [address] 02/22/2025 11:00 AM [place] [address] [place] [address] Georges Gandhi MD 3 [facility] [address] [place] [address] 02/28/2025 10:15 AM CDT Office Visit [facility] THREE [facility], [address] [place] [address] Georges Gandhi MD 3 [facility] [address] [place] [address] 03/19/2025 10:00 AM CDT Appointment [facility] [address] [place] [address] Chi Earl MD Three [facility]. [address] [address] 04/03/2025 11:30 AM CDT Office Visit [facility] [address] [place] [phone] Chi Earl MD Three [facility]. [address] [address] documented as of this encounter Visit Diagnoses Not on filedocumented in this encounter Additional Health Concerns Infection Onset Date Last Indicated Resolved Time COVID-19 Rule Out 02/17/2021 02/17/2021 02/18/2021 10:16 AM CDT COVID-19 Rule Out 01/06/2023 01/06/2023 01/06/2023 3:30 PM RAIL TRACK MAINTAINER COVID-19 Rule Out 01/06/2023 01/06/2023 01/07/2023 11:07 AM RAIL TRACK MAINTAINER COVID-19 Rule Out 08/21/2024 08/21/2024 08/21/2024 1:35 PM CDT documented as of this encounter Care Teams Isotope Hydrologist Relationship Specialty Start Date End Date Zack Sweeney MD PCP - General FAMILY PRACTICE 04/14/16 Chi Earl MD [facility]. [address] [address] [place] Utilities Manager CARDIOVASCULAR DISEASE 04/14/16 Marylou Carter RN [address] [place], [place] [address] Primary Substance Abuse Counselor (Ambulatory) REGISTERED NURSE 01/07/23 02/08/23 Marylou Carter RN [address] [place], [place] [address] Primary Substance Abuse Counselor (Ambulatory) REGISTERED NURSE 06/06/23 08/09/23 documented as of this encounter
--- OUTSIDE RECORDS SUMMARY | 2024-12-07 02:17 | XMS_ITS | Referral Summary ---
Author Organization [facility] Address [address] [place] [address] Care Team Providers Care Lead Electrician Name Role Phone Zack Sweeney MD Primary Care Provider [phone] [facility],non-owned Affiliates and Associated Physician Practices is amultiple site organization consisting of ambulatory clinics and hospital sitesin [place], [place], [place] and [place]. This disclosure is being madepursuant to the Care Everywhere program and may not contain all information available regarding this patient. Last updated 18.[facility] Allergies No known active allergies Medications * Be aware that medications may not be up to date on this document. Alwaysverify current medications with the patient. Medication Sig Dispensed Refills Start Date End Date Status escitalopram (LEXAPRO) 20 MG tablet Take 20 mg by mouth 2 times daily 04/11/2018 Active lamoTRIgine (LAMICTAL) 200 MG tablet Take 200 mg by mouth once daily as needed 06/15/2018 Active losartan (COZAAR) 50 MG tablet Take 50 mg by mouth once daily 07/21/2018 Active metoprolol succinate XL 24hr (TOPROL XL) 25 MG tablet Take 75 mg by mouth once daily 07/29/2018 Active simvastatin (ZOCOR) 20 MG tablet Take 20 mg by mouth once daily 07/21/2018 Active BABY ASPIRIN PO Take 81 mg by mouth Active hydroCHLOROthiazide (HYDRODIURIL) 25 MG tablet Take 25 mg by mouth once daily 1 05/14/2019 Active latanoprost (XALATAN) 0.005 % ophthalmic solution Instill 2.5 mL into both eyes once daily 3 05/25/2019 Active meloxicam (MOBIC) 7.5 MG tablet Take 7.5 mg by mouth once daily 2 07/09/2019 Active Social History Tobacco Use Types Packs/Day Years [...] Mass Index 31.52 08/06/2019 9:13 AM CDT Plan of Treatment Not on file Care Teams Lead Electrician Relationship Specialty Start Date End Date Zack Sweeney MD PCP - General 04/21/18
--- OUTSIDE RECORDS SUMMARY | 2024-12-07 02:17 | XMS_ITS | Encounter Summary ---
Author Organization [facility] Address [address] [place] [address]. [place] [address] [place] [address] Care Team Providers Care Digital Ad Trafficker Name Role Phone Zack Sweeney MD Primary Care Provider [phone] Chi Earl MD Unavailable [phone] Marylou Carter RN Unavailable [phone] Marylou Carter RN Unavailable [phone] Encounter Details Date Type Department Care Team (Late st Contact Info) Description 04/16/2022 AirCell Message Enc [facility], [address] [address] [facility] Provider Stress Test Results Social History Tobacco Use Types Packs/Day Years Used Date Smoking Tobacco: Former Cigarettes 1 20 0 11/14/1959 - 11/14/1979 Smokeless Tobacco: Never Comments:None Alcohol Use Standard Drinks/Week Comments Yes 3.3 (1 standard drink = 0.6 oz p ure alcohol) Social drinker AUDIT-C Answer Date Recorded Frequency of Alcohol Consumption 2-3 times a wee k 08/02/2018 Average Number of Drinks 1 or 2 018 Frequency of Binge Drinking Never 07/15 PHQ-2 Answer Date Recorded PHQ-2 Score - If the patient scores above 3, please move on to questions 3-9 0 04/15/2022 Comments No Sex and Gender Information Value Date Recorded Sex Assigned at Not on file Legal Sex Female 4:17 PM METAL STAMPER Gender Identity Female 02/10/2022 1:07 PM CDT Sexual Orientation Not on file Occupation Industry Job Start Date Job End Date Not on file Not on file Not on file Not on file COVID-19 Exposure Response Date Recorded In the last 10 days, have yo u been in contact with someone who was confirmed or suspected to have Coronavirus/COVID-19? No / Unsure 04/14/2022 10:03 PM CDT documented as of this encounter Plan of Treatment Upcoming Encounters Date Type Department Care Team (Late st Contact Info) Description 02/07/2025 1:00 PM CDT Office Visit [facility] [address] [place] [phone] Zack Sweeney MD [address] [place] [address] 02/22/2025 11:00 AM [place] [address] [place], [place] [phone] Georges Gandhi MD 3 [facility] [address] [place] [address] 02/28/2025 10:15 AM CDT Office Visit [facility], [address] [address] Georges Gandhi MD 3 [facility] [address] [place] [address] 03/19/2025 10:00 AM CDT Appointment [facility] [address] [place], [place] [phone] Chi Earl MD Three [facility]. [address] [address] 04/03/2025 11:30 AM CDT Office Visit [facility] [address] [place] [address] Chi Earl MD [facility] [address] [address] documented as of this encounter Visit Diagnoses Not on filedocumented in this encounter Additional Health Concerns Infection Onset Date Last Indicated Resolved Time COVID-19 Rule Out 01/06/2023 01/06/2023 01/06/2023 3:30 PM METAL STAMPER COVID-19 Rule Out 01/06/2023 01/06/2023 01/07/2023 11:07 AM METAL STAMPER COVID-19 Rule Out 08/21/2024 08/21/2024 08/21/2024 1:35 PM CDT Assessment Noted Time PHQ-9 Depression Total Score: 0 12/24/19 10:55 AM METAL STAMPER documented as of this encounter Care Teams Digital Ad Trafficker Relationship Specialty Start Date End Date Zack Sweeney MD PCP - General FAMILY PRACTICE 04/14/16 Chi Earl MD [facility] [address] [address] [facility] Assessment Specialist CARDIOVASCULAR DISEASE 04/14/16 Marylou Carter RN [address] [place] [address] Seasonal Delivery Driver (Ambulatory) REGISTERED NURSE 01/07/23 02/08/23 Marylou Carter RN [address] [place] [address] Seasonal Delivery Driver (Ambulatory) REGISTERED NURSE 06/06/23 08/09/23 documented as of this encounter
--- OUTSIDE RECORDS SUMMARY | 2024-12-07 02:17 | XMS_ITS | Encounter Summary ---
Author Organization [facility] Address [address] [place] [address]. [place] [address] [place] [address] Care Team Providers Care Tray Line Supervisor Name Role Phone Zack Sweeney MD Primary Care Provider [phone] Chi Earl MD Unavailable [phone] Reason for Visit * Reason Onset Date Comments Orders 12/05/2024 Encounter Details Date Type Department Care Team (Late st Contact Info) Description 12/05/2024 Telephone [facility] [address] [place] [address] Zack Sweeney MD [address] [place] [address] Orders Social History Tobacco Use Types Packs/Day Years [...] often do you attend chur ch or yazidism services? Never 06/03/2023 Do you belong to any clubs o r organizations such as mu-ism groups, unions, fraternal or athletic groups, or [...] Recorded Patient Health Questionnaire-2 Score 0 08/21/2024 [facility] - Occupational Stress [...] place to sleep or slept in a long-term (including now)? No 06/03/2023 Comments No Sex and Gender Information Value Date Recorded Sex Assigned at Not on file Legal Sex Female 4:17 PM BUSINESS DEVELOPMENT DIRECTOR Gender Identity Female 02/10/2022 1:07 PM CDT [...] Assessment Author Status No 06/03/2023 6:13 AM Cyo Silveira RN Active * Because of a [...] in this encounter Progress Notes * Loren Rock RN - 12/05/2024 4:42 PM CST Received call from Bharti with Dr Rodriguez's office requesting a good call number for Dr Sweeney.Per Bharti, patient is at [facility] now to have test done but radiologist said that they can only chair mechanic results to the ordering provider so Dr Rodriguez will call Dr Sweeney with results. Provided Rosalee's cell number (with his permission) and advised that he is out of the office so they may need to start patient on anticoagulants if unable to reach him. Bharti voiced understanding and will let patient know and states that Dr Rodriguez is leaving for [place] this evening. LOREN ROCK RN 12/05/2024 NESS DEVELOPMENT DIRECTOR * Loren Rock RN - 12/05/2024 4:16 PM CST Received call from Keiko at Dr Rodriguez's office who states that patient is there now and Dr Rodriguez is wanting to order a venous doppler due to LLE swelling and is wanting to know if Dr Sweeney will manage the results. Advised that Dr Sweeney is gone for the day but he may address and that I would send him a message. LOREN ROCK RN 12/05/2024 NESS DEVELOPMENT DIRECTOR documented in this encounter Plan of Treatment Upcoming Encounters Date Type Department Care Team (Late st Contact Info) Description 02/07/2025 1:00 PM CDT Office Visit [facility] [address] [place] [address] Zack Sweeney MD [address] [place] [address] 02/22/2025 11:00 [place] [address] [place] [address] Georges Gandhi MD 3 [facility] [address] [place] [phone] 02/28/2025 10:15 AM CDT Office Visit [facility] THREE [facility], [address] [place] [address] Georges Gandhi MD 3 [facility] [address] [place] [address] 03/19/2025 10:00 AM CDT Appointment [facility] [address] [place] [address] Chi Earl MD Three [facility]. [address] [place] [address] 04/03/2025 11:30 AM CDT Office Visit [facility] [address] [place] [phone] Chi Earl MD Three [facility]. [address] [place] [address] documented as of this encounter Goals Goal [...] documented as of this encounter Care Teams Tray Line Supervisor Relationship Specialty Start Date End Date Zack Sweeney MD PCP - General FAMILY PRACTICE 04/14/16 Chi Earl MD [facility]. [address] [address] [place] Pecan Picker CARDIOVASCULAR DISEASE 04/14/16 documented as of this encounter
--- OUTSIDE RECORDS SUMMARY | 2024-12-07 02:17 | XMS_ITS | Encounter Summary ---
Author Organization [facility] Address [address] [place] [address]. [place] [address] [place] [address] Care Team Providers Care Color Making Supervisor Name Role Phone Zack Sweeney MD Primary Care Provider Chi Earl MD Unavailable [phone] Marylou Carter RN Unavailable [phone] Marylou Carter RN Unavailable [phone] Encounter Details Date Type Department Care Team (Late st Contact Info) Description 12/13/2016 Abstract [facility] Conversion Md, Generic ConversionMD Social History Tobacco Use Types Packs/Day Years Used Date Smoking Tobacco: Former Cigarettes Q uit: 1980 Smokeless Tobacco: Never Alcohol Use Standard Drinks/Week Comments Yes 0 (1 standard drink = 0.6 oz pur e alcohol) 3 drinks a week Comments Unknown Sex and Gender Information Value Date Recorded Sex Assigned at Not on file Legal Sex Female 4:17 PM FIBERGLASS CONTAINER WINDING OPERATOR Gender Identity Female 02/10/2022 1:07 PM CDT Sexual Orientation Not on file documented as of this encounter Plan of Treatment Upcoming Encounters Date Type Department Care Team (Late st Contact Info) Description 02/07/2025 1:00 PM CDT Office Visit [address] [phone] Zack Sweeney MD [address] [place] [address] 02/22/2025 11:00 [place] [address] [place] [address] Georges Gandhi MD 3 [facility] [address] [place] [address] 02/28/2025 10:15 AM CDT [facility] THREE [facility], [address] [place] [address] Georges Gandhi MD 3 [facility] [address] [place] [address] 03/19/2025 10:00 AM CDT Appointment [facility] [address] [facility] [place] [address] Chi Earl MD Three [facility]. [address] [place] [address] 04/03/2025 11:30 AM CDT Office Visit [facility] [address] [place] [address] Chi Earl MD Three [facility]. [address] [address] documented as of this encounter Visit Diagnoses Not on filedocumented in this encounter Additional Health Concerns Infection Onset Date Last Indicated Resolved Time COVID-19 Rule Out 02/17/2021 02/17/2021 02/18/2021 10:16 AM CDT COVID-19 Rule Out 01/06/2023 01/06/2023 01/06/2023 3:30 PM FIBERGLASS CONTAINER WINDING OPERATOR COVID-19 Rule Out 01/06/2023 01/06/2023 01/07/2023 11:07 AM FIBERGLASS CONTAINER WINDING OPERATOR COVID-19 Rule Out 08/21/2024 08/21/2024 08/21/2024 1:35 PM CDT documented as of this encounter Care Teams Color Making Supervisor Relationship Specialty Start Date End Date Zack Sweeney MD PCP - General FAMILY PRACTICE 04/14/16 Chi Earl MD [facility]. [address] [address] [facility] The[facility] CARDIOVASCULAR DISEASE 04/14/16 Marylou Carter RN [address] [place] [address] Senior Games Technician (Ambulatory) REGISTERED NURSE 01/07/23 02/08/23 Marylou Carter RN [address] [place], [place] [phone] Senior Games Technician (Ambulatory) REGISTERED NURSE 06/06/23 08/09/23 documented as of this encounter
--- OUTSIDE RECORDS SUMMARY | 2024-12-07 02:17 | XMS_ITS ---
Author Organization [facility] Address [address] [place], [place] [address] Care Team Providers Care Hearth Feeder Name Role Phone ENOC DL Unavailable [phone] Zack Sweeney Unavailable Unavailable REASON FOR VISIT *General care Encounters Encounter Location Date Provider Diagnosis [facility] [place] [address] [place], [place] [id number] 11/19/2024 DL STUBBS Plan Of Treatment Next Appt Details Provider Name:DL STUBBS, 01:00:00 PM, [address], [place], [place], [id number], Progress Notes * EVAN BUSTOS DDOB:1940 (84 yo F)Acc No.[id number]:11/19/2024 Patient:?EVAN BUSTOS Provider:?Dl Stubbs DPM :1940???Age:84 Y???Sex:Female D ate:11/19/2024 Address:[address] [facility] Subjective: * Chief Complaints: * ???1. *General care. * Medical History:? Objective: * Vitals:? Assessment: Plan: * Treatment: * Billing Information: * Visit Code:? * Procedure Codes:? * Electronic signature of DL STUBBS DPM on 12/07/2024 at 02:17 AM MACHINE TURNER Sign off status: Pending * Provider:Beverly Stubbs DPM Date:?11/19/19 25 Generated for Tyler canada/Ashanti/Kedar on:?12/07/2024 02:17 AM MACHINE TURNER
--- OUTSIDE RECORDS SUMMARY | 2024-12-07 02:17 | XMS_ITS ---
Author Organization [facility] Address [address] [place], [place] [address] Care Team Providers Care Electric Crane Operator Name Role Phone DL STUBBS Unavailable [phone] Zack Sweeney Unavailable Unavailable REASON FOR VISIT Patient presents for at-risk foot care . The patient has painful toenails that cause difficulty with ambulation and shoegear. The onset is gradual Encounters Encounter Location Date Provider Diagnosis [facility] [place] [address] [place], [place] [id number] 07/23/2024 DL STUBBS Tinea unguium B35.1 ; Pain in right toe(s) M79.674 ; Pain in left toe(s) M79.675 and Atherosclerosis of miccosukee arteries of extremities with intermittent claudication, bilateral legs I70.213 Assessments Encounter Date Diagnosis (ICD Code) Assessment Notes Treatment Notes Treatment Clinical Notes Section Notes 07/23/2024 Tinea unguium (ICD-10 - B35.1) FUNGAL [...] Pain in left toe(s) (ICD-10 - M79.675) 07/23/2024 Atherosclerosis of miccosukee arteries of extremities with intermittent claudication, bilateral legs (ICD-10 - I70.213) Plan Of Treatment Treatment Notes Assessment Notes Tinea unguium FUNGAL TOENAILS: Discussed various treatment options for fungal toenails including debridement, topical antifungals, oral antifungals, toenail avulsion, or toenail matrixectomy. NAIL DEBRIDEMENT: Nails 1-5 Bilateral were debrided extensively with nail nippers and emery board, reducing length and girth to pink healthy tissue with any subungual debris and necrotic tissue removed Next Appt Details Follow Up: 10-12 Weeks, Reas on: At Risk Foot care, sooner if problems arise Provider Name:DL STUBBS, 01:00:00 PM, [address], [address], [id number], Progress Notes * EVAN BUSTOS DDOB:1940 (83 yo F)Acc No.[id number]:07/23/2024 Patient:?EVAN BUSTOS Provider:?Dl Stubbs DPM :1940???Age:83 Y???Sex:Female D ate:07/23/2024 [facility] Subjective: * Chief Complaints: * ???1. Patient presents for a t-risk foot care . The patient has painful toenails that cause difficulty with ambulation and shoegear. The onset is gradual. * HPI: ???HPI:?General care?Patient presents to the office for at risk foot care. Patient states that their nails are thickened, elongated and painful. Patient states that it is aggravated by shoe gear. Onset is gradual. Patient denies being diabetic., Patient denies taking blood thinners., Date last seen by Dr. Sweeney was 05/2024., Initials mca.? sample. * ROS:?General / Constitutional:?Patient denies?chills, fever, weight loss.?Cardiovascular:?Patient denies?edema, shortness of breath, wounds.?Skin:?Patient complains of?fungal nails, nail changes.?Neurologic:?Patient denies?balance difficulty, confusion, difficulty speaking, dizziness.? * Medical History:? Objective: * Examination: ???Constitutional: ?Constitutional?The patient is awake, alert, well developed, well groomed and well nourished.?Dermatologic: ?Skin findings:?Skin is thin, atrophic and lacking pedal hair.?Nail pathology:?Nails 1, 2, 3, 4, and 5 bilateral are elongated, thick, discolored, and dystrophic with subungual debris. They are painful to palpation.?Vascular: ?Dorsalis pedis pulse:?1/4?bilateral.?Posterior tibial pulse:?0/4?bilateral.?Capillary refill:?greater than 3 seconds.?Edema:?No edema, bilateral.?Neurologic: ?Gross sensation?Gross sensation is intact to light touch.?Musculoskeletal: ?Muscle Strength?Muscle strength is 5/5 in regards to dorsiflexion, plantarflexion, inversion, and eversion in bilateral lower extremities.? Assessment: * Assessment: 1.?Tinea unguium - B35.1 (Pr imary)?2.?Pain in right toe(s) - M79.674?3.?Pain in left toe(s) - M79.675?4.?Atherosclerosis of miccosukee arteries of extremities with intermittent claudication, bilateral legs - I70.213? Plan: * Treatment: * Follow Up:?10-12 Weeks (Reas on: At Risk Foot care, sooner if problems arise) * Billing Information: * Visit Code:? 98485 Office Visit, Est Pt., Level 3. * Procedure Codes:? * Sign off status: Completed true * Provider:?Dl Stubbs DPM Date:?07/23/20 24 Generated for Tyler canada/Ashanti/Kedar on:?12/07/2024 02:17 AM DEMAND EQUIPMENT REPAIRER History and Physical Notes * HPI (History of Present Illness) Category Sub-Category Detail Notes Category Not es HPI General care Patient presents to the office for at risk foot care. Patient states that their nails are thickened, elongated and painful. Patient states that it is aggravated by shoe gear. Onset is gradual. Patient denies being diabetic., Patient denies taking blood thinners., Date last seen by Dr. Sweeney was 05/2024., Initials mca sample Examination Category Sub-Category Detail Notes Category Not es Dermatologic Skin findings: Skin is thin, at rophic and lacking pedal hair Nail pathology: Nails 1, 2, 3, 4, an d 5 bilateral are elongated, thick, discolored, and dystrophic with subungual debris. They are painful to palpation Neurologic Gross sensation Gross sensation is intact to light touch Vascular Dorsalis pedis pulse: 1/4 bilateral Edema: No edema, bilateral Capillary refill: greater than 3 secon ds Posterior tibial pulse: 0/4 bilateral Musculoskeletal Muscle Strength Muscle strength is 5/5 in regards to dorsiflexion, plantarflexion, inversion, and eversion in bilateral lower extremities Constitutional Constitutional The patient is a wake, alert, well developed, well groomed and well nourished
--- OUTSIDE RECORDS SUMMARY | 2024-12-07 02:17 | XMS_ITS ---
Author Organization [facility] Address [address] [place], [place] [address] Care Team Providers Care Flatwork Washer Name Role Phone DL STUBBS Unavailable [phone] Zack Sweeney Unavailable Unavailable REASON FOR VISIT Patient presents for at-risk foot care . The patient has painful toenails that are causing difficulty with ambulation and shoegear. The onset is gradual. The patient has diabetes mellitus Encounters Encounter Location Date Provider Diagnosis [facility] [address] [place], [place] [id number] 12/03/2024 DL STUBBS Tinea unguium B35.1 ; Pain in right toe(s) M79.674 ; Pain in left toe(s) M79.675 ; Atherosclerosis of [place] arteries of extremities with intermittent claudication, bilateral legs I70.213 and Type 2 diabetes mellitus with other circulatory complications E11.59 Assessments Encounter Date Diagnosis (ICD Code) Assessment Notes Treatment Notes Treatment Clinical Notes Section Notes 12/03/2024 Tinea unguium (ICD-10 - B35.1) NAIL DEBRIDEMENT: Nails 1-5 Bilateral were debrided extensively with nail nippers and emery board, reducing length and girth to pink healthy tissue with any subungual debris and necrotic tissue removed 12/03/2024 Pain in right toe(s) (ICD-10 - M79.674) 12/03/2024 Pain in left toe(s) (ICD-10 - M79.675) 12/03/2024 Atherosclerosis of [place] arteries of extremities with intermittent claudication, bilateral [...] the Amputation Prevention Guide. Plan Of Treatment Treatment Notes Assessment Notes Tinea unguium NAIL DEBRIDEMENT: Na ils 1-5 Bilateral were debrided extensively with nail nippers and emery board, reducing length and girth to pink healthy tissue with any subungual debris and necrotic tissue removed Type 2 diabetes mellitus wit h other circulatory complications Diabetic Foot Care: The patient was educated on diabetes and the lower extremity. The patient was instructed to check his feet daily to report any problems or signs of infection immediately. The patient was provided written information on Diabetic Foot Care as well as the Amputation Prevention Guide. Next Appt Details Follow Up: 10 - 12 weeks, Re ason: At-Risk Foot care, sooner if problems develop. Provider Name:DL STUBBS, 01:00:00 PM, [address], [address], [id number], Progress Notes * EVAN BUSTOS DDOB:1940 (84 yo F)Acc No.[id number]:12/03/2024 Patient:?EVAN BUSTOS Provider:?Dl Stubbs DPM :1940???Age:84 Y???Sex:Female D ate:12/03/2024 [place] [address] Subjective: * Chief Complaints: * ???1. Patient presents for a t-risk foot care . The patient has painful toenails that are causing difficulty with ambulation and shoegear. The onset is gradual. The patient has diabetes mellitus. * HPI: ???HPI:?General care?Patient presents to the office for diabetic foot care. Patient states that their nails are thickened, elongated and painful. Patient states that it is aggravated by shoe gear. Onset is gradual., Patient denies taking blood thinners., Date last seen by Dr. Sweeney was 09/2024., Initials [facility] , Patient presents to the office for diabetic foot care. Patient states that their nails are thickened, elongated and painful. Patient states that it is aggravated by shoe gear. Onset is gradual., Patient denies taking blood thinners., Date last seen by Dr. Sweeney was March 2024., Initialjared .? * ROS:?General / Constitutional:?Patient denies?chills, fever, weight loss.?Cardiovascular:?Patient denies?edema, shortness of breath, wounds.?Skin:?Patient complains of?fungal nails, nail changes.?Neurologic:?Patient denies?balance difficulty, confusion, difficulty speaking, dizziness.? * Medical History:? Objective: * Vitals:? * Examination: ???Physical Examination: ?General appearance:?Alert, pleasant, well-nourished and in no acute distress.?Dermatologic: ?Skin findings:?Skin is thin, atrophic and lacking pedal hair.?Nail pathology:?Nails 1, 2, 3, 4, and 5 bilateral are elongated, thick, discolored, and dystrophic with subungual debris. They are painful to palpation.?Vascular: ?Dorsalis pedis pulse:?1/4?bilateral.?Posterior tibial pulse:?0/4 bilateral.?Capillary refill:?greater than 3 seconds.?Edema:?No edema bilateral.?Neurologic: ?Gross sensation?Grossly intact to light touch. There is negative Tinel's sign.?Musculoskeletal: ?Muscle Strength?Muscle strength is 5/5 in regards to dorsiflexion, plantarflexion, inversion, and eversion in bilateral lower extremities.? 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 Plan: * Treatment: 2.?Type 2 diabetes mellitus with other circulatory complications? Notes: Diabetic Foot Care: The patient was educated on diabetes and the lower extremity. The patient was instructed to check his feet daily to report any problems or signs of infection immediately. The patient was provided written information on Diabetic Foot Care as well as the Amputation Prevention Guide. ?? * Follow Up:?10 - 12 weeks (Re ason: At-Risk Foot care, sooner if problems develop.) * Billing Information: * Visit Code:? * Procedure Codes:? * Electronic signature of DL STUBBS DPM on 12/07/2024 at 02:16 AM DIRECTOR EPIDEMIOLOGY Sign off status: Pending * Provider:?Dl Stubbs DPM Date:?12/03/19 Generated for Tyler canada/Ashanti/Jaspalitting on:?12/07/2024 02:16 AM DIRECTOR EPIDEMIOLOGY History and Physical Notes * HPI (History of Present Illness) Category Sub-Category Detail Notes Category Not es HPI General care Patient presents to the office for diabetic foot care. Patient states that their nails are thickened, elongated and painful. Patient states that it is aggravated by shoe gear. Onset is gradual., Patient denies taking blood thinners., Date last seen by Dr. Sweeney was 09/2024., Initials [facility] , Patient presents to the office for diabetic foot care. Patient states that their nails are thickened, elongated and painful. Patient states that it is aggravated by shoe gear. Onset is gradual., Patient denies taking blood thinners., Date last seen by Dr. Sweeney was March 2024., Initials JR Examination Category Sub-Category Detail Notes Category Not es Dermatologic Skin findings: Skin is thin, at rophic and lacking pedal hair Nail pathology: Nails 1, 2, 3, 4, an d 5 bilateral are elongated, thick, discolored, and dystrophic with subungual debris. They are painful to palpation Neurologic Gross sensation Grossly intact t o light touch. There is negative Tinel's sign Vascular Dorsalis pedis pulse: 1/4 bilateral Edema: No edema bilateral Capillary refill: greater than 3 secon ds Posterior tibial pulse: 0/4 bilateral Physical Examination General appearance: Alert, pleasant, well-nourished and in no acute distress Musculoskeletal Muscle Strength Muscle strength is 5/5 in regards to dorsiflexion, plantarflexion, inversion, and eversion in bilateral lower extremities
--- OUTSIDE RECORDS SUMMARY | 2024-12-07 02:17 | XMS_ITS | Clinical Summary ---
Author Organization [facility] [employer] Address [address] [place] [address] Care Team Providers Care Animal Physiology Teacher Name Role Phone Zack Sweeney MD Primary Care Provider [phone] Source Comments [facility] [employer],non-owned Affiliates and Associated Physician Practices is amultiple site organization consisting of ambulatory clinics and hospital sitesin [place], [place], [place] and [place]. This disclosure is being madepursuant to the Care Everywhere program and may not contain all information available regarding this patient. Last updated 18.[facility] Allergies No known active allergies Medications * [...] 08/06/2019 9:13 AM CDT Plan of Treatment Health Maintenance Due Date Last Done Comments BONE DENSITY TESTING 1940 DTAP/TDAP/TD VACCINES (1 - Tdap) 1958 PNEUMOCOCCAL VACCINE 50+ (1 of 1 - PCV) 1989 ZOSTER VACCINE (1 of 2) 1989 Respiratory Syncytial Virus (RSV) Vaccine Pt: or over 60 yrs (1 - 1-dose 75+ series) 2014 COVID-19 VACCINE ( - 2023-2 5 season) 2024 INFLUENZA VACCINE (#1) 2024 DEPRESSION SCREENING 11/14/2024 MEDICARE AWV ? CALENDAR YEAR 2024 HEPATITIS B VACCINE Aged Out No longe r eligible based on patient's age to complete this topic HIB VACCINE Aged Out No longer eligi ble based on patient's age to complete this topic HPV VACCINE Aged Out No longer eligi ble based on patient's age to complete this topic MENINGOCOCCAL (Group B) VACCINE Aged Out No longer eligible based on patient's age to complete this topic MENINGOCOCCAL VACCINE Aged Out No nuno marion eligible based on patient's age to complete this topic Care Teams Animal Physiology Teacher Relationship Specialty Start Date End Date Zack Sweeney MD PCP - General 04/21/18
--- OUTSIDE RECORDS SUMMARY | 2024-12-07 02:17 | XMS_ITS | Encounter Summary ---
Author Organization [facility] Address [address] [place] [address]. [place] [address] [place] [address] Care Team Providers Care Vault Worker Name Role Phone Zack Sweeney MD Primary Care Provider Chi Earl MD Unavailable [phone] Marylou Carter RN Unavailable [phone] Marylou Carter RN Unavailable [phone] Encounter Details Date Type Department Care Team (Late st Contact Info) Description 02/20/2021 Prep for Procedure [facility] Pre-Admission Testing [address] [facility] [place], [place] [id number] Chet Barclay MD [address] [place] [address] Social History Tobacco Use Types Packs/Day Years Used Date Smoking Tobacco: Former Cigarettes Q uit: 1980 Smokeless Tobacco: Never Alcohol Use Standard Drinks/Week Comments Yes 1.7 (1 standard drink = 0.6 oz p ure alcohol) socially AUDIT-C Answer Date Recorded Frequency of Alcohol Consumption 2-3 times a wee k 08/02/2018 Average Number of Drinks 1 or 2 018 Frequency of Binge Drinking Never 07/15 PHQ-2 Answer Date Recorded PHQ-2 Score - If the patient scores above 3, please move on to questions 3-9 0 02/18/2021 Comments No Sex and Gender Information Value Date Recorded Sex Assigned at Not on file Legal Sex Female 4:17 PM CONDOMINIUM MANAGER Gender Identity Female 02/10/2022 1:07 PM CDT Sexual Orientation Not on file Occupation Industry Job Start Date Job End Date Not on file Not on file Not on file Not on file COVID-19 Exposure Response Date Recorded In the last month, have you been in contact with someone who was confirmed or suspected to have Coronavirus / COVID-19? No / Unsure 02/20/2021 7:31 AM CDT documented as of this encounter Plan of Treatment Upcoming Encounters Date Type Department Care Team (Late st Contact Info) Description 02/07/2025 1:00 PM CDT Office Visit [facility] [address] [place] [phone] Zack Sweeney MD [address] [place] [phone] 02/22/2025 11:00 [place] [address] [place] [address] Georges Gandhi MD [address] [facility] [address] [place] [address] 02/28/2025 10:15 AM CDT Office Visit [facility] [place] [address] Georges Gandhi MD [address] [facility] [address] [place] [address] 03/19/2025 10:00 AM CDT Appointment [facility] [address] [place], [place] [phone] Chi Earl MD [facility]. [address] [place] [address] 04/03/2025 11:30 AM CDT Office Visit [facility] [address] [place] [address] Chi Earl MD [facility]. [address] [place] [address] documented as of this encounter Results * PRE-SURGICAL/PRE-PROCEDURE CORONAVIRUS (COVID 19) (02/17/2021 9:48 AM CDT) CORONAVIRUS SARS COV 2 PCR (RESP) NOT DETECTED NOT DETECTED 02/18/2021 10:16 AM CDT [facility] Comment: A Not Detected (negative) test result for this test means that SARS- CoV-2 RNA was not present in the specimen above the limit of detection. A negative result does not rule out the possibility of COVID-19 and should not be used as the sole basis for treatment or patient management decisions. ??If COVID-19 is still suspected, based on exposure history together with other clinical findings, re-testing should be considered in consultation with public health authorities. Laboratory test results should always be considered in the context of clinical observations and epidemiological data in making a final diagnosis and patient management decisions. Please review the Fact Sheets and FDA authorized labeling available for health care providers and patients using the following websites: https://www.[employer].com/home/Covid-19/HCP/QuestIVD/fact- sheet.html https://www.[employer]/home/Covid-19/Patients/ QuestIVD/fact-sheet.html This test has been authorized by the FDA under an Emergency Use Authorization (EUA) for use by authorized laboratories. Due to the current public health emergency, [facility] is receiving a high volume of samples from a wide variety of swabs and media for COVID-19 testing. In order to serve patients during this public health crisis, samples from appropriate clinical sources are being tested. Negative test results derived from specimens received in non-commercially manufactured viral collection and transport media, or in media and sample collection kits not yet authorized by FDA for COVID-19 testing should be cautiously evaluated and the patient potentially subjected to extra precautions such as additional clinical monitoring, including collection of an additional specimen. Methodology: ??Nucleic Acid Amplification Test (NAAT) includes RT-PCR or TMA Additional information about COVID-19 can be found at the [facility] website: www.[employer]/Covid19. Test performed at [facility] [address] [place], [place] ??[address] Director: NO JEAN DO,MPH FIRST TEST NO 02/17/2021 11:49 AM CDT [facility] EMPLOYED IN HEALTHCARE NO 02/17/2021 11:49 AM CDT [facility] SYMPTOMATIC DEFINED BY CDC NO 02/17/2021 11:49 AM CDT [facility] DATE OF SYMPTOM ONSET NO 02/17/2021 12:27 PM CDT [facility] HOSPITALIZATION STATUS NO 02/17/2021 11:49 AM CDT [facility] PATIENT IN ICU NO 02/17/2021 11:49 AM CDT [facility] RESIDENT OF [facility] NO 02/17/2021 11:49 AM CDT [facility] NO 02/17/2021 12:27 PM CDT [facility] PATIENT'S RACE WHITE OR 02/17/2021 11:49 AM CDT [facility] ETHNICITY NONHISPANIC 02/17/2021 11:49 AM CDT [facility] SOURCE (QST) NASOPHARYNGEAL SWAB 02/17/2021 11:49 AM CDT [facility] NASOPHARYNGEAL SWAB / Unknown 02/17/2021 9:48 AM CDT us Chet Barclay MD MICROBIOLOGY - GENERAL ORDERABL ES Final Result [facility] [address] [place] [address], [facility] [address] [place] [address], documented in this encounter Visit Diagnoses Diagnosis Preoperative testing- Primary Preoperative examination, unspecified documented in this encounter Additional Health Concerns Infection Onset Date Last Indicated Resolved Time COVID-19 Rule Out 01/06/2023 01/06/2023 01/06/2023 3:30 PM CONDOMINIUM MANAGER COVID-19 Rule Out 01/06/2023 01/06/2023 01/07/2023 11:07 AM CONDOMINIUM MANAGER COVID-19 Rule Out 08/21/2024 08/21/2024 08/21/2024 1:35 PM CDT Assessment Noted Time PHQ-9 Depression Total Score: 0 12/31/19 21 1:46 PM CONDOMINIUM MANAGER documented as of this encounter Care Teams Vault Worker Relationship Specialty Start Date End Date Zack Sweeney MD PCP - General FAMILY PRACTICE 04/14/16 Chi Earl MD [facility] [place] [address] [place] Assessment Specialist CARDIOVASCULAR DISEASE 04/14/16 Marylou Carter RN [address] [place] [address] Commercial Credit Portfolio Manager (Ambulatory) REGISTERED NURSE 01/07/23 02/08/23 Marylou Carter RN [address] [place] [address] Commercial Credit Portfolio Manager (Ambulatory) REGISTERED NURSE 06/06/23 08/09/23 documented as of this encounter
--- OUTSIDE RECORDS SUMMARY | 2024-12-07 02:17 | XMS_ITS | Encounter Summary ---
Author Organization [facility] Address [address] [place] [address] Care Team Providers Care Clinical Informatics Manager Name Role Phone Zack Sweeney MD Primary Care Provider [phone] Encounter Details Date Type Department Care Team (Late st Contact Info) Description 09/30/2023 Lab Requisition [facility] [address] [place] [address] Román Bridges MD [address] [place] [address] Social History Tobacco Use Types [...] Priority Date/Time Associated Diagnosis Comments DERMATOPATHOLOGY Routine 09/29/2023 12:0 0 AM EMERGENCY DEPARTMENT PHYSICIAN documented in this encounter Results * DERMATOPATHOLOGY (09/29/2023 12:00 AM EMERGENCY DEPARTMENT PHYSICIAN) Case Report Dermatopathology Report ? Case: [id number] ? Authorizing Provider: ??Román Bridges MD ?Collected: ? 09/29/2023 12:00 AM ? Ordering Location: ? [facility] ? Received: ?09/30/2023 09:56 AM ? Pathologist: ? Bri Rios MD ? Specimen: ?Skin, right medial max ? 3 2:44 PM [facility] Final Diagnosis Specimen A. SKIN, right medial max: BASAL CELL CARCINOMA, NODULAR TYPE (C44.319) 3 2:44 PM [facility] Clinical History Papule R/O BCC 3 2:44 PM [facility] Gross Description Specimen A: Received is one formalin filled container labeled with the patient's name and designated right medial max. The specimen consists of a shave biopsy measuring 5x4x1 mm. Jar 0. 3 2:44 PM [facility] Microscopic Description Specimen A. SKIN, right medial max: Within the dermis there are aggregates of basaloid cells with a high nuclear to cytoplasmic ratio and peripheral palisading. 3 2:44 PM [facility]ER[facility] Disclaimer An external and internal positive and negative controls are appropriate for the histochemical, immunohistochemical and immunofluorescence stain(s) in this case (if any), except where stated explicitly. The performance characteristics of the stain(s) cited in this report were developed and its performance characteristic determined by the Dermatopathology Laboratory at [facility], directed by Dr. Tiny Avendaño. These tests need not be, and therefore are not, approved by the [place] Food and Drug Administration. The tests are used for clinical purposes. Billing Codes Specimen Charges Stain Charges 09642 1 3 2:44 PM EMERGENCY DEPARTMENT PHYSICIAN DERMATOPATHOLOGY LABORATORY Embedded Images 3 2:44 PM EMERGENCY DEPARTMENT PHYSICIAN DERMATOPATHOLOGY LABORATORY Pathology/Cytolog y TISSUE SPECIMEN FROM SKIN / Unknown 09/29/2023 09/30/2023 9:56 AM EMERGENCY DEPARTMENT PHYSICIAN Román Bridges MD LAB - PATHOLOGY/CYTO LOGY ORDERABLES DERMATOPATHOLOGY LABORATORY [facility] - Department of Dermatology [facility] Medicine [address] [place] [address], [address] [phone] documented in this encounter Visit Diagnoses Not on filedocumented in this encounter Care Teams Clinical Informatics Manager Relationship Specialty Start Date End Date Zack Sweeney MD PCP - General 04/21/18 documented as of this encounter
--- OUTSIDE RECORDS SUMMARY | 2024-12-07 02:18 | XMS_ITS | Referral Summary ---
Author Organization [facility] Address [address] [place] [address] Care Team Providers Care Java Software Developer Name Role Phone Zack Sweeney MD Primary Care Provider [phone] Allergies No known active allergies Medications amLODIPine (NORVASC) 5 mg tablet Take 1 tablet (5 mg total) by mouth daily 2 Active aspirin 81 mg chewable tablet Take 1 tablet (81 mg total) by mouth nightly 7 Active dorzolamide (TRUSOPT) 2 % ophthalmic solution Administer 1 drop into affected eye(s) nightly 8 Active escitalopram (LEXAPRO) 20 mg tablet Take 1 tablet (20 mg total) by mouth daily 8 Active furosemide (LASIX) 20 mg tablet Take 1 tablet (20 mg total) by mouth daily 3 Active lamoTRIgine (LaMICtal) 200 mg tablet Take 1 tablet (200 mg total) by mouth daily 8 Active latanoprost (XALATAN) 0.005 % ophthalmic solution 1 drop nightly 3 Active losartan (COZAAR) 50 mg tablet Take 1 tablet (50 mg total) by mouth 2 (two) times a day 8 Active meloxicam (MOBIC) 7.5 mg tablet Take 1 tablet (7.5 mg total) by mouth 2 (two) times a day 9 Active metoprolol XL (TOPROL-XL) 25 mg extended release tablet Take 3 tablets (75 mg total) by mouth daily 8 Active potassium chloride ER 10 mEq CR tablet Take 1 tablet/capsule (10 mEq total) by mouth daily 3 Active simvastatin (ZOCOR) 20 mg tablet Take 1 tablet (20 mg total) by mouth daily 8 Active Active Problems Problem Noted Date Diagnosed Date Dyspnea on exertion 04/15/2023 Assessment & Plan (05/06/2023 11:15 AM CDT): Patient currently not on inhalers. She states her breathing returns to baseline with resting. Assessment & Plan (04/15/2023 8:18 AM CDT): The patient does have dyspnea on exertion walking up 1 flight of stairs. I will order full PFTs to be performed at [facility] for the preop pulmonary evaluation and she will follow-up with me in 3 weeks. Lung nodules 04/15/2023 Assessment & Plan (05/06/2023 11:20 AM CDT): We are awaiting results Assessment & Plan (04/15/2023 8:18 AM CDT): The patient has residual lung nodules. I will attempt to obtain the chest CT on a disc from [facility] in December 2022 as well as a chest CT from [facility] in [place] that was performed in February 2023. Will order a follow-up chest CT to be performed at [facility] in [facility] in late May 2023. Social History Tobacco Use Types Packs/Day Years Used Date Smoking Tobacco: Former Cigarettes Tobacco Cessation:Counseling Given: Not Answered Comments:Quit in 1979 Personal Safety Answer Date Recorded Getting School Help Needed Not on file 10/26 Comments Unknown Sex and Gender Information Value Date Recorded Sex Assigned at Not on file Legal Sex Female 2:03 AM BALLAST REGULATOR OPERATOR Gender Identity Not on file Sexual Orientation Not on file Last Filed Vital Signs Vital Sign Reading Time Taken Comments Blood Pressure 154/76 05/06/2023 10:55 AM CDT Pulse 59 05/06/2023 10:55 AM CDT Temperature - - Respiratory Rate 18 05/06/2023 10:55 AM CDT Oxygen Saturation 93% 05/06/2023 10:55 AM CDT Inhaled Oxygen Concentration - - Weight 81.6 kg (180 lb) 05/06/2023 10:55 AM CDT Height 165.1 cm (5' 5 ) 05/06/2023 10:55 AM CDT Body Mass Index 29.95 05/06/2023 10:55 AM CDT Plan of Treatment Not on file [facility] Care Teams Java Software Developer Relationship Specialty Start Date End Date Zack Sweeney MD PCP - General 11/13/17
--- OUTSIDE RECORDS SUMMARY | 2024-12-07 02:18 | XMS_ITS | Clinical Summary ---
Author Organization [facility] Address [address] [place] [address] Care Team Providers Care Filler Sifter Helper Name Role Phone Zack Sweeney MD Primary Care Provider [phone] Allergies No known active allergies Medications amLODIPine [...] order full PFTs to be performed at [facility] for the preop pulmonary evaluation and she will follow-up with me in 3 weeks. Lung nodules 04/15/2023 Assessment & Plan (05/06/2023 11:20 AM CDT): We are awaiting results Assessment & Plan (04/15/2023 8:18 AM CDT): The patient has residual lung nodules. I will attempt to obtain the chest CT on a disc from [facility] in December 2022 as well as a chest CT from [facility] in [place] that was performed in February 2023. Will order a follow-up chest CT to be performed at [facility] in [facility] in late May 2023. Social History Tobacco Use Types Packs/Day Years Used Date Smoking Tobacco: Former Cigarettes Tobacco Cessation:Counseling Given: Not Answered Comments:Quit in 1979 Personal Safety Answer Date Recorded Getting School Help Needed Not on file 10/26 Comments Unknown Sex and Gender Information Value Date Recorded Sex Assigned at Not on file Legal Sex Female 2:03 AM HEALTH PROFESSIONAL Gender Identity Not on file Sexual Orientation Not on file Obstetrics History Last Filed Vital Signs Vital Sign Reading [...] 05/06/2023 10:55 AM CDT Plan of Treatment Health Maintenance Due Date Last Done Comments Depression Screening 1940 Fall Risk Assessment 1940 Osteoporosis Screening-Bone Density Scan 1940 Hepatitis B Screening 1957 Well Visit 65+ 2004 Covid-19 Vaccine (2023-2 5 season) 2024 10/04/2021, 01/08/2021, 12/11/2020 Influenza Vaccine (#1) 2024 , 09/10/2020, 09/17/2019, Additional history exists DTaP/Tdap/Td Vaccine (2 - Td or Tdap) 09/24/2032 09/24/2022, 06/14/2010 Pneumococcal vaccine 65+ Completed 016, 10/25/2016, 10/17/2015 Zoster Vaccine Completed 05/09/2023, 09/24/2022 Insurance [facility] Care Teams Filler Sifter Helper Relationship Specialty Start Date End Date Zack Sweeney MD [facility] - General 11/13/17
--- OUTSIDE RECORDS SUMMARY | 2024-12-07 02:18 | XMS_ITS | Encounter Summary ---
Author Organization [facility] Address [address] [place] [address]. [place] [address] [place] [address] Care Team Providers Care Recreational Director Name Role Phone Zack Sweeney MD Primary Care Provider [phone] Chi Earl MD Unavailable [phone] Marylou Carter RN Unavailable [phone] Marylou Carter RN Unavailable [phone] Encounter Details Date Type Department Care Team (Late st Contact Info) Description 10/20/2015 Abstract [facility] CONVERSION [address] [place] [address] , Anna Golden MD Social History Tobacco Use Types Packs/Day Years Used Date Smoking Tobacco: Never Assessed Comments Unknown Sex and Gender Information Value Date Recorded Sex Assigned at Not on file Legal Sex Female 4:17 PM FINANCIAL WRITER Gender Identity Female 02/10/2022 1:07 PM CDT Sexual Orientation Not on file documented as of this encounter Plan of Treatment Upcoming Encounters Date Type Department Care Team (Late st Contact Info) Description 02/07/2025 1:00 PM CDT Office Visit [address] [id number] Zack Sweeney MD [address] [place] [phone] 02/22/2025 11:00 [place] [address] [place] [address] Georges Gandhi MD [address] [facility] [address] [place] [address] 02/28/2025 10:15 AM CDT [facility] [place] [address] [place] [address] Georges Gandhi MD 3 [facility] [address] [place] [address] 03/19/2025 10:00 AM CDT Appointment [facility] [address] [place] [address] Chi Earl MD [address] [facility]. [place] [address] [place] [address] 04/03/2025 11:30 AM CDT Office Visit [facility] [address] [place] [phone] Chi Earl MD Three [facility]. [place] [address] [place] [address] documented as of this encounter Visit Diagnoses Not on filedocumented in this encounter Additional Health Concerns Infection Onset Date Last Indicated Resolved Time COVID-19 Rule Out 02/17/2021 02/17/2021 02/18/2021 10:16 AM CDT COVID-19 Rule Out 01/06/2023 01/06/2023 01/06/2023 3:30 PM FINANCIAL WRITER COVID-19 Rule Out 01/06/2023 01/06/2023 01/07/2023 11:07 AM FINANCIAL WRITER COVID-19 Rule Out 08/21/2024 08/21/2024 08/21/2024 1:35 PM CDT documented as of this encounter Care Teams Recreational Director Relationship Specialty Start Date End Date Zack Sweeney MD PCP - General FAMILY PRACTICE 04/14/16 Chi Earl MD [facility]. [address] [address] [employer] Supervisor CARDIOVASCULAR DISEASE 04/14/16 Marylou Carter RN [address] [place] [address] [facility] (Ambulatory) REGISTERED NURSE 01/07/23 02/08/23 Marylou Carter RN [address] [place] [address] [place] (Ambulatory) REGISTERED NURSE 06/06/23 08/09/23 documented as of this encounter
== END 2024-12-05 14:35 | disposition home or self-care (01) ==
LOC: ANHIMG 14:35
PROVIDERS: PCP Family Medicine; Visit Provider Orthopaedic Surgery
DX: S92.355A Nondisplaced fracture of fifth metatarsal bone, left foot, initial encounter for closed fracture (principal); X58.XXXA Exposure to other specified factors, initial encounter
CPT/HCPCS: 73630

== ENCOUNTER 2024-12-05 16:43 | Outpatient (CLI) | payer MEDICARE, SELFPAY ==
--- NOTE | ~2024-12-05 | US_ITS ---
EXAMINATION: US venous doppler [facility] DATE: 12/05/2024 17:06 INDICATION: Left lower limb swelling TECHNIQUE: Grayscale ultrasound images without and with compression and Doppler ultrasound images of the left lower extremity veins were obtained. COMPARISON: None. FINDINGS: The visualized portions of left common femoral vein, profunda (deep) femoral vein, femoral vein, popl iteal vein, peroneal veins, posterior tibial veins, gastrocnemius vein and greater saphenous vein out flow are patent. IMPRESSION: 1. No deep venous thrombosis in the left lower limb. Reviewed, dictated and finalized at location A. TESTER
== END 2024-12-05 16:44 | disposition home or self-care (01) ==
PROVIDERS: PCP Family Medicine; Visit Provider Orthopaedic Surgery
DX: R60.0 Localized edema (principal)
CPT/HCPCS: 73630; 93971